=== PATIENT | male | born 1965 | race Caucasian/White ===

== ENCOUNTER 2021-06-19 16:50 | Outpatient (REF) | payer OTHER, SELFPAY ==
--- NOTE | ~2021-06-19 | XR_ITS ---
EXAMINATION: XR HIP, LEFT CLINICAL INFORMATION: Pain. COMPARISON: None TECHNIQUE: AP and frog-leg lateral views of the left hip. FINDINGS: Bony alignment and mineralization are normal. There is mild narrowing of the superior left acetabular joint space. There is mild subchondral sclerosis of the left acetabular roof. A tiny accessory ossification center is seen lateral to the acetabular roof. No fracture or dislocation is seen. The left femoral head appears smooth. There is a pelvic phlebolith. No foreign body is seen. XR/XR hip LT min 2V IMPRESSION: Mild osteoarthritic change is seen of the left hip. No fracture or dislocation is seen.
--- NOTE | ~2021-06-19 | XR_ITS ---
EXAMINATION: XR LUMBOSACRAL SPINE CLINICAL INFORMATION: Lower back pain. COMPARISON: Radiograph dated 11/11/2019. TECHNIQUE: AP and lateral views of the lumbar spine and lateral view of the lumbosacral junction. FINDINGS: Vertebral body heights are normal. There is a very mild lumbar dextroscoliosis. There is marked disc space narrowing at L3-4. There has been a prior posterior fusion at L4-5, with intact disc spacer, pedicular screws and posterior fixator rods. Alignment is well-maintained, and there is no hardware failure or loosening. The remaining disc spaces are relatively well-maintained. No acute fracture or spondylolisthesis is seen. There is mild spondylosis at L1-2, and moderate spondylosis is seen at L2-3. The paravertebral soft tissues are unremarkable. XR/XR lumbar spine 2-3V IMPRESSION: 1. There is stable alignment status-post L4-5 posterior fusion and discectomy. No hardware failure or loosening is seen. 2. There is marked degenerative disc disease at L3-4. 3. There is mild spondylosis at L1-2, and moderate spondylosis is seen at L2-3. 4. There is a very mild lumbar dextroscoliosis.
== END 2021-06-19 16:51 | disposition home or self-care (01) ==
LOC: HO.XRAY 16:50
PROVIDERS: PCP Internal Medicine Geriatric Medicine; Visit Provider Internal Medicine
DX: M25.552 Pain in left hip (principal); M54.50 Low back pain, unspecified
CPT/HCPCS: 72100; 73502

== ENCOUNTER 2023-06-04 10:18 | Outpatient (REF) | payer OTHER, SELFPAY ==
[2023-06-04 11:38] LABS: MANUAL DIFF FLAG NO
[2023-06-04 11:56] LABS: Basophils Absolute Auto 0.1 X10*3/uL (0.0-0.2); Basophils Percent Auto 0.9 % (0-2); Eosinophils Absolute Auto 0.2 X10*3/uL (0.0-0.4); Eosinophils Percent Auto 4.5 % (0-4); Hematocrit 48.7 % (42.0-52.0); Hemoglobin 15.5 g/dl (14.0-18.0); Lymphocytes Absolute Auto 2.5 X10*3/uL (1.2-4.9); Lymphocytes Percent Auto 46.3 % (20-40); Mean Corpuscular HGB Conc 31.8 g/dl (31.0-36.0); Mean Corpuscular Hemoglobin 26.6 pg (27.0-33.0); Mean Corpuscular Volume 83.7 fL (80.0-98.0); Monocytes Absolute Auto 0.7 X10*3/uL (0.1-1.2); Monocytes Percent Auto 12.2 % (2-11); Neutrophils Absolute Auto 1.9 x10*3/uL (2.0-8.3); Neutrophils Percent Auto 36.1 % (45-73); Platelet Count 293 X10*3/uL (160-400); Red Blood Count 5.82 X10*6/uL (4.60-5.80); White Blood Count 5.3 X10*3/uL (4.8-10.8)
[2023-06-04 12:06] LABS: Anion Gap 11 (12-20); Blood Urea Nitrogen 16 mg/dL (9-16); Calcium 9.9 mg/dL (8.4-10.2); Carbon Dioxide 28 mmol/L (22-29); Chloride 107 mmol/L (96-108); Estimated Glomerular Filt Rate > 60; Glucose Random 92 mg/dL (60-115); Potassium 4.5 mmol/L (3.3-5.1); Sodium 141 mmol/L (135-145)
== END 2023-06-04 10:19 | disposition home or self-care (01) ==
LOC: HO.HHCL 10:18
PROVIDERS: Visit Provider Internal Medicine Geriatric Medicine
DX: M47.9 Spondylosis, unspecified (principal); Z79.1 Long term (current) use of non-steroidal anti-inflammatories (NSAID)
CPT/HCPCS: 36415; 80048; 85025

== ENCOUNTER 2023-10-03 08:09 | Outpatient (REF) | payer OTHER, SELFPAY ==
[2023-10-03 11:49] LABS: MANUAL DIFF FLAG NO
[2023-10-03 12:00] LABS: Basophils Absolute Auto 0.1 X10*3/uL (0.0-0.2); Basophils Percent Auto 1.2 % (0-2); Eosinophils Absolute Auto 0.3 X10*3/uL (0.0-0.4); Eosinophils Percent Auto 4.6 % (0-4); Hematocrit 49.1 % (42.0-52.0); Hemoglobin 15.6 g/dl (14.0-18.0); Imm Gran Abs Auto 0.01 X10*3/uL (0.00-0.03); Imm Gran Pct Auto 0.2 % (0.0-0.4); Lymphocytes Absolute Auto 2.9 X10*3/uL (1.2-4.9); Lymphocytes Percent Auto 47.2 % (20-40); Mean Corpuscular HGB Conc 31.8 g/dl (31.0-36.0); Mean Corpuscular Hemoglobin 26.4 pg (27.0-33.0); Mean Corpuscular Volume 82.9 fL (80.0-98.0); Monocytes Absolute Auto 0.6 X10*3/uL (0.1-1.2); Neutrophils Absolute Auto 2.3 x10*3/uL (2.0-8.3); Neutrophils Percent Auto 37.8 % (45-73); Platelet Count 306 X10*3/uL (160-400); Red Blood Count 5.92 X10*6/uL (4.60-5.80); Red Cell Distribution Width 15.3 % (11.0-16.0); White Blood Count 6.1 X10*3/uL (4.8-10.8)
[2023-10-03 12:37] LABS: Alanine Aminotransferase 37 U/L (0-40); Albumin Level 4.2 g/dL (3.5-5.0); Alkaline Phosphatase 48 U/L (39-117); Anion Gap 13 (12-20); Aspartate Amino Transferase 30 U/L (5-37); Bilirubin Total 0.5 mg/dL (0.0-1.0); Blood Urea Nitrogen 16 mg/dL (9-16); Calcium 9.8 mg/dL (8.4-10.2); Carbon Dioxide 29 mmol/L (22-29); Chloride 104 mmol/L (96-108); Estimated Glomerular Filt Rate > 60; Glucose Random 98 mg/dL (60-115); Potassium 4.9 mmol/L (3.3-5.1); Sodium 141 mmol/L (135-145); Total Protein 7.3 g/dL (6.5-8.0)
== END 2023-10-03 08:10 | disposition home or self-care (01) ==
LOC: HO.HHCL 08:09
PROVIDERS: Visit Provider Internal Medicine Geriatric Medicine
DX: I10 Essential (primary) hypertension (principal); G89.29 Other chronic pain; Z79.1 Long term (current) use of non-steroidal anti-inflammatories (NSAID)
CPT/HCPCS: 36415; 80053; 85025

== ENCOUNTER 2023-11-17 08:02 | Outpatient (REF) | payer OTHER, SELFPAY ==
[2023-11-17 12:35] LABS: Cholesterol 174 mg/dL (<200); HDL Cholesterol 59 mg/dL (>40); LDL Cholesterol Calculated 103 mg/dL (<100); Triglycerides 64 mg/dL (<150)
== END 2023-11-17 08:03 | disposition home or self-care (01) ==
LOC: HO.HHCL 08:02
PROVIDERS: Visit Provider Internal Medicine Geriatric Medicine
DX: Z13.220 Encounter for screening for lipoid disorders (principal); Z13.6 Encounter for screening for cardiovascular disorders
CPT/HCPCS: 36415; 80061

== ENCOUNTER 2024-02-03 10:21 | Outpatient (REF) | payer OTHER, SELFPAY ==
[2024-02-03 12:22] LABS: PSA,Total (Free>4and<10) 3.49 ng/mL (0.00-4.00)
== END 2024-02-03 10:22 | disposition home or self-care (01) ==
LOC: HO.HHCL 10:21
PROVIDERS: Visit Provider Internal Medicine
DX: R39.198 Other difficulties with micturition (principal); R39.9 Unspecified symptoms and signs involving the genitourinary system; Z12.5 Encounter for screening for malignant neoplasm of prostate
CPT/HCPCS: 36415; 84153; 87086

== ENCOUNTER 2024-08-03 17:48 | Outpatient (REF) | payer OTHER, SELFPAY | END 2024-08-03 17:49 | disposition home or self-care (01) | LOC: HO.HHCLNP 17:48 | PROVIDERS: Visit Provider Internal Medicine | DX: J02.9 Acute pharyngitis, unspecified (principal) | CPT/HCPCS: 87070 ==

== ENCOUNTER 2024-10-29 13:58 | Outpatient (REF) | payer OTHER, SELFPAY ==
--- OUTSIDE RECORDS SUMMARY | 2024-10-29 14:00 | XMS_ITS | Encounter Summary ---
Author Organization [employer] Address [address] [facility] [address] [place] [address] Care Team Providers Care Portfolio Analyst Name Role Phone Name, Wali PEARL Primary Care Provider [phone] Reason for Visit * Reason Onset Date Comments Nurse Triage 04/22/2024 Encounter Details Date Type Department Care Team ([facility] st Contact Info) Description 04/22/2024 Telephone [facility] MEDICINE [address] [place] [address] Name, MD Wali [address] [place], [place] [phone] Nurse Triage Social History Tobacco Use Types Packs/Day Years Used Date Smoking Tobacco: Never Passive Smoke Exposure: Never Smokeless Tobacco: Never Alcohol Use Standard Drinks/Week Comments Never 0 (1 standard drink = 0.6 oz pur e alcohol) Depression Answer Date Recorded Patient Health Questionnaire-9 Score 0 11/10/2023 Patient Health Questionnaire-9 Score 0 11/10/2023 Last PHQ-9: Questionnaire Data Not on file 0 11/10/2023 Housing Stability Answer Date Recorded What is your housing situation today? I have codi velez 10/29/[address] you li ve. Do you have problems with any of the following? None of the above 10/29/2023 Food Insecurity Answer Date Recorded Within the past 12 months, y ou worried that your food would run out before you got money to buy more: Never True 10/29/2023 Within the past 12 months,th e food you bought just didn't last and you didn't have enough money to get more: Never True Transportation Answer Date Recorded In the past 12 months, has l ack of transportation kept you from medical appts, meetings, work or from getting things needed for daily living? No 10/29/2023 Utilities Answer Date Recorded In the past 12 months, has t he electric, gas, oil or water company threatened to shut off services in your home? No 10/29/2023 Depression Answer Date Recorded Patient Health Questionnaire-2 Score 0 11/10/2023 Sex and Gender Information Value Date Recorded Sex Assigned at Male 07/15/2022 10:29 AM EDT Legal Sex Male 10:29 AM EDT Gender Identity Male 07/15/2022 10:29 AM EDT Sexual Orientation Choose not to disclose 2021 10:29 AM EDT documented as of this encounter Miscellaneous Notes * Telephone Encounter - Shira Griffiths RN - 04/22/2024 12:39 PM EDT Call returned to Davion Dao to triage below. Reports having some difficulty with sleep. Per pthaving difficutly with sleep x 2 days. No pain or increased use of caffeine. Mild restless legs. Nosnoring or episodes of apnea. Pt has used OTC Melatonin 5mg Gummies with no relief. Per pt tis is something that has discusssed with PCP in past. Pt advised of dispostion, declines sick on stie with team provider. Only wishes to see PCP. No appts for the month of April. Pt advised can call daily or twice a week to see if any cancellations. Will forward note to PCP to review and advise team nurses if any other recommendations for help with insomnia. Reviewed home care advise, ER precautions andreasons to call back. Reviewed [facility] operating hours and that wait times vary. Protocol Used: Insomnia (Adult) Protocol-Based Disposition: See in Office or Video Visit within 2 Weeks Override (Final) Disposition: Discuss with PCP and Callback by Nurse Today Override Reason: Desired specific provider Video visit offer not recorded Positive Triage Question: * Awakened by jerking leg movements * All higher-acuity triage questions were negative Care Advice Discussed: * Reassurance and Education - Dfficulty Sleeping * Tips for Good Sleep * Tips for Good Sleep - What To Avoid * Reasons To Call Back - Insomnia symptoms persist over 2 weeks - You become worse * Telephone Encounter - Deborah Stahl - 04/22/2024 12:13 PM EDT Symptom: Sleeping Difficulty Outcome: Schedule an appointment to be seen within 24 hours Reason: This is the only possible outcome for this symptom documented in this encounter Plan of Treatment Upcoming Encounters Date Type Department Care Team (Late st Contact Info) Description 11/11/2024 10:00 AM EST Office Visit [address] [address] NameWali MD [address] [place] [phone] 12/02/2024 9:15 AM EDT Office Visit [address] [address] Name, MD Wali [address] [place] [phone] documented as of this encounter Visit Diagnoses Not on filedocumented in this encounter Additional Health Concerns Assessment Noted Time PHQ-9 Depression Total Score: 0 11/10/19 10:14 AM EST documented as of this encounter Care Teams Portfolio Analyst Relationship Specialty Start Date End Date Wali Magallanes MD [address] [place] [id number] PCP - General Family Medicine 12/21/15 documented as of this encounter
--- OUTSIDE RECORDS SUMMARY | 2024-10-29 14:01 | XMS_ITS | Encounter Summary ---
Author Organization [employer] Address [address] [facility] [address] [place] [address] Care Team Providers Care Fruit Washer Name Role Phone Name, Wali PEARL Primary Care Provider Reason for Visit * Reason Onset Date Comments Nurse Triage 10/29/2024 Encounter Details Date Type Department Care Team ([facility] st Contact Info) Description 10/29/2024 Telephone [facility] MEDICINE [address] [place] [address] Name, MD Wali [address] [place], [place] [phone] Nurse Triage Social History Tobacco Use Types [...] encounter Miscellaneous Notes * Telephone Encounter - Katty Curiel RN - 10/29/2024 9:31 AM EST Called pt. And Pt. Gave permission to speak with Son. Pt was seen at [facility] ED 10/22/24 and admitted until 10/23/24 for confusion and slight right sided weakness. Multilpe testing was done at [facility] ED and note in chart. Pt. Was DX. With mild TIA. Pt. Was sent home on Aspirin and Plavix. Pt states that he has no weakness and feels great but after he takes the plavix his BP goes up and yesterday while he was sitting on the couch he got a nose bleed for no reason. Pt. States he never gets nose bleeds and the medication is making him feel bad . Pt. Is at PT right now and requesting a call back in an hour. Will call back in an hour for more information. Called pt. Back via permission to speak to Son. Son states that he just got done with PT with Pt. And PT is requesting that the PT be changed to treat upper back due to when pt. Fell the other day from his episode, pt. Has upper back bruising and pain and PT thinks pt. Will benefit better by doing PT on upper back since pt. Has no weakness in extremities after episode and is feeling back to normal. Also, Pt. Did not take his Plavix today because it makes him feel sick and it causes his BP to elevate and he had a bloody nose yesterday while sitting on the couch at rest watching TV. Nosebleed lasted a few minutes but, pt. Did not feel dizzy or lose consciousness from nosebleed. Pt. Does not want to take Plavix. Instructed Son to give pt. His aspirin that was ordered because Son stated that Pt. Did not take Aspirin or Plavix this am. I advised that Aspirin would not be the cause of nose bleed and due to recent episode to at least take the aspirin and to please come to walk in today to discuss concerns about plavix and to get type of PT changed for pt. Son in agreement and will bring Pt. To walk in this afternoon for evaluation and discussion. Note in chart. Protocol Used: Medication Question Call (Adult) Protocol-Based Disposition: Pt. Will go to walk in this afternoon for assessment. Pt. Does have a [facility] appt on 11/11/24 at 10am. Video visit not offered Positive Triage Questions: * Caller has URGENT medicine question about med that PCP or specialist prescribed and triager unable to answer question * Caller wants to use a complementary or alternative medicine * All higher-acuity triage questions were negative * Telephone Encounter - Christophe Louise - 10/29/2024 9:25 AM EST Symptom: Medication Reaction Outcome: Schedule an urgent appointment (within 1 hour) or talk to a nurse or provider soon Reason: Caller denied all higher acuity questions Please contact pt at [phone]. (Denied interpreter for the deaf, stated he is with son.) documented in this encounter Plan of Treatment Upcoming Encounters Date Type Department Care Team (Late st Contact Info) Description 11/11/2024 10:00 AM EST Office Visit [address] [address] Name, MD Wali [address] [place] [phone] 12/02/2024 9:15 AM EDT Office Visit [facility] MEDICINE [address] [place] [address] Name, MD Wali [address] [place] [address] documented as of this encounter Visit Diagnoses Not on filedocumented in this encounter Additional Health Concerns Assessment Noted Time PHQ-9 Depression Total Score: 0 11/10/19 24 10:14 AM EST documented as of this encounter Care Teams Fruit Washer Relationship Specialty Start Date End Date Name, [place] [address] PCP - General Family Medicine 12/21/15 documented as of this encounter
--- OUTSIDE RECORDS SUMMARY | 2024-10-29 14:01 | XMS_ITS | Continuity of Care Document ---
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 Name Role Phone Name Wali PEARL Primary Care Physician [phone] Encounter [facility] [place] [facility] Date(s): 10/22/24 - 10/23/[address] [address]- Discharge Disposition: A-D/C Home Attending Physician: Ivy Uriostegui MD Admitting Physician: Dedrick Velez MD Referring Physician: Not on Staff, Referring MD Encounter Type: Disch Obv Allergies, Adverse Reactions, Alerts No Known Allergies Immunizations Given and Recorded Vaccine Date Status Refusal Reason influenza virus vaccine, inactivated 1 07/14/14 [facility] tetanus-diphtheria toxoids (Td) 2 03/29/13 Given 1Result Comment: [07/14/2014] GIVEN W/O INCIDENT....AA 2Result Comment: [03/29/2013] given w/o incident. Medications aspirin 81 mg oral tablet, chewable 81 mg, By Mouth, Daily, # 90 tablet, Refills 0, Tot. Refills 0, Maintenance, 10/23/24 12:25:00 PM EST, Route to Pharmacy Electronically, [facility] #[id number], Partial fill upon patient request if the prescription is for a schedule II opioid drug., 186, cm, 10/23/24 10:41:00 EST, Height, 80.4, kg, 10/23/24 4:25:00 EST, Dry Weight Start Date: 10/23/24 Stop Date: 01/21/25 Status: Ordered Quantity: 90.0 Unit: tablet Repeat number: 1 gabapentin 300 mg oral capsule See Instructions, 1 capsule By Mouth Daily at bedtime for 2 weeks the increase to twice a day., # 60 capsule, 5 Refills, Maintenance, 01/12/15 12:41:59 PM EDT, Capsule, [facility]/pharmacy #[id number] Start Date: 01/12/15 Status: Ordered Quantity: 60.0 Unit: capsule Repeat number: 6 lisinopril 20 mg oral tablet 20 mg, 1, tablet, By Mouth, Daily, # 30 tablet, Refills 0, Maintenance, 10/22/24 10:50:00 PM EST, Partial fill upon patient request if the prescription is for a schedule II opioid drug. Start Date: 10/22/24 Status: Ordered Quantity: 30.0 Unit: tablet Repeat number: 1 naproxen 500 mg oral tablet 1 tablet = 500 mg, By Mouth, 2 times a day, PRN as needed for pain, with food, # 60 tablet, 5 Refills, Maintenance, 01/12/15 12:41:05 PM EDT, Tablet, [facility]/pharmacy #[id number] Start Date: 01/12/15 Stop Date: 07/11/15 Status: Ordered Quantity: 60.0 Unit: tablet Repeat number: 6 NuLYTELY Lemon Lummi oral powder for reconstitution 240 mL, By Mouth, Every 10 minutes, # 1 each, 0 Refills, Maintenance, 08/22/14 10:41:03 AM EST, REC Powder, [facility]/pharmacy #[id number] Start Date: 08/22/14 Status: Ordered Quantity: 1.0 Unit: each Repeat number: 1 Plavix 75 mg oral tablet 75 mg, By Mouth, Daily, # 21 tablet, Refills 0, Tot. Refills 0, Maintenance, 10/23/24 12:25:00 PM EST, Route to Pharmacy Electronically, [facility] #[id number], Partial fill upon patient request if the prescription is for a schedule II opioid drug., 186, cm, 10/23/24 10:41:00 EST, Height, 80.4, kg, 10/23/24 4:25:00 EST, Dry Weight Start Date: 10/23/24 Stop Date: 11/13/24 Status: Ordered Quantity: 21.0 Unit: tablet Repeat number: 1 Problem List Condition Confirmation Course Effective Dates Status H ealth Status Informant Family history of cardiovascular disease (mom) Confirmed Active Family history of depression (mom) Confirmed Active Family History of Diabetes Mellitus (mom) Confirmed Active Family history of hypertension (mom, dad, sister) Confirmed Active Family history of lung cancer (maternal aunt) Confirmed Active Positive PPD Confirmed 03/16/15 Active H/O vertigo Confirmed Active Hypertension Confirmed Active Lumbar disc herniation s/p surgery Confirmed 2002 Active Osteoarthritis of back Confirmed 12/27/13 Active Vitamin D Deficiency Confirmed 10/05/09 Active Results Radiology Reports * Exam Date Time Procedure Performing Provider Status 10/23/24 3:02 AM Chest 2 Views Frontal and Lat Calixto Da Silva (Verified) Notes: (Chest 2 Views Frontal and Lat) Reason For Exam: Stroke;Other: RESULT: Chest 2 Views Frontal and Lat Chest 2 Views Frontal and Lat INDICATION/CLINICAL QUESTION: Reason: Other:; Stroke; Clinical Question(s): CHF / CHF TECHNIQUE: Frontal and lateral views of the chest. COMPARISON: 03/16/2015. FINDINGS: LINES AND TUBES: None. LUNGS AND PLEURA: RIGHT CHEST: The right lung is clear and there is no right effusion. LEFT CHEST: The left lung is clear and there is no left effusion. HEART, MEDIASTINUM AND LEANNA: The heart is of normal size. The mediastinum and leanna are normal. BONES AND SOFT TISSUES: No acute bony abnormality. IMPRESSION: 1. No active disease in chest. WSN: [id number] Ordering Physician: Annette Torres Dictated By: Stoney Archuleta MD Dictated Date/Time: 10/23/24 8:36 am Reviewed By: Stoney Archuleta MD Signed By: Stoney Archuleta MD Signed Date/Time: 10/23/24 8:36 am Transcribed By: ASAD Transcribed Date/Time: 10/23/24 8:35 am * Exam Date Time Procedure Performing Provider Status 10/22/24 7:[address] Angio Neck Hyperacute Stroke Rashi Longoria (Verified) Notes: (CT Angio Neck Hyperacute Stroke) Reason For Exam: Aneurysm, neck vessel(s);Other: RESULT: CT Angio Neck Hyperacute Stroke CT Angio Head Hyperacute Stroke, CT Angio Neck Hyperacute Stroke Reason: Other:; Stroke; Clinical Question(s): Other:; Hematoma Aneurysm / Other: TECHNIQUE: CT angiogram of the head and neck was performed after bolus administration of intravenous contrast. 100 mL of Isovue 300 was administered intravenously. Coronal and sagittal MIP reformatted images were obtained. Additional 3-D images were created on a separate workstation under concurrent supervision by the attending radiologist. All stenoses are measured using NASCET criteria. Weight-based protocol using automatic tube modulation was used to optimize exposure parameters. RADIATION DOSE PARAMETERS: CTDIvol Body: 28.50 mGy, DLP Body: 610 mGy*cm. CTDIvol Head: 45.70 mGy, DLP Head: 773 mGy*cm. COMPARISON: Noncontrast CT head performed concurrently. FINDINGS: CTA OF THE NECK: Arch: There is a three vessel aortic arch. There is mild atherosclerotic plaque of the aortic arch,but origins of the supra aortic vessels are patent. Right carotid system: The common carotid and cervical internal carotid arteries are patent. No stenosis (0%) by NASCET criteria. There is no dissection or aneurysm. Left carotid system: The common carotid and cervical internal carotid arteries are patent. There ispartially calcified atherosclerotic plaque at the carotid bifurcation, but no ICA stenosis (0%) by NASCET criteria. There is no dissection or aneurysm. There is a left-dominant vertebral artery system. Right vertebral: No significant stenosis. No evidence of dissection or aneurysm. Left vertebral: No significant stenosis. No evidence of dissection or aneurysm. Other: Soft tissues and bones: No evidence of lymphadenopathy or mass. The thyroid is unremarkable. Visualized lungs are blurred by motion artifact, without significant superimposed airspace opacity. Multilevel degenerative changes of the spine are noted, without acute osseous abnormality. CTA OF THE HEAD: Anterior circulation: Bilateral intracranial ICAs demonstrate atherosclerotic calcification, without stenosis. Bilateral NADIA and MCA branches are patent. There is no significant stenosis, proximal cutoff, aneurysm, or vascular malformation. Posterior circulation: Bilateral vertebral arteries, the basilar artery, and bilateral PICA, SCA, and RECREATIONAL THERAPY AIDE branches are patent. There is no significant stenosis, proximal cutoff, aneurysm, or vascularmalformation. Veins: Major dural venous sinuses are patent. Other: Soft tissues and bones: No midline shift or effacement of the basal cisterns. No space-occupying hemorrhage. No acute territorial loss of mandujano-white matter differentiation. There is medialization of the right lamina papyracea consistent with prior orbital blowout fracture. Orbits are otherwise unremarkable. No significant opacification in the paranasal sinuses or mastoid air cells. IMPRESSION: No proximal occlusion or high grade stenosis in the major arteries of the head and neck. A similar preliminary report was provided by [facility]. WSN: [id number] Ordering Physician: Annette Torres Dictated By: Margo Ho MD Dictated Date/Time: 10/23/24 7:54 am Reviewed By: Margo Ho MD Signed By: Margo Ho MD Signed Date/Time: 10/23/24 7:54 am Transcribed By: ASAD Transcribed Date/Time: 10/23/24 7:50 am * Exam Date Time Procedure Performing Provider Status 10/22/24 7:[address] Angio Head Hyperacute Stroke Kelley Longoria; Auth (Verified) Notes: (CT Angio Head Hyperacute Stroke) Reason For Exam: Stroke;Other: RESULT: CT Angio Head Hyperacute Stroke CT Angio Head Hyperacute Stroke, CT Angio Neck Hyperacute Stroke Reason: Other:; Stroke; Clinical Question(s): Other:; Hematoma Aneurysm / Other: TECHNIQUE: CT angiogram of the head and neck was performed after bolus administration of intravenous contrast. 100 mL of Isovue 300 was administered intravenously. Coronal and sagittal MIP reformatted images were obtained. Additional 3-D images were created on a separate workstation under concurrent supervision by the attending radiologist. All stenoses are measured using NASCET criteria. Weight-based protocol using automatic tube modulation was used to optimize exposure parameters. RADIATION DOSE PARAMETERS: CTDIvol Body: 28.50 mGy, DLP Body: 610 mGy*cm. CTDIvol Head: 45.70 mGy, DLP Head: 773 mGy*cm. COMPARISON: Noncontrast CT head performed concurrently. FINDINGS: CTA OF THE NECK: Arch: There is a three vessel aortic arch. There is mild atherosclerotic plaque of the aortic arch,but origins of the supra aortic vessels are patent. Right carotid system: The common carotid and cervical internal carotid arteries are patent. No stenosis (0%) by NASCET criteria. There is no dissection or aneurysm. Left carotid system: The common carotid and cervical internal carotid arteries are patent. There ispartially calcified atherosclerotic plaque at the carotid bifurcation, but no ICA stenosis (0%) by NASCET criteria. There is no dissection or aneurysm. There is a left-dominant vertebral artery system. Right vertebral: No significant stenosis. No evidence of dissection or aneurysm. Left vertebral: No significant stenosis. No evidence of dissection or aneurysm. Other: Soft tissues and bones: No evidence of lymphadenopathy or mass. The thyroid is unremarkable. Visualized lungs are blurred by motion artifact, without significant superimposed airspace opacity. Multilevel degenerative changes of the spine are noted, without acute osseous abnormality. CTA OF THE HEAD: Anterior circulation: Bilateral intracranial ICAs demonstrate atherosclerotic calcification, without stenosis. Bilateral NADIA and MCA branches are patent. There is no significant stenosis, proximal cutoff, aneurysm, or vascular malformation. Posterior circulation: Bilateral vertebral arteries, the basilar artery, and bilateral PICA, SCA, and RECREATIONAL THERAPY AIDE branches are patent. There is no significant stenosis, proximal cutoff, aneurysm, or vascularmalformation. Veins: Major dural venous sinuses are patent. Other: Soft tissues and bones: No midline shift or effacement of the basal cisterns. No space-occupying hemorrhage. No acute territorial loss of mandujano-white matter differentiation. There is medialization of the right lamina papyracea consistent with prior orbital blowout fracture. Orbits are otherwise unremarkable. No significant opacification in the paranasal sinuses or mastoid air cells. IMPRESSION: No proximal occlusion or high grade stenosis in the major arteries of the head and neck. A similar preliminary report was provided by [facility]. WSN: [id number] Ordering Physician: Annette Torres Dictated By: Margo Ho MD Dictated Date/Time: 10/23/24 7:54 am Reviewed By: Margo Ho MD Signed By: Margo Ho MD Signed Date/Time: 10/23/24 7:54 am Transcribed By: ASAD Transcribed Date/Time: 10/23/24 7:50 am * Exam Date Time Procedure Performing Provider Status 10/23/24 12:06 AM MRI Brain W/O Contrast Queen , Naman cosmo; Auth (Verified) Notes: (MRI Brain W/O Contrast) Reason For Exam: stroke;Aphasia RESULT: MRI Brain W/O Contrast MRI Brain W/O Contrast INDICATION / CLINICAL QUESTION: Reason: Aphasia; stroke; Clinical Question(s): Infarction; weakness; Order Comment: Please see Reference Text for complete list of contraindications Infarction TECHNIQUE: MRI of the brain was performed without contrast utilizing sagittal T1, axial T2, axial FLAIR, axial SWAN, and axial DWI sequences. COMPARISON: CT and CTA head 10/22/2024. FINDINGS: BRAIN and EXTRA-AXIAL SPACES: On diffusion weighted imaging, there are no regions of restricted diffusion to indicate an acute or subacute infarct. There is no evidence of intracranial hemorrhage on susceptibility sensitive sequence. There is no mass effect, midline shift, or effacement of the basal cisterns. Major intracranial flow voids are present. Minimal nonspecific T2 prolongation is seen in the right centrum semiovale. Parenchymal signal is otherwise preserved. Ventricles, cisterns, and sulci are normal in size and configuration, without hydrocephalus. No abnormal extra-axial fluid collections are seen. Meningeal surfaces are normal. The midline structures, including sella, corpus callosum, and craniocervical junction, are unremarkable. EXTRACRANIAL SOFT TISSUES: Orbits are unremarkable. Paranasal sinuses and mastoids are unremarkable. BONES: Marrow signal is preserved. IMPRESSION: No acute/subacute infarct, mass, hemorrhage, or other acute intracranial abnormality. WSN: [id number] Ordering Physician: Magen Morfin Dictated By: Margo Ho MD Dictated Date/Time: 10/23/24 7:54 am Reviewed By: Margo Ho MD Signed By: Mrago Ho MD Signed Date/Time: 10/23/24 7:54 am Transcribed By: ASAD Transcribed Date/Time: 10/23/24 7:50 am * Exam Date Time Procedure Performing Provider Status 10/22/24 7:[address] Head-Hyper Acute Stroke Marshall Garcia; Auth (Verified) Notes: (CT Head-Hyper Acute Stroke) Reason For Exam: Neuro deficit, acute, stroke suspected;Other: RESULT: CT Head-Hyper Acute Stroke CT Head-Hyper Acute Stroke INDICATION: Reason: Other:; Neuro deficit, acute, stroke suspected; Clinical Question(s): Other:; Hematoma Infarction TECHNIQUE: Noncontrast head CT using axial technique and reconstructed in axial and coronal planes.Iterative reconstruction techniques are used to optimize dose and image quality. CTDIvol Body: 28.50 mGy, DLP Body: 610 mGy*cm. CTDIvol Head: 45.70 mGy, DLP Head: 773 mGy*cm. COMPARISON: None. FINDINGS: Graduate Fellow view findings, lines and tubes: None. BRAIN AND EXTRA-AXIAL SPACES: No parenchymal hemorrhage, midline shift, or mass effect. Mandujano-white matter differentiation is wellpreserved. No acute infarct. Negative insular ribbon sign. Atherosclerotic vascular calcification of the carotid arteries but negative hyperdense vessel sign. Ventricles, sulci, and basilar cisterns are normal. No white matter lesions. No subarachnoid hemorrhage. No subdural or epidural collection. CALVARIUM, SKULL BASE, AND SOFT TISSUES: No fractures or suspicious bony lesions. The paranasal sinuses and mastoid air cells are clear. Visualized orbits and globes are intact. The extracranial soft tissues are unremarkable. IMPRESSION: No acute intracranial abnormality. No acute intracranial hemorrhage. WSN: [id number] Ordering Physician: Annette Torres Dictated By: Tresa Nuñez MD Dictated Date/Time: 10/22/24 7:52 pm Reviewed By: Tresa Nuñez MD Signed By: Tresa Nuñez MD Signed Date/Time: 10/22/24 7:52 pm Transcribed By: ASAD Transcribed Date/Time: 10/22/24 7:50 pm Vital Signs Most recent to oldest [Reference Range]: 1 2 3 Height 186 cm (10/23/24 10:41 AM) 186 cm (10/23/24 7:22 AM) 186 cm (10/22/24 11:02 PM) Weight 80.4 kg (10/22/24 11:02 PM) 80.4 kg (10/22/24 10:46 PM) Oxygen Saturation [94-100 %] 100 % (10/23/24 10:41 AM) 100 % (10/23/24 7:22 AM) 98 % (10/23/24 3:05 AM) Pulse Rate [55-90 bpm] 69 bpm (10/23/24 10:41 AM) 70 bpm (10/23/24 7:22 AM) 76 bpm (10/23/24 3:05 AM) Body Mass Index [18.5-24.99 kg/m2] 23.24 kg/m2 (10/22/24 11:02 PM) Blood Pressure [90-138/55-84 mm Hg] 135/81mm Hg (10/23/24 10:41 AM) 131/85mm Hg (10/23/24 7:22 AM) 116/81mm Hg (10/23/24 3:05 AM) Respiratory Rate [16-30 br/min] 18 br/min (10/23/24 10:41 AM) 18 br/min (10/23/24 7:22 AM) 16 br/min (10/23/24 7:00 AM) Temperature [96.8-100.4 DegF] 97.7 DegF (10/23/24 10:41 AM) 97.2 DegF (10/23/24 7:22 AM) 97.9 DegF (10/23/24 3:05 AM) Mode of Delivery (Oxygen) Room air (10/23/24 10:41 AM) Room air (10/23/24 7:22 AM) Room air (10/23/24 3:05 AM) Blood pressure sites Arm, left (10/23/24 10:41 AM) Arm, left (10/23/24 7:22 AM) Arm, right (10/23/24 3:05 AM) Temperature Route Oral (10/23/24 10:41 AM) Oral (10/23/24 7:22 AM) Oral (10/23/24 3:05 AM) Dry Weight 80.4 kg (10/22/24 11:02 PM) Weight Obtained Via Standing scale (10/22/24 10:46 PM) Social History Social History Type Response Smoking Status Never smoker entered on: 12/27/13 Sex Sex Representation Male (finding) Admission evaluation note * Agustin PEARL, Dedrick Murray: PERFORM Event Display: Admission Note Authored Date: Patient: ??DAVION QUINONES ? Age:??59 Years?Sex:??Male?:??1965?? Chief Complaint/Reason for Consultation from [employer], LKWT 30 mins [employer]IGH [employer], pt developed sudden onset aphasia and R sided weakness. Speaking one word at a time.. History of Present Illness 59-year-old Sudanese-speaking male with past medical history of hypertension, chronic back pain??whoBIBEMS due to syncope. ?? [facility] in middle of getting haircuts??with his son.?He suddenly felt??dizzy and blurry vision and went to the??outside to be able to get a fresh air??then syncopized??and fall on his backwards??with minimal trauma on his head.?Son reported that??although he was conscious??was talking slowly in the beginning??no urinary or stool incontinence.?When patient arrived to ED??he was speaking 1 word at a time??so stroke code is activated.?CT head hyperacute without acute abnormality.?? Neurology was consulted recommending admission??for full stroke workup.?When Isaw the patient??he was alert and oriented??was talking full sentences without any difficulty??had no signs of??any focal neurodeficit.?He reported having blurry vision??and was not feeling well??but did not have any focal weakness or sensation loss.? For the last couple of months patient has been following with PCP for possible postural hypotension.?He was??feeling dizzy and lightheaded and his medication dose was decreased from lisinopril 40-20 and amlodipine 10 to 5 mg.?For the last couple of days patient is having chills but??no chest pain, shortness of breath, abdominal pain, diarrhea, nausea or vomiting. ?? ED course remarkable for BP 148/95, on room air saturating 99, heart rate 93, afebrile CBC grossly unremarkable BMP creatinine 1.12 (baseline) Glucose 114 High sensitive troponin less than 6 CT head hyperacute stroke without acute abnormality CT angio head hyperacute stroke in process Neurology has consulted recommended MRI Patient was given aspirin 324 mg, Plavix 75 mg, NaCl 1000 mL Review of Systems None except as above Objective Vital Signs?? Temperature: 97.9 DegF (10/22/24 22:46:00) Temperature Route: Oral (10/22/24 22:46:00) Pulse Rate: 73 bpm (10/22/24 22:46:00) Respiratory Rate: 19 br/min (10/22/24 22:46:00) Systolic Blood Pressure: 129 mm Hg (10/22/24 22:46:00) Diastolic Blood Pressure: 81 mm Hg (10/22/24 22:46:00) Blood pressure sites: Arm, right (10/22/24 22:46:00) Mean Arterial Pressure: 97 mm Hg (10/22/24 22:46:00) Pulse Pressure: 48 mm Hg (10/22/24 22:46:00) Oxygen Saturation: 98 % (10/22/24 22:46:00) Mode of Delivery (Oxygen): Room air (10/22/24 22:46:00) Early Warning Score: 2 (10/22/24 22:46:47) ? NIH Stroke Scale Level of Consciousness for Stroke Scale: Alert (10/22/24 19:48:00) Response Month/Age: Answers both questions correctly (10/22/24 19:48:00) Response Open/Close Eyes: Performs both tasks correctly (10/22/24 19:48:00) Best Gaze: Normal (10/22/24 19:48:00) Visual: No visual loss (10/22/24 19:48:00) Facial Palsy: Normal symmetrical movements (10/22/24 19:48:00) Motor Function Left Arm: No drift (10/22/24 19:48:00) Motor Function Right Arm: No drift (10/22/24 19:48:00) Motor Function Left Leg: No drift (10/22/24 19:48:00) Motor Function Right Leg: No drift (10/22/24 19:48:00) Limb Ataxia: Absent (10/22/24 19:48:00) Sensory: Normal; no sensory loss (10/22/24 19:48:00) Best Language: No aphasia (10/22/24 19:48:00) Dysarthria NIH Stroke Scale: Normal (10/22/24 19:48:00) Extinction and Inattention: No abnormality (10/22/24 19:48:00) NIH Stroke Scale Score: 0 (10/22/24 19:48:00) ? Physical Exam Gen- not in acute distress,comfortably lying on bed, speaking in full sentences. HEENT- Normocephalic, Atraumatic, No pallor, icterus Neck-supple, no JVD Heart-S1S2(+),??regular, no murmurs. lungs- Clear, b/l air entry, no wheezing. Abdomen-soft, nontender,nondistended,??bowel sounds present, No guarding. Extremities-pulses palpable. No pedal edema. No calf tenderness. Neurological- AAO??3. No gross focal neurological deficits noted. Psychiatric-patient???s mood is stable. Assessment/Plan Diagnoses Chronic back pain ??(M54.9) Hypertension ??(I10) Syncope ??(R55) ?? Assessment:??59-year-old Sudanese-speaking male with past medical history of hypertension, chronic back pain??who BIBEMS due to syncope. ?? Chronic back pain (M54.9):??Patient takes naproxen frequently??advised to??avoid Resume gabapentin ?? Hypertension (I10):??Patient is on lisinopril 20 mg, amlodipine 5 mg recently decreased due to possible orthostatic hypotension ?? Orthostatic vitals Current BP 140/90??after 1000 cc NaCl,??will hold antihypertensives and monitor BP ?? Syncope (R55):??Patient presented with syncope,??had a??blurry vision??before hand.?Denied chestpain, shortness of breath, focal weakness or sensation.?Initially was talking 1 word at a time,??stroke code was activated,??neuro was consulted.? Plan Neurochecks every 4 hours Orthostatic vitals - s/p 1000cc NAcl in ED Telemetry monitoring Continue aspirin 81 mg daily Continue Plavix 75 mg daily Passed bedside swallowing test Blood pressure goal : control below systolic 200 unless ecg changes or TYREE then no needed for permissive HTN, after 24 hr aim for SBP below 180, and long-term 6 weeks BP goal less than 130/80 Added on A1c, lipid panel, TSH Echocardiogram ordered MRI brain without contrast ordered Subcu heparin for DVT prophylaxis ?? VTE Prophylaxis:??heparin sq ?VTE Prophylaxis Assessment:??VTE Prophylaxis Ordered ?? Discharge Planning:??home ?? Ongoing Medical Necessity:??CVA rule out, syncope ?? Code Status:??Full code ?Order Code Status:??Code Status Ordered ?? Pt is seen on 10/22 ?? I spent a total of??65 minutes in patient care that includes??reviewing the chart and medical records, speaking with the patient, examining the patient, interpreting labs/imaging/ekg, formulating anddiscussing the treatment plan, counseling the patient, placing orders, communicating with??consultants and nurses??and documenting the encounter. ?? Please note that I have used [employer] system to??transcribe??this note and it may contain unintentional errors. Please feel free to contact me for any clarification. ?? Estimated Discharge Date ? Histories Allergies Allergies ?(Active and Proposed Allergies Only) NKA? (Severity: Unknown severity, Onset: Unknown) ? Past Medical History/Problem List Active Problems(11) Family history of cardiovascular disease (mom) Family history of depression (mom) Family History of Diabetes Mellitus (mom) Family history of hypertension (mom, dad, sister) Family history of lung cancer (maternal aunt) H/O vertigo Hypertension Lumbar disc herniation s/p surgery Osteoarthritis of back Positive PPD Vitamin D Deficiency ? Past Surgical History Colonoscopy: 10/25/14 ? Social History Tobacco Details:??Use: Never smoker. ? Family History No Family History documented. ? Medications Home Medications Amlodipine (amLODIPine 5 mg oral tablet)??1 tab(s) 5 Milligram By Mouth Daily Gabapentin (gabapentin 300 mg oral capsule)??See Instructions 1 capsule By Mouth Daily at bedtime for 2 weeks the increase to twice a day. Lisinopril (lisinopril 20 mg oral tablet)??20 Milligram 1 tablet By Mouth Daily Naproxen (naproxen 500 mg oral tablet)??1 tab(s) 500 Milligram By Mouth 2 times a day as needed as needed for pain for 30 Days with food PEG Electrolyte Solution (NuLYTELY Lemon Lummi oral powder for reconstitution)??240 Milliliter By Mouth Every 10 minutes ? Inpatient Medications Medications (12) Active SCHEDULED: (4) Aspirin 81 mg Chew Tablet (aspirin 81 mg oral tablet, chewable) ??81 mg, By Mouth, Daily Clopidogrel 75 mg Tablet (Plavix 75 mg oral tablet) ??75 mg, By Mouth, Daily Heparin 5000 units/mL Inj (1 mL) (Heparin Inj) ??5,000 units 1 mL, Subcutaneous Injection, 2 times a day NaCl 0.9% Flush 3ml (NaCL 0.9% Flush) ??3 mL, IV Push, Every 8 hours CONTINUOUS: (0) PRN: (8) Acetaminophen 325 mg Tablet (Acetaminophen Tablet) ??650 mg, By Mouth, Every 4 hours Dextromethorphan-Guaifenesin 20 mg-200 mg/10 mL Liqu UD (Robitussin DM Liquid) ??10 mL, By Mouth, Every 4 hours Docusate Sodium 100 mg Capsule (Docusate Sodium Capsule) ??100 mg 1 capsule, By Mouth, 2 times a day Melatonin 3 mg Tablet (Melatonin Tablet) ??3 mg, By Mouth, Daily at bedtime NaCl 0.9% Flush 3ml (NaCL 0.9% Flush) ??3 mL, IV Push, Every 8 hours Polyethylene Glycol 17 Gm Powder (MiraLax Powder) ??17 Gm 1 pack/packet, By Mouth, Daily Senna Tablet ??8.6 mg 1 tablet, By Mouth, 2 times a day Simethicone 80 mg Chewable Tablet (Simethicone Tablet) ??80 mg, Chew, 3 times a day ? Results Recent Labs BLOOD COUNT & DIFF WBC 10.5 k/mm3 ()?? 10/22/2024 20:11 RBC 5.45 m/mm3 ()?? 10/22/2024 20:11 Hgb 14.4 Gm/dL ()?? 10/22/2024 20:11 Hct 44.1 % ()?? 10/22/2024 20:11 MCV 80.9 femtoliters ()?? 10/22/2024 20:11 MCH 26.4 pg (Low)?? 10/22/2024 20:11 MCHC 32.7 Gm/dL (Low)?? 10/22/2024 20:11 Platelet Count 255 k/mm3 ()?? 10/22/2024 20:11 RDW-SD 46.3 femtoliters ()?? 10/22/2024 20:11 MPV 9.4 femtoliters ()?? 10/22/2024 20:11 Nucleated RBC (Automated) 0.0 #/100 WBC'S ()?? 10/22/2024 20:11 Abs. NRBC 0.0 k/mm3 ()?? 10/22/2024 20:11 Abs. Neut 6.7 k/mm3 ()?? 10/22/2024 20:11 Abs. Lymph 2.5 k/mm3 ()?? 10/22/2024 20:11 Abs. Coal 0.9 k/mm3 ()?? 10/22/2024 20:11 Abs. Eo 0.2 k/mm3 ()?? 10/22/2024 20:11 Abs. Baso 0.1 k/mm3 ()?? 10/22/2024 20:11 Neut % 64.3 % ()?? 10/22/2024 20:11 Lymph % 23.9 % ()?? 10/22/2024 20:11 Coal % 8.7 % ()?? 10/22/2024 20:11 Eos % 2.2 % ()?? 10/22/2024 20:11 Baso % 0.5 % ()?? 10/22/2024 20:11 Imm Gran 0.4 % ()?? 10/22/2024 20:11 Abs. Imm Gran 0.0 k/mm3 ()?? 10/22/2024 20:11 ?? CARDIAC High Sensitivity Troponin (HSTnT) <6 ng/L ()?? 10/22/2024 20:11 ?? CHEM GENERAL Sodium 136 mmol/L ()?? 10/22/2024 20:11 Potassium 3.8 mmol/L ()?? 10/22/2024 20:11 Chloride 101 mmol/L ()?? 10/22/2024 20:11 Bicarbonate Level 26 mmol/L ()?? 10/22/2024 20:11 Anion Gap 9 mmol/L ()?? 10/22/2024 20:11 Glucose Level 114 mg/dL (High)?? 10/22/2024 20:11 Glucose, POC 113 mg/dL (High)?? 10/22/2024 19:35 BUN 16 mg/dL ()?? 10/22/2024 20:11 Creatinine-Blood 1.12 mg/dL ()?? 10/22/2024 20:11 Estimated GFR Creatinine 75 ML/MIN/1.73 M2 ()?? 10/22/2024 20:11 Calcium 9.1 mg/dL ()?? 10/22/2024 20:11 AST (SGOT) 25 units/L ()?? 10/22/2024 20:11 ?? COAG INR 1.1 ()?? 10/22/2024 20:11 Protime (PT) 11.5 seconds (High)?? 10/22/2024 20:11 APTT 25.6 seconds ()?? 10/22/2024 20:11 ? Abnormal Labs ?? BLOOD COUNT & DIFF Abs. Imm Gran?0.0 k/mm3 ()?10/22/2024 20:11 Abs. NRBC?0.0 k/mm3 ()?10/22/2024 20:11 Imm Gran?0.4 % ()?10/22/2024 20:11 MCH?26.4 pg (Low)?10/22/2024 20:11 MCHC?32.7 Gm/dL (Low)?10/22/2024 20:11 Nucleated RBC (Automated)?0.0 #/100 WBC'S ()?10/22/2024 20:11 RDW-SD?46.3 femtoliters ()?10/22/2024 20:11 ?? CARDIAC High Sensitivity Troponin (HSTnT)?<6 ng/L () ?:11 ?? CHEM GENERAL Estimated GFR Creatinine?75 ML/MIN/1.73 M2 ()?10/22/2024 20:11 Glucose Level?114 mg/dL (High)?10/22/2024 20:11 Glucose, POC?113 mg/dL (High)?10/22/2024 19:35 ?? COAG Protime (PT)?11.5 seconds (High)?10/22/2024 20:11 ?? Note: Critical results are displayed in red. ? Urinalysis?? No qualifying data available. ?? Blood Gases?? No qualifying data available. ? EKG study * Event Display: ECG 12-Lead Authored Date: Please click on pdf link to open report * Event Display: ECG 12-Lead Authored Date: Ventricular Rate: 89 BPM Atrial Rate: 89 BPM P-R Interval: 148 ms QRS Duration: 94 ms Q-T Interval: 352 ms QTC Calculation(Bazett): 428 ms P [place]: 36 degrees R [place]: -32 degrees T [place]: 46 degrees Normal sinus rhythm Left axis deviation Incomplete right bundle branch block Minimal voltage criteria for LVH, may be normal variant ( R in aVL ) Abnormal ECG When compared with ECG of 07-Jun-2013 08:34, T wave inversion no longer evident in Inferior leads Confirmed by KATHY OLIVO MD ([id number]) on 10/23/2024 10:04:39 AM [place]: KATHY OLIVO MD Cardiology * Event Display: Cardiac Rhythm Strips Authored Date: Hospital Progress note * Justice Martel: PERFORM, MODIFY, MODIFY Event Display: Progress Note Hospital Authored Date: Patient: ??DAVION QUINONES ? Age:??59 Years?Sex:??Male?:??1965?? Chief Complaint from [employer], [employer] 30 mins [employer], pt developed sudden onset aphasia and R sided weakness. Speaking one word at a time.. History of Present Illness Interval hx: - MRI brain negative for acute stroke - exam stable, nonfocal. says he feels back to baseline Review of Systems no complaints of pain or discomfort Physical Exam Vitals & Measurements T:??97.2?F?? HR:??70??(Peripheral)?? RR:??18?? BP:??131/85?? SpO2:??100%?? HT:??186??cm?? WT:??80.4??kg?? BMI:??23.24? Neuro Exam ?? Mental Status: ?alert and oriented to person, place, month, and year ?fluent and appropriate speech, no dysarthria ?able to identify simple objects ?able to follow simple and 2 step commands Cranial nerves:?PERRL ?EOMI ?VFF ?equal light touch sensation ?no facial asymmetry or droop no ptosis noted bilaterally muscle strength: ?appropriate muscle tone and bulk ?no tremors ?5/5 UE ?5/5 LE Sensation ?equal light touch sensation UE and LE Cerebellum ?Finger to nose intact bilaterally?Gait not assessed ?? Assessment/Plan Davion is a 59 year old Sudanese speaking male with a significant past medical hx of HTN who presented from the hospital for speech disturbances and LOC. Patient was reportedly at a [employer] when hedeveloped dizziness, went outside and synopsized. Upon arrival to hospital, concern for speech, speaking one word at a time and possible right sided weakness. MRI brain negative, exam nonfocal feels back to baseline. ?? DDX: dizziness followed by syncope and transient speech disturbance (Speaking one word at a time?) and transient right sided weakness??, MRI brain negative. Likely TIA ?? Recommendations: - No further neuro workup required at this time - will follow up stroke clinic - okay to continue DAPT until 3 weeks then Aspirin monotherapy ?? Neurology will sign off Discussed w/ Dr. Chawla and Dr. Uriostegui Problem List/Past Medical History Ongoing Family history of cardiovascular disease (mom) Family history of depression (mom) Family History of Diabetes Mellitus (mom) Family history of hypertension (mom, dad, sister) Family history of lung cancer (maternal aunt) H/O vertigo Hypertension Lumbar disc herniation s/p surgery Osteoarthritis of back Positive PPD Vitamin D Deficiency Procedure/Surgical History Colonoscopy: 10/25/14 Home Medications Amlodipine: 5 mg = 1 tablet, By Mouth, Daily Gabapentin: See Instructions, 1 capsule By Mouth Daily at bedtime for 2 weeks the increase to twicea day. Lisinopril: 20 mg = 1 tablet, By Mouth, Daily Naproxen: 500 mg = 1 tablet, By Mouth, 2 times a day, PRN (as needed for pain), with food PEG Electrolyte Solution: 240 mL, By Mouth, Every 10 minutes Consult note * Navjot PEARL, Magen: MODIFY, SIGN, VERIFY, PERFORM Event Display: Consultation Note Authored Date: Patient: DAVION QUINONES Age: 59 years Sex: Male : 1965 Associated Diagnoses: None Author: Navjot PEARL, Magen Visit Information Visit Type Type: Neurological consultation. Acute stroke time Course: Time patient last seen well (not time patient was discovered):1730hrs Time neurology paged:?1910 ETA 5mins arrived 1916 hrs to [facility] ER Time of neurology response:[address] head interpreted:1931hrs Lytic (tNK/ tPA) Given: yes/no; if yes time given:no Reason for Lytic delay if applicable:NA Reason for Lytic (tNK/ tPA) exclusion if not given no measubral e deficits CTA:No proximal LVO on the recons 3dr IA therapy:No target History of Present Illness 89 y/o RHM who is bilingual but predominantly Sudanese speaking and with PMH of HTN who was BIBA from [employer], [facility] 1730hrs when he developed sudden onset aphasia and R sided weakness. Speaking one word at a time and on arrival his NIHSS-0 as noted by ER and this author. Patient states he felt woozy and dizzy and may have passed out and doesn't recall having any speech or language or unilateral weakness, son at bedside did not notice any face droop or any speech changes and notes he is baselines with speech, initially pt was succinct with answers but later had a normal conversation and did not screen on the aphasia screen aidable to name objects and follow multistep commands. No LEMA or CP or SHOB or recent fevers.No known h/o seizures or witnessed sz today. Past Medical History Problem list All Problems Family history of cardiovascular disease (mom) / V17.49 / Confirmed Family history of depression (mom) / V17.0 / Confirmed Family History of Diabetes Mellitus (mom) / V18.0 / Confirmed Family history of hypertension (mom, dad, sister) / V17.49 / Confirmed Family history of lung cancer (maternal aunt) / V16.1 / Confirmed Positive PPD / 060195846 / Confirmed H/O vertigo / 924122760 / Confirmed Hypertension / 401.9 / Confirmed Lumbar disc herniation s/p surgery / 722.10 / Confirmed Osteoarthritis of back / 721.90 / Confirmed Vitamin D Deficiency / 268 / Confirmed Allergies Allergic Reactions (Selected) NKA CURRENT MEDS Amlodipine (amlodipine 10 mg oral tablet) 1 tab(s) 10 Milligram By Mouth Daily for 30 Days Gabapentin (gabapentin 300 mg oral capsule) See Instructions 1 capsule By Mouth Daily at bedtime for 2 weeks the increase to twice a day. Lisinopril (lisinopril 40 mg oral tablet) 1 tab(s) 40 Milligram By Mouth Daily for 30 Days Naproxen (naproxen 500 mg oral tablet) 1 tab(s) 500 Milligram By Mouth 2 times a day as needed as needed for pain for 30 Days with food PEG Electrolyte Solution (NuLYTELY Lemon Lummi oral powder for reconstitution) 240 Milliliter By Mouth Every 10 minutes Surgical History Procedure/Surgical Profile Colonoscopy (SNOMED CT [id number]) on 10/25/2014 at 49 Years. Comments: 10/26/2014 10:51 EST - Shakira Ritter 10 yr return Social History Social History Tobacco Details: Use: Never smoker. . Family History No family history of stroke at young age Review of Systems Review of Systems Significant: ALL OTHER SYSTEMS REVIEWED & NEGATIVE. Physical Examination Vital Signs Vitals: Vitals : VITAL SIGNS SECTION 10/22/2024 19:50 EST Systolic Blood Pressure 148 mm Hg H Diastolic Blood Pressure 95 mm Hg H 10/22/2024 19:36 EST Temperature 98.1 DegF Temperature Route Oral Pulse Rate 93 bpm H Respiratory Rate 21 br/min Systolic Blood Pressure 159 mm Hg H Diastolic Blood Pressure 99 mm Hg H Oxygen Saturation 99 % Mode of Delivery (Oxygen) Room air . Physical Examination NIH Stroke Scale Level of Consciousness for Stroke Scale : Alert Response Month/Age : Answers both questions correctly Response Open/Close Eyes : Performs both tasks correctly Best Gaze : Normal Visual : No visual loss Facial Palsy : Normal symmetrical movements Motor Function Left Arm : No drift Motor Function Right Arm : No drift Motor Function Left Leg : No drift Motor Function Right Leg : No drift Limb Ataxia : Absent Sensory : Normal; no sensory loss Best Language : No aphasia Dysarthria NIH Stroke Scale : Normal Extinction and Inattention : No abnormality NIH Stroke Scale Score : 0 Results Review General results Lab / Imaging Results Laboratory : LABORATORY 10/22/2024 19:35 EST Glucose, POC 113 mg/dL H Imaging : RADIOLOGY 10/22/2024 19:[address] Head-Hyper Acute Stroke CT Head-Hyper Acute Stroke CT Angio Head Hyperacute Stroke CT Angio Head Hyperacute Stroke (In Progress) EKG Results NormalSinus rhythm Impression and Plan COMPREHENSIVE PLAN Impression: left MCA resolved stroe vs TIA with transient aphasia Possible presyncope/syncope Plan Admit for tele neurochecks per unit std ASA 325 mg now (not taking at home) and then 81mg daily Plavix 75mg after admit Rehab considered: Not needed unless new issues swallow screen once passed AHA diet with low NA+ BP control below systolic 200 unless ecg changes or TYREE then no needed for permissive HTN, after 24hr aim for SBP below 180, and long-term 6 weeks BP goal less than 130/80 check Lipid a1c TSH added for am Recc statin for goal LDL<70 MRI brain no hemant when feasible ordered for am TTE no bubble when feasible(not ordered) Thanks. pamela BULLOCK MD staff and patient and Stroke education given to patient or family work up explained to call alert staff if any new changes, pager [phone] Stroke Management TPA Considered DVT prophylaxis Sub Q heparin Antiplatelet therapy Aspirin Note * Billie Perez RN: PERFORM Event Display: Discharge/Transfer Note Hospital Authored Date: [id number] Nursing Discharge Note Entered On: 10/23/2024 13:26 EST Performed On: 10/23/2024 13:26 EST by Billie Perez RN Nursing Discharge Note 2 Discharge Time : 10/23/2024 12:30 EST Discharge Level of Care at Discharge : Home/Fdc/Foster Care Patient Left Unit Via : Wheelchair Patient Accompanied Off Unit with : Responsible adult DC Instructions Provided & Signed by Pt : Yes Patient Understands D/C Instructions : Yes Patient Instructions Discharge Signed : Yes Did Pt have Specialty Bed or Wound Vac : No Billie Perez RN - 10/23/2024 13:26 EST * Ivy Uriostegui MD: MODIFY, PERFORM Event Display: Discharge/Transfer Note Hospital Authored Date: [id number] Patient: ??DAVION QUINONES ? Age:??59 Years?Sex:??Male?:??1965?? Patient Information Discharge Location: D3B Primary Care Physician: Name Wali PEARL Admit Date/Time: 10/22/2024 19:13 Discharge Disposition Discharge Disposition: Home: No Services Discharge Diagnosis TIA (transient ischemic attack) (G45.9) Syncope (R55) Hypertension (I10) Chronic back pain (M54.9) _ Discharge Medications Aspirin (aspirin 81 mg oral tablet, chewable)??81 Milligram By Mouth Daily for 90 Days Clopidogrel (Plavix 75 mg oral tablet)??75 Milligram By Mouth Daily for 21 Days Gabapentin (gabapentin 300 mg oral capsule)??See Instructions 1 capsule By Mouth Daily at bedtime for 2 weeks the increase to twice a day. Lisinopril (lisinopril 20 mg oral tablet)??20 Milligram 1 tablet By Mouth Daily Naproxen (naproxen 500 mg oral tablet)??1 tab(s) 500 Milligram By Mouth 2 times a day as needed as needed for pain for 30 Days with food PEG Electrolyte Solution (NuLYTELY Lemon Lummi oral powder for reconstitution)??240 Milliliter By Mouth Every 10 minutes ? Medications Started aspirin, plavix Medications Discontinued amlodipine Allergies Allergies ?(Active and Proposed Allergies Only) NKA? (Severity: Unknown severity, Onset: Unknown) ? PCP Follow-Up/Heads-Up Please consider obtaining echocardiogram as outpatient Future Appointments Friday 8:00 AM EST ?? With: Dez Marsh Where: [facility] [address] [place] [id number]- Status: Pending Objective Assessment and Plan 59-year-old Sudanese-speaking male with past medical history of hypertension, chronic back pain??whoBIBEMS??episode of acute onset dizziness,??dysarthria,??right-sided weakness? Possible TIA ?? Possible syncope vs presyncope ?? presented from the hospital for speech disturbances and LOC. Patient was reportedly at a [employer] when he developed dizziness, went outside and synopsized. Upon arrival to hospital, concern for speech, speaking one word at a time and possible right sided weakness. MRI brain negative, exam nonfocal feels back to baseline. NIHSS was 0??on admission Appreciate neurology recommendation Neurology recommends to continue aspirin and Plavix??for now Neurology will arrange for outpatient follow-up. ??Tele - no arrythmia Recommend Echocardiogram as outpatient with PCP ? Chronic back pain (M54.9):??Patient takes naproxen frequently??advised to??avoid Resume gabapentin ?? Hypertension (I10):??Patient is on lisinopril 20 mg, amlodipine 5 mg recently decreased due to possible orthostatic hypotension Patient is negative for orthostasis Lisinopril and amlodipine on hold On discharge will resume??lisinopril Patient was advised not to take amlodipine until he speaks with his primary care physician ? . Physical Exam GENERAL: In no apparent distress HEENT: Head normocephalic, PERRL,Moist mucous membrane. Neck supple CARDIOVASCULAR: Normal rate and rhythm, no murmurs, no rubs, no gallops RESPIRATORY: Lungs clear to auscultation, no wheezes , no crackles ABDOMEN/GI: Nondistended, soft, nontender, normal bowel sounds EXTREMITIES: No pitting edema [employer] MA[employer]GER: Alert and oriented x 3.Non focal neuro exam. ? Pending Results No Pending Results Follow-Up Appointments Added Follow Up ?Time Frame ?Comments Name Wali PEARL?1 week?pl call to schedule follow up?? Patient Instructions You came to the hospital with a complaint of sudden onset dizziness, possible??difficulty with speech??and weakness on the right side. ??You were seen by neurology. ??CT head and CTA head and neck was done did not show any new findings.?? MRI brain did not show any stroke.?? Neurology recommends you continue taking aspirin??81 mg daily,??clopidogrel 75 mg??daily for 3 weeks then stop. ??Neurologywill arrange for outpatient follow-up. We are holding your blood pressure medication today, your blood pressure is well-controlled at thistime. ??We recommend you resume lisinopril 20 mg at home.?Do not take amlodipine 5 mg until seenby primary care physician. ??Please follow-up with your primary care physician and discuss about ech ocardiogram as outpatient.?? Post Discharge Care Discharge ?10/23/24 11:56:00 EST ?Order Comment:?? Discharge Prescriptions ?ePrescribed, 10/23/24 11:56:00 EST ?Order Comment:?? Home Health Face to Face ^HomeHealthFTF Results Discharge Labs BLOOD COUNT & DIFF WBC 8.6 k/mm3 ()?? 10/23/2024 00:56 RBC 5.21 m/mm3 ()?? 10/23/2024 00:56 Hgb 13.5 Gm/dL (Low)?? 10/23/2024 00:56 Hct 42.8 % ()?? 10/23/2024 00:56 MCV 82.1 femtoliters ()?? 10/23/2024 00:56 MCH 25.9 pg (Low)?? 10/23/2024 00:56 MCHC 31.5 Gm/dL (Low)?? 10/23/2024 00:56 Platelet Count 254 k/mm3 ()?? 10/23/2024 00:56 RDW-SD 47.8 femtoliters (High)?? 10/23/2024 00:56 MPV 9.4 femtoliters ()?? 10/23/2024 00:56 Nucleated RBC (Automated) 0.0 #/100 WBC'S ()?? 10/23/2024 00:56 Abs. NRBC 0.0 k/mm3 ()?? 10/23/2024 00:56 Abs. Neut 6.7 k/mm3 ()?? 10/22/2024 20:11 Abs. Lymph 2.5 k/mm3 ()?? 10/22/2024 20:11 Abs. Coal 0.9 k/mm3 ()?? 10/22/2024 20:11 Abs. Eo 0.2 k/mm3 ()?? 10/22/2024 20:11 Abs. Baso 0.1 k/mm3 ()?? 10/22/2024 20:11 Neut % 64.3 % ()?? 10/22/2024 20:11 Lymph % 23.9 % ()?? 10/22/2024 20:11 Coal % 8.7 % ()?? 10/22/2024 20:11 Eos % 2.2 % ()?? 10/22/2024 20:11 Baso % 0.5 % ()?? 10/22/2024 20:11 Imm Gran 0.4 % ()?? 10/22/2024 20:11 Abs. Imm Gran 0.0 k/mm3 ()?? 10/22/2024 20:11 ?? CARDIAC High Sensitivity Troponin (HSTnT) <6 ng/L ()?? 10/22/2024 20:11 ? CHEM GENERAL Sodium 139 mmol/L ()?? 10/23/2024 00:56 Potassium 3.6 mmol/L ()?? 10/23/2024 00:56 Chloride 107 mmol/L ()?? 10/23/2024 00:56 Bicarbonate Level 22 mmol/L ()?? 10/23/2024 00:56 Anion Gap 10 mmol/L ()?? 10/23/2024 00:56 Glucose Level 154 mg/dL (High)?? 10/23/2024 00:56 Glucose, POC 113 mg/dL (High)?? 10/22/2024 19:35 Hemoglobin A1C (Monitoring) 6.3 % (High)?? 10/23/2024 00:56 BUN 15 mg/dL ()?? 10/23/2024 00:56 Creatinine-Blood 1.09 mg/dL ()?? 10/23/2024 00:56 Estimated GFR Creatinine 77 ML/MIN/1.73 M2 ()?? 10/23/2024 00:56 Calcium 8.7 mg/dL ()?? 10/23/2024 00:56 Protein, Total 6.3 Gm/dL ()?? 10/23/2024 00:56 Albumin 3.6 Gm/dL ()?? 10/23/2024 00:56 AG Ratio 1.3 ()?? 10/23/2024 00:56 Alkaline Phosphatase 56 units/L ()?? 10/23/2024 00:56 AST (SGOT) 22 units/L ()?? 10/23/2024 00:56 ALT (SGPT) 26 units/L ()?? 10/23/2024 00:56 Bilirubin, Total 0.2 mg/dL ()?? 10/23/2024 00:56 ? COAG INR 1.1 ()?? 10/22/2024 20:11 Protime (PT) 11.5 seconds (High)?? 10/22/2024 20:11 APTT 25.6 seconds ()?? 10/22/2024 20:11 ? ENDOCRINE/TUMOR MARKER TSH 0.84 uIU/mL ()?? 10/23/2024 00:56 ? LIPID STUDIES Cholesterol 153 mg/dL ()?? 10/23/2024 00:56 Triglycerides 78 mg/dL ()?? 10/23/2024 00:56 HDL Cholesterol 52 mg/dL ()?? 10/23/2024 00:56 LDL Cholesterol 85 mg/dL ()?? 10/23/2024 00:56 Non HDL Cholesterol 101 mg/dL ()?? 10/23/2024 00:56 ? UA/URINALYSIS Appear/Color, Urine COLORLESS ()?? 10/22/2024 22:47 Specific [place], Urine 1.030 ()?? 10/22/2024 22:47 pH, Urine 6.0 ()?? 10/22/2024 22:47 Albumin, Urine NEGATIVE ()?? 10/22/2024 22:47 Glucose, Urine NEGATIVE ()?? 10/22/2024 22:47 Ketones, Urine NEGATIVE ()?? 10/22/2024 22:47 Bilirubin, Urine NEGATIVE ()?? 10/22/2024 22:47 Hemoglobin, Urine NEGATIVE ()?? 10/22/2024 22:47 Nitrite, Urine NEGATIVE ()?? 10/22/2024 22:47 Leukocyte, Urine NEGATIVE ()?? 10/22/2024 22:47 Urobilinogen NORMAL mg/dL ()?? 10/22/2024 22:47 WBC's, Urine 1 /HPF ()?? 10/22/2024 22:47 RBC's, Urine 1 /HPF ()?? 10/22/2024 22:47 Squamous Epith <1 /HPF ()?? 10/22/2024 22:47 Hold Urine Culture Testing available 48 hours from time of collection. ()?? 10/22/2024 22:47 ? URINE OTHER Est Creatinine Clearance 80.93 mL/min ()?? 10/23/2024 04:26 ? 35_ minutes spent on discharge * Billie Perez RN: PERFORM Event Display: Patient Education/Instruction Authored Date: [id number] Inpatient Adult Discharge Instructions. [address] [address] Name: DAVION QUINONES : 1965?? Visit: 10/22/2024 19:13?? Current Date: 10/23/2024 12:05 ?? Account: [id number]?? Inpatient Adult Discharge Instructions We would like to thank you for allowing us to assist you with your healthcare needs. The following includes patient education materials and information regarding your injury/illness. Our entire staffstrives to provide an excellent experience for our patients and their families. PLEASE ENSURE YOU FOLLOW-UP PER THE INSTRUCTIONS BELOW! ?? YOUR OPINION IS IMPORTANT TO US! Please complete the survey you may receive by mail or email. Your feedback will be used to make improvements to the healthcare experiences of our patients and their families. Surveys are administered by [employer] ?? If further treatment with your primary care physician or another doctor is recommended, it is important for you to keep the appointment. Call your primary care physician or return to the Emergency Department immediately if your condition worsens, fails to improve, or new symptoms develop. If you need to find a doctor, you can call [facility] for a referral at [phone] or toll free at [phone] or log in to [email or web address].. ?? [facility], in keeping with [facility] guidance, no longer requires face masks for staff, patientsor visitors in most situations. Similiar to time spent indoors at other locations, there is the chance that you were exposed to repiratory viruses during your time with us (such as flu or COVID-19). If you develop symptoms concerning for a viral respiratory infection, please seek testing (and treatment if indicated) from your medical provider or home test kit. ?? You can view and manage your care through the patient portal or by using a health care kailyn of your choosing. [employer] is a website that allows you to securely view your medical information including your hospital discharge summary, office visit summaries, medications and follow-up visits. You can also request appointments, renew medications, and request access to your medical information using a health care kailyn of your choosing, or just ask a question. You can enroll at [email or web address] or register during your next office visit. You have been discharged from [facility], Patient Care Unit: D3B??. If you have any questions regarding these instructions, including results of studies pending, afteryou leave, please call us and we will be happy to assist you 07/04. [facility] Your Care Team Attending Physician Ivy Uriostegui MD?? Consulting Providers Ivy Uriostegui MD?? 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 Speaking one word at a time..?? Your Diagnosis Chronic back pain Hypertension Syncope Tests Performed Below is a partial list of the tests performed during your hospitalization. You may have had other tests and procedures not included in this list. Please discuss all test results with your provider. AST Basic Metabolic Panel CBC CBC w/ Differential Comprehensive Metabolic Panel GLUCOSE POC Hemoglobin A1c, (Diagnostic) High??Sensitivity??Troponin T Lipid Panel PT (INR) PTT TSH Urinalysis w/hold for Urine Culture CT Angio Head Hyperacute Stroke CT Angio Neck Hyperacute Stroke CT Head-Hyper Acute Stroke MRI Brain W/O Contrast XR Chest 2 Views Frontal and Lat AST?? Basic Metabolic Panel?? CBC?? CBC w/ Differential?? CT Angio Head Hyperacute Stroke?? CT Angio Neck Hyperacute Stroke?? CT Head-Hyper Acute Stroke?? Comprehensive Metabolic Panel?? Glucose POC?? Hemoglobin A1C (Monitoring) (Hemoglobin A1c, (Diagnostic))?? High??Sensitivity??Troponin T?? INR (PT (INR))?? Lipid Panel?? MRI Brain W/O Contrast?? PTT?? TSH?? Urinalysis w/hold for Urine Culture?? Chest 2 Views Frontal and Lat (XR Chest 2 Views Frontal and Lat)?? Primary Care Provider Name Wali PEARL? Advance Directive Health Care Proxy on File No Patient refuses to discuss Discharge Vitals Temperature: 97.7 DegF Height: 186 cm Pulse Rate: 69 bpm Weight: 80.4 kg Respiratory Rate: 18 br/min Body Mass Index: 23.24 kg/m2 Systolic Blood Pressure: 135 mm Hg Body surface area: 2.04 Diastolic Blood Pressure: 81 mm Hg ?? Oxygen Saturation: 100 % ?? Studies Pending All studies ordered during this hospital stay have been completed unless listed below. Please discuss all pending results with your provider listed above in these instructions. ?? No incomplete studies found?? What to do next Instructions From Your Doctor You came to the hospital with a complaint of sudden onset dizziness, possible??difficulty with speech??and weakness on the right side. ??You were seen by neurology. ??CT head and CTA head and neck was done did not show any new findings.?? MRI brain did not show any stroke.?? Neurology recommends you continue taking aspirin??81 mg daily,??clopidogrel 75 mg??daily for 3 weeks then stop. ??Neurologywill arrange for outpatient follow-up. We are holding your blood pressure medication today, your blood pressure is well-controlled at thistime. ??We recommend you resume lisinopril 20 mg at home.?Do not take amlodipine 5 mg until seenby primary care physician. ??Please follow-up with your primary care physician and discuss about ech ocardiogram as outpatient.? Orders? 10/23/24 11:56:00 EST?? Prescriptions??, ??10/23/24 11:56:00 EST?? Scheduled Follow-Up Appointments Friday 8:00 AM EST ?? With: Dez Marsh Where: [facility] [address] [place] [id number]- Status: Pending You Need to Schedule the Following Appointments Follow Up with??Name Wali PEARL When:??Within 1 week Why: pl call to schedule follow up?? Where: ?? Discharge Medications DAVION QUINONES :1965 Visit Date:10/22/2024 Medications: Please continue your medications until treatment is completed or stopped by your provider. Medications not listed below should be discontinued. Discuss any questions related to medications with your provider. What How Much When Instructions Next Dose New Aspirin (aspirin 81 mg oral tablet, chewable) 81 Milligram Oral Daily Duration: 90 Days Pickup at [facility]/pharmacy #[id number] 05/24 tomorrow morning New Clopidogrel (Plavix 75 mg oral tablet) 75 Milligram Oral Daily Duration: 21 Days Pickup at [facility]/pharmacy #[id number] 05/24 tomorrow morning Unchanged Gabapentin (gabapentin 300 mg oral capsule) See instructions 1 capsule By Mouth Daily at bedtime for 2 weeks the increase to twice a day. ?? as directed Unchanged Lisinopril (lisinopril 20 mg oral tablet) 1 tab(s) Oral Daily 05/24 tomorrow morning Unchanged Naproxen (naproxen 500 mg oral tablet) 1 tab(s) Oral Twice a day as needed for as needed for pain Duration: 30 Days with food ?? as directed Unchanged PEG Electrolyte Solution (NuLYTELY Lemon Lummi oral powder for reconstitution) 240 Milliliter Oral Every 10 minutes as directed Pharmacy Information [facility]/pharmacy #[id number]: [address], [place] [phone] ?? What How Much When Comments Stop Taking Amlodipine (amLODIPine 5 mg oral tablet) 1 tab(s) Oral Daily stop Prescription Given During Visit Aspirin (aspirin 81 mg oral tablet, chewable) - 81 mg, By Mouth, Daily, # 90 tablet, 0 Refills, [id number], [address] [place] [phone]?? Clopidogrel (Plavix 75 mg oral tablet) - 75 mg, By Mouth, Daily, # 21 tablet, 0 Refills, [facility]/pharmacy #[id number], [address] [place] [address] [phone]?? Laboratory Results Below is a partial list of the most recent Laboratory test results done prior to this discharge. You may have had other tests and procedures not included in this list. Please discuss all test resultswith your provider. Est Creatinine Clearance - 80.93 mL/min (10/23/2024) AST (10/22/2024) ???AST (SGOT) - 25 units/L Basic Metabolic Panel (10/22/2024) ???Sodium - 136 mmol/L???Potassium - 3.8 mmol/L???Chloride - 101 mmol/L???Bicarbonate Level - 26 mmol/L???Anion Gap - 9 mmol/L???Glucose Level - 114 mg/dL???BUN - 16 mg/dL???Creatinine-Blood - 1.12 mg/dL???Estimated GFR Creatinine - 75 ML/MIN/1.73 M2???Calcium - 9.1 mg/dL CBC (10/23/2024) ???WBC - 8.6 k/mm3???RBC - 5.21 m/mm3???Hgb - 13.5 Gm/dL???Hct - 42.8 %???MCV - 82.1 femtoliters???MCH - 25.9 pg???MCHC - 31.5 Gm/dL???Platelet Count - 254 k/mm3???RDW-SD - 47.8 femtoliters???MPV - 9.4 femtoliters???Nucleated RBC (Automated) - 0.0 #/100 WBC'S???Abs. NRBC - 0.0 k/mm3 CBC w/ Differential (10/22/2024) ???WBC - 10.5 k/mm3???RBC - 5.45 m/mm3???Hgb - 14.4 Gm/dL???Hct - 44.1 %???MCV - 80.9 femtoliters???MCH - 26.4 pg???MCHC - 32.7 Gm/dL???Platelet Count - 255 k/mm3???RDW-SD - 46.3 femtoliters???MPV - 9.4 femtoliters???Nucleated RBC (Automated) - 0.0 #/100 WBC'S???Abs. NRBC - 0.0 k/mm3???Abs. Neut - 6.7 k/mm3???Abs. Lymph - 2.5 k/mm3???Abs. Coal - 0.9 k/mm3???Abs. Eo - 0.2 k/mm3???Abs. Baso - 0.1 k/mm3???Neut % - 64.3 %???Lymph % - 23.9 %???Coal % - 8.7 %???Eos % - 2.2 %???Baso % - 0.5 %???Imm Gran - 0.4 %???Abs. Imm Gran - 0.0 k/mm3 Comprehensive Metabolic Panel (10/23/2024) ???Sodium - 139 mmol/L???Potassium - 3.6 mmol/L???Chloride - 107 mmol/L???Bicarbonate Level - 22 mmol/L???Anion Gap - 10 mmol/L???Glucose Level - 154 mg/dL???BUN - 15 mg/dL???Creatinine-Blood - 1.09 mg/dL???Estimated GFR Creatinine - 77 ML/MIN/1.73 M2???Calcium - 8.7 mg/dL???Protein, Total - 6.3 Gm/ dL???Albumin - 3.6 Gm/dL???AG Ratio - 1.3???Alkaline Phosphatase - 56 units/L???AST (SGOT) - 22 units/L???ALT (SGPT) - 26 units/L???Bilirubin, Total - 0.2 mg/dL GLUCOSE POC (10/22/2024) ???Glucose, POC - 113 mg/dL Hemoglobin A1c, (Diagnostic) (10/23/2024) ???Hemoglobin A1C (Monitoring) - 6.3 % High??Sensitivity??Troponin T (10/22/2024) ? ?High Sensitivity Troponin (HSTnT) - <6 ng/L Lipid Panel (10/23/2024) ???Cholesterol - 153 mg/dL???Triglycerides - 78 mg/dL???HDL Cholesterol - 52 mg/dL???LDL Cholesterol - 85 mg/dL???Non HDL Cholesterol - 101 mg/dL PT (INR) (10/22/2024) ???INR - 1.1???Protime (PT) - 11.5 seconds PTT (10/22/2024) ???APTT - 25.6 seconds TSH (10/23/2024) ???TSH - 0.84 uIU/mL Urinalysis w/hold for Urine Culture (10/22/2024) ???Appear/Color, Urine - COLORLESS???Specific [place], Urine - 1.030???pH, Urine - 6.0???Albumin, Urine - NEGATIVE???Glucose, Urine - NEGATIVE???Ketones, Urine - NEGATIVE???Bilirubin, Urine - NEGATIVE???Hemoglobin, Urine - NEGATIVE???Nitrite, Urine - NEGATIVE???Leukocyte, Urine - NEGATIVE???Urobilinogen - NORMAL? ?WBC's, Urine - 1 /HPF? ?RBC's, Urine - 1 /HPF? ?Squamous Epith - <1 /HPF? ?Hold Urine Culture - Testing available 48 hours from time of collection. You will be contacted within 72 hours with your results. Allergies (NKA means No Known Allergies) NKA Problems Active Problems??(11) Family history of cardiovascular disease (mom)?? Family history of depression (mom)?? Family History of Diabetes Mellitus (mom)?? Family history of hypertension (mom, dad, sister)?? Family history of lung cancer (maternal aunt)?? H/O vertigo?? Hypertension?? Lumbar disc herniation s/p surgery?? Osteoarthritis of back?? Positive PPD?? Vitamin D Deficiency?? Education Materials Below is the list of Educational Leaflet Providered with your Discharge Instructions. Valuables and Belongings I fully understand and agree that [facility] accepts no responsibility for all my personal property including clothing, toilet articles, radios, jewelry, dentures, hearing aids, rings, money, or any other property that is in my possession or is brought to me after admission. I understand certain valuables may be placed in a hospital safe for a short period of time. I understand that the hospital is not liable for loss or damage due to accident, fire, or other natural occurrence while said property is in the safe. I accept full responsibility for any personal property that I keep with me, and will not hold the hospital responsible in case of loss or disappearance. I acknowledge that i have been encouraged to send valuables and belongings home. ?? Review of Valuable and Belonging List: With patient, With family Date for Pt to Sign Valuables/Belongings: 10/22/24 22:47:00 ?? Other Discharge Information ? Pulmonary Rehab Status?? Pulmonary Rehab Discharge Status?? Respiratory Rate: 18 br/min ? Common Emergency Awareness Tips IS IT A STROKE? Act FAST and Check for these signs: FACE Does the face look uneven? ARM Does one arm drift down? SPEECH Does their speech sound strange? TIME Call at any sign of stroke ?? Heart Attack Signs Chest discomfort: Most heart attacks involve discomfort in the center of the chest and lasts more than a few minutes, or goes away and comes back. It can feel like uncomfortable pressure, squeezing, fullness or pain. Discomfort in upper body: Symptoms can include pain or discomfort in one or both arms, back, neck, jaw or stomach. Shortness of breath: With or without discomfort. Other signs: Breaking out in a cold sweat, nausea, or lightheaded. Remember, MINUTES DO MATTER. If you experience any of these heart attack warning signs, call to get immediate medical attention! ?? Smoking can increase your chances of developing chronic health problems and can cause harmful effects to other family members in your house. If you smoke, you are strongly encouraged to quit. Please call [facility] [employer] [facility] at [phone] or [phone] ([phone]) or log in to [email or web address] for referrals to smoking cessation programs. ?? 144 Suicide & Crisis Lifeline is available 07/04 if you or someone you know needs to find a reason to keep living. By calling 126 you'll be connected to a skilled, trained counselor at a crisis center in your area. INPATIENT DISCHARGE INSTRUCTIONS SIGNATURE PAGE JONI DAVION Location:[facility] Registration Date and Time:10/22/2024 19:13 EST Primary Care Physician: Wali Magallanes MD, Attending Physician: Ivy Uriostegui MD, DAVION MCDONOUGH, have received the above patient education materials/instructions and have verbalized understanding. If ambulance or transport services are being used I further acknowledge being given a choice of service. ?? If you need to contact me, please call me at this number: . Patient/Owner Professional Engineer Name: Patient/Owner Professional Engineer Signature: Relationship to Patient: Witness Name/Signature: Date: Patient Care team information Care Team Personnel Name: Concepcion Salas RN Position: [facility] RN Member Role: Primary Care Nurse Name: Wali Magallanes MD Position: [facility] Outreach Member Role: PCP Address: [address] [place] [address] Telecom: Care Team Related Persons Name: RONALDO QUINONES Name: MISHA HURTADO Name: ISABEL LEÓN Insurance Providers Guarantor name: JANN Health Plan Information #: 1 Payer: [employer] Member Number: [id number] Policy Number: NA Group Number: [employer] Health Plan Information #: 2 Payer: [facility]/ONE CARE Member Number: [id number] Policy Number: NA Group Number:
--- OUTSIDE RECORDS SUMMARY | 2024-10-29 14:01 | XMS_ITS | Encounter Summary ---
Author Organization [employer] Address [address] [facility] 7[address] [place] [address] Care Team Providers Care Circle Shear Operator Name Role Phone Name, Wali PEARL Primary Care Provider [phone] Reason for Visit * Reason Onset Date Comments Nurse Triage 10/05/2024 Encounter Details Date Type Department Care Team ([facility] st Contact Info) Description 10/05/2024 Telephone [facility] MEDICINE [address] [place] [address] Name, MD Wali [address] [place], [place] [phone] Nurse Triage Social History Tobacco Use Types [...] encounter Miscellaneous Notes * Telephone Encounter - Diamond Portillo RN - 10/05/2024 3:52 PM EST T/C to pt and re: triage. Pt requests that his interpret for him not one of [facility] staff. Ptstates that he has been having left should pains for many years now but for the past 2 weeks the pain has been worsening. Pt states that he takes ibuprofen with no relief. RN offers pt appointment with providers other than PCP to which pt states taht he would only be willing to see PCP Dr. Magallanes. RNinforms pt that there are currently no opening with Dr. Magallanes for the next month but pt can always call and ask if there are cancellations, or if the pain becomes unbearable pt can always come to walk-in clinic. Pt expresses understanding and states again that he would like to only see Dr. Magallanes. Will forward to PCP as FYI * Telephone Encounter - Ashwin Boyce - 10/05/2024 1:19 PM EST Symptom: Shoulder Pain - Not From Injury Outcome: Schedule an urgent appointment (within 1 hour) or talk to a nurse or provider soon Reason: Severe pain now The caller accepted this outcome. Contact pt Spouse at [phone] documented in this encounter Plan of Treatment Upcoming Encounters Date Type Department Care Team (Late st Contact Info) Description 11/11/2024 10:00 AM EST Office Visit [facility] MEDICINE [address] [place] [address] Name, MD [facility] [place] [address] 12/02/2024 9:15 AM EDT Office Visit [facility] [place] [address] Name, [place] [address] documented as of this encounter Visit Diagnoses Not on filedocumented in this encounter Additional Health Concerns Assessment Noted Time PHQ-9 Depression Total Score: 0 11/10/19 24 10:14 AM EST documented as of this encounter Care Teams Circle Shear Operator Relationship Specialty Start Date End [place] [address] PCP - General Family Medicine 12/21/15 documented as of this encounter
--- OUTSIDE RECORDS SUMMARY | 2024-10-29 14:01 | XMS_ITS | Encounter Summary ---
Author Organization [employer] Address [address] [facility] [address] [place] [address] Care Team Providers Care Consulting Utility Forester Name Role Phone Name, Wali PEARL Primary Care Provider [phone] Reason for Visit * Reason Onset Date Comments ER Follow-up 10/25/2024 Encounter Details Date Type Department Care Team ([facility] st Contact Info) Description 10/25/2024 Telephone [facility] MEDICINE [address] [place] [address] Name, MD Wali [address] [place], [place] [phone] ER Follow-up Social History Tobacco Use Types Packs/Day Years [...] encounter Miscellaneous Notes * Telephone Encounter - Sangita Jones RN - 10/25/2024 11:43 AM EST TC placed to pt to schedule HDF and do status check. Pt admitted [facility] [place] 10/22/24-10/23/24 DX: TIA (transient ischemic attack), syncope, hypertension, chronic back pain. Pt reports he has pain in right buttock and right shoulder. Pt reports the pain rated at a 6/10. Pt reports it has remained the same since he was discharged. Pt denies any other symptoms. Pt reports he needs a referral for neurology. Advised to discuss at HDF visit. Pt HDF appointment booked with PCP on 11/11/24 at 10:00 AM. Advised if pain continues or increases to go to [facility] or ED for evaluation. Pt agrees to plan and denies questions or concerns at this time. [facility] records obtained and placed in medical records bin. * Telephone Encounter - Christophe Louise - 10/25/2024 9:11 AM EST Patient calling to report ED visit on : Date: 10/22/24 Hospital: [facility] Seen for: Confusion Symptomatic No Patient advised will forward to team nurse for follow up documented in this encounter Plan of Treatment Upcoming Encounters Date Type Department Care Team (Late st Contact Info) Description 11/11/2024 10:00 AM EST Office Visit [facility] MEDICINE [address] [place] [address] Name, MD Wal[facility] [place] [address] 12/02/2024 9:15 AM EDT Office Visit [facility] [place] [address] [place] [address] documented as of this encounter Visit Diagnoses Not on filedocumented in this encounter Additional Health Concerns Assessment Noted Time PHQ-9 Depression Total Score: 0 11/10/19 24 10:14 AM EST documented as of this encounter Care Teams Consulting Utility Forester Relationship Specialty Start Date End Date NameWali MD [facility] [place] [address] PCP - General Family Medicine 12/21/15 documented as of this encounter
--- OUTSIDE RECORDS SUMMARY | 2024-10-29 14:01 | XMS_ITS | Encounter Summary ---
Author Organization [employer] [facility] Address [address] [facility] 7t [place] [address] Care Team Providers Care Deputy Sheriff Building Guard Name Role Phone Name, Wali PEARL Primary Care Provider Encounter Details Date Type Department Care Team (Late st Contact Info) Description 02/17/[address] [id number] Name, MD Wali [address] [place] [id number] Social History Tobacco Use Types Packs/Day Years Used Date Smoking Tobacco: Never Passive Smoke Exposure: Never Smokeless Tobacco: Never Depression Answer Date Recorded Patient Health Questionnaire-2 Score 0 10/14/2022 Sex and Gender Information Value Date Recorded Sex Assigned at Male 07/15/2022 10:29 AM EDT Legal Sex Male 10:29 AM EDT Gender Identity Male 07/15/2022 10:29 AM EDT Sexual Orientation Choose not to disclose 2021 10:29 AM EDT COVID-19 Exposure Response Date Recorded In the last 10 days, have yo u been in contact with someone who was confirmed or suspected to have Coronavirus/COVID-19? No / Unsure 01/27/2023 3:15 PM EDT documented as of this encounter Plan of Treatment Upcoming Encounters Date Type Department Care Team (Late st Contact Info) Description 11/11/2024 10:00 AM EST Office Visit [address] [address] Name, MD Wali [address] [place] [phone] 12/02/2024 9:15 AM EDT Office Visit [facility] MEDICINE [address] [place] [address] Name, MD Wali [address] [place] [address] documented as of this encounter Procedures Procedure Name Priority Date/Time Associated Diagnosis Comments COLONOSCOPY Routine 10/25/2014 8:52 AM EST documented in this encounter Results * Hm Colonoscopy (10/25/2014 8:52 AM EST) Colonoscopy Normal Normal Narrative Amparo, Yasmeen - 10/25/2014 8:52 AM EST Recommended 10 year follow up Historical Provider HEALTH MAINTENANCE Final Result documented in this encounter Visit Diagnoses Not on filedocumented in this encounter Care Teams Deputy Sheriff Building Guard Relationship Specialty Start Date End Date Name, [place] [address] PCP - General Family Medicine 12/21/15 documented as of this encounter
--- OUTSIDE RECORDS SUMMARY | 2024-10-29 14:01 | XMS_ITS | Clinical Summary ---
Author Organization [employer] Address [address] [facility] 7t [place] [address] Care Team Providers Care Director Communications Name Role Phone Name, Wali PEARL Primary Care Provider [phone] Allergies No known active allergies Medications Blood Pressure Monitoring (Omron 3 Series BP Monitor) device USE TO CHECK BLOOD PRESSURE TWICE DAILY 11/01/19 22 Active gabapentin (Neurontin) 300 MG capsule Take 1 capsule by mouth 3 times daily. 01/13/20 15 Active lidocaine (Xylocaine) 5 % ointment Apply topically 2 times daily. In left knee 50 g 1 01/28/20 23 Active Diclofenac Sodium 1 % gel Apply twice a day on the affected areas 100 g 2 10/02/19 24 Active cyclobenzaprine (Flexeril) 10 MG tabletIndicatio ns:Left-sided low back pain without sciatica, unspecified chronicity Take 1 tablet (10 mg) by mouth if needed in the morning, at noon, and at bedtime for muscle spasms (for back pain) for up to [address] with medicaion 20 tablet 01/29/20 24 Active albuterol 108 (90 Base) MCG/ACT inhalerIndicati ons:Viral upper respiratory infection Inhale 2 puffs every 6 (six) hours if needed for wheezing. 18 g 11 06/30/20 24 025 Active Spacer/Aero-Hol d Chamber Mask miscIndications :Viral upper respiratory infection Use as directed with inhaler 1 each 06/30/20 24 Active cetirizine (ZyrTEC) 10 MG tabletIndicatio ns:Viral upper respiratory infection Take 1 tablet (10 mg) by mouth Once per day. 30 tablet 5 06/30/20 24 025 Active ibuprofen 800 MG tablet TAKE 1 TABLET(800 MG) BY MOUTH THREE TIMES DAILY 90 tablet 07/28/20 24 Active ibuprofen 200 MG tablet Take 2 tablets (400 mg) by mouth every 12 (twelve) hours if needed for mild pain or moderate pain. 20 tablet 08/04/20 24 Active lisinopril 20 MG tablet Take 1 tablet (20 mg) by mouth Once per day. TAKE 1 TABLET(20 MG) BY MOUTH IN THE MORNING 30 tablet 11 08/20/20 24 025 Active amLODIPine (Norvasc) 2.5 MG tablet Take 2 tablets (5 mg) by mouth Once per day. 60 tablet 10/29/19 25 026 Active amLODIPine (Norvasc) 5 MG tablet Take 1 tablet (5 mg) by mouth Once per day. TAKE 1 TABLET(5 MG) BY MOUTH IN THE MORNING 30 tablet 08/20/20 24 025 Discontinued Active Problems Problem Noted Date Diagnosed Date Slow urinary stream 02/03/2024 Assessment & Plan (02/03/2024 9:41 AM EDT): BPH? I will order PSA and contact patient back with results and plan UTI symptoms 02/03/2024 Assessment & Plan (02/03/2024 9:41 AM EDT): Drink plenty of water, do not hold urine UA and culture ordered Patient to be contacted with culture results Left knee pain 01/27/2023 Assessment & Plan (01/27/2023 5:35 PM EDT): Chronic left knee pain but worsen in past 6 weeks Reports associated pain at night ,w locking and cracking Denies hx of trauma -advised tylenol prn up to 1gr Q 8 h ,try as well lidocaine cream/and has diclofenac cream as well and ok to take NSAIDS 400 mg ( to take 1/2 Tab of his 800 mg dose) only x mod to severe pain sporadically to avoid daily use ---explained to pt that his last chem had normal electrolytes and cr -referred today to PT a -referred today x XR to r/o OA -RTC w PCP in 4 to 6 weeks to monitor if no improvement of symptoms Herniated lumbar intervertebral disc 10/14/2022 Assessment & Plan (01/27/2023 5:38 PM EDT): Denies change in his chronic lower back pain Hx of surgery -advised to continue care w his orthopedic if any new symptoms History of colonoscopy 10/14/2022 Overview (10/14/2022): Normal at [facility] 10/2014. He was recommended to repeat in 10 years Shoulder pain 08/18/2017 Joint pain 12/21/2015 Chronic pain 04/27/2015 Overview (10/14/2022): Also goes to [facility] pain management clinic HTN (hypertension) 04/27/2015 Assessment & Plan (08/21/2023 9:30 PM EST): ?? Initial and repeat BP elevated in office, however readings overall controlled at home ?? Asymptomatic, no red flag symptoms ?? Upon further discuss w/ pt, he has been checking BP readings BEFORE taking medication for hypertension. Recommended that he check reading 1 hour AFTER taking BP medication. Reviewed proper technique for checking BP at home. ?? Plan: continue lisinopril 10mg daily, return precautions and ED precautions reviewed ?? Encouraged to continue with lifestyle interventions including low salt diet and routine physical activity. Assessment & Plan (01/27/2023 5:41 PM EDT): Here BP controlled -but pt is taking full tablet lisinopril after PCP rec to take half x previous mild elevate K+ that resolved w dose decreased Pt states he just decided to increased to full tab x no particular reason-denies having elevated Bps when was on 1/2 TAB of lisinopril -advised pt to take med as rec by PCP and to f w PCP in 4 to 6 weeks to monitor BP Spondylosis 12/27/2013 Vitamin D deficiency 10/05/2009 Resolved Problems Problem Noted Date Diagnosed Date Resolved Date Urinary tract infection symptoms 02/03/2024 02/03/2024 Encounters Date Type Department Care Team Description 10/29/2024 2:00 PM EST Office Visit [facility] [address] [place] [phone] Epistaxis (Primary Dx); Upper back pain 10/29/2024 Telephone [facility] [address] [place] [phone] Wali Magallanes MD Nurse Triage 10/25/[address] [address] Wali Magallanes MD ER Follow-up 10/05/[address] [address] Wali Magallanes MD Nurse Triage 09/17/[address] [address] Mireille Larry MA feb recalls 08/19/[address] [address] Wali Magallanes MD Med Refill 08/17/[address] [address] Wali Magallanes MD 08/15/[address] [address] Wali Magallanes MD 08/05/2024 Telephone [facility] [address] [place] [address] Yuridia Martinez MD 08/04/2024 Telephone [facility] [address] [place] [phone] Yuridia Martinez MD 08/04/[address] [address] Wali Magallanes MD Results; Medication Question 08/03/2024 9:40 AM EST Office Visit [facility] [address] [place] [phone] Yuridia Martinez MD Sore throat from Last 3 Months Immunizations Name Administration Dates Next Due Influenza injectable quadriv alent preservative free 08/08/2021,06/30/2020,10/18/2019 Influenza, IIV3, injectable 07/14/2014 Td (adult), unspecified 03/29/2013 Tdap 06/10/2018 Social History Tobacco Use Types Packs/Day Years Used Date Smoking Tobacco: Never Passive Smoke Exposure: Never Smokeless Tobacco: Never Tobacco Cessation:Counseling Given: Not Answered Alcohol Use Standard Drinks/Week Comments Never 0 (1 standard drink = 0.6 oz pur e alcohol) Depression Answer Date Recorded Patient Health Questionnaire-9 Score 0 11/10/2023 Patient Health Questionnaire-9 Score 0 11/10/2023 Last PHQ-9: Questionnaire Data Not on file 0 11/10/2023 Housing Stability Answer Date Recorded What is your housing situation today? I have coditarik velez 10/29/[address] you [...] not to disclose 2021 10:29 AM EDT Last Filed Vital Signs Vital Sign Reading Time Taken Comments Blood Pressure 148/104 10/29/2024 1:29 PM EST Pulse 99 10/29/2024 1:29 PM EST Temperature 36.6 ??C (97.8 ??F) 10/29/2024 1:29 PM ES T Respiratory Rate 16 10/29/2024 1:29 PM EST Oxygen Saturation 98% 08/03/2024 9:49 AM EST Inhaled Oxygen Concentration - - Weight 80.6 kg (177 lb 9.6 oz) 10/29/2024 1:29 P M EST Height 185.4 cm (6' 1 ) 10/29/2024 1:29 PM EST Body Mass Index 23.43 10/29/2024 1:29 PM EST Plan of Treatment Upcoming Encounters Date Type Department Care Team (Late st Contact Info) Description 11/11/2024 10:00 AM EST Office Visit [facility] [address] [place] [phone] Name, MD Wali [address] [place] [phone] 12/02/2024 9:15 AM EDT Office Visit [facility] [address] [place] [address] [phone] Name, MD Wali [address] [place] [address] Health Maintenance Due Date Last Done Comments CT Colonography 1963 FIT DNA/Cologuard 1963 FIT 1963 FOBT 1963 HIV Screening 1963 Sigmoidoscopy 1963 Alcohol/Substance Use Screening 1975 Pneumococcal Vaccine: 50+ Years (1 of 1 - PCV) 2013 Zoster Vaccines (1 of 2) 2013 COVID-19 Vaccine (3 - season) 2024 01/25/2021, 12/26/2020 Colonoscopy 10/25/2024 10/25/2014 Colorectal Cancer Screening 10/25/2024 SDOH Screening 10/29/2024 10/29/2023 Depression Screening 11/10/2024 11/10/2023, 11/10/19 24 Tobacco Screening 08/03/2025 08/03/2024 DTaP/Tdap/Td Vaccines (2 - Td or Tdap) 06/10/2028 06/10/2018, 03/29/2013 Lipid Panel 11/16/2028 11/17/2023, 09/17, 11/02/2021, Additional history exists RSV Patients and Patients Aged 60 years or older (1 - 1-dose 75+ series) 2038 Hepatitis C Screening Completed 10/28/2022 Influenza Vaccine Completed 08/15/2024, , 06/30/2020, Additional history exists HIB Vaccines Aged Out No longer eligi ble based on patient's age to complete this topic HPV Vaccines Aged Out No longer eligi ble based on patient's age to complete this topic Hepatitis A Vaccines Aged Out No long er eligible based on patient's age to complete this topic Hepatitis B Vaccines Aged Out No long er eligible based on patient's age to complete this topic IPV Vaccines Aged Out No longer eligi ble based on patient's age to complete this topic Meningococcal Vaccine Aged Out No el felicita eligible based on patient's age to complete this topic RSV under 20 months Aged Out No longe r eligible based on patient's age to complete this topic Rotavirus Vaccines Aged Out No longer eligible based on patient's age to complete this topic Procedures Procedure Name Priority Date/Time Associated Diagnosis Comments POCT INFLUENZA B Routine 08/03/2024 10:2 7 AM EST Sore throat POCT RAPID STREP A Routine 08/03/2024 10 :26 AM EST Sore throat POCT INFLUENZA A Routine 08/03/2024 10:2 6 AM EST Sore throat POCT RAPID COVID ANTIGEN Routine 08/03/2024 10:23 AM EST Sore throat CULTURE, THROAT Routine 08/03/2024 12:00 AM EST LIPID PANEL, STANDARD Routine 11/17/2023 8:06 AM EST Screening for cholesterol level HEPATITIS C AB W/REFL TO HCV RNA, QN, PCR Routine 10/28/2022 8:03 AM EST Hyperkalemia Transaminitis HM COLONOSCOPY Routine 10/25/2014 8:52 AM EST from Last 3 Months or Most Recently Relevant to Health Maintenance Results * POCT Influenza B manually resulted (08/03/2024 10:27 AM EST) Rapid Influenza B Ag Negative Negative, Indeterminate QC Media Lot # [id number] Lot# Expiration Date [id number] Swab 08/03/2024 10:2 7 AM EST Yuridia Martinez MD POINT OF CARE TEST ENTER/EDIT ORDERABLES Final Result * POCT Influenza A manually resulted (08/03/2024 10:26 AM EST) [facility] Rapid Influenza A Ag Negative Negative, Indeterminate QC Media Lot # [id number] Lot# Expiration Date [id number] Swab Nasopharyngeal structure / Unknown 08/03/2024 10:26 AM EST Yuridia Martinez MD POINT OF CARE TEST ENTER/EDIT ORDERABLES Final Result * POCT rapid strep A manually resulted (08/03/2024 10:26 AM EST) [facility] Rapid Strep A Screen Negative Negative, None Detected QC Media Lot # [id number] Lot# Expiration Date [id number] Swab 08/03/2024 10:2 6 AM EST Result [facility] Yuridia Martinez MD POINT OF CARE TEST ENTER/EDIT ORDERABLES Final Result * POCT Rapid COVID Ag (08/03/2024 10:23 AM EST) [facility] Rapid COVID Ag Negative QC Media Lot # [id number] Lot# Expiration Date [id number] Swab 08/03/2024 10:2 3 AM EST Yuridia Martinez MD POINT OF CARE TEST ENTER/EDIT ORDERABLES Final Result * Culture, Throat (08/03/2024 12:00 AM EST) Throat Structure of anterior portion of neck / Unknown 08/03/2024 08/03/2024 Comment:Throat Narrative [facility] - 08/05/2024 10:45 AM EST Throat Culture No Group A Beta-hemolytic Streptococci isolated. Specimen Source: Throat Yuridia Martinez MD LAB MICROBIOLOGY - GENERAL OR DERABLES Final Result Performing Organization Address [facility] Co de Phone Number [facility] [address] [place] [phone] * (ABNORMAL) Lipid Panel, Standard (11/17/2023 8:06 AM EST) Triglycerides 64 <150 mg/dL [facility] Comment:Desirable Triglyceri de: less than 150 mg/dLBorderline High Triglyceride 150-199 mg/dLHigh Triglyceride: 200-499 mg/dLVery High Triglyceride: greater than or equal to 5OO mg/dL Cholesterol 174 <200 mg/dL [facility] Comment:Desirable Cholestero l: less than 200 mg/dLBorderline High Cholesterol: 200-239 mg/dLHigh Cholesterol: greater than 239 mg/dL LDL Cholesterol Calculated 103(H) <100 mg/dL [facility] Comment:Desirable LDL: less than 100 mg/dLNear Optimal/Above Optimal LDL: 110- 129 mg/dLBorderline High LDL: 130-159 mg/dLHigh LDL: 160-189 mg/dLVery High LDL: greater than or equal to 190 mg/dL HDL Cholesterol 59 >40 mg/dL [facility] Comment:Desirable HDL: great er than 40 mg/dL Note: This HDL assay may give artificially low results in patients with liver disease. Blood Venous blood specimen / Unknown 11/17/2023 8:06 AM EST 11/17/2023 11:25 AM EST Wali Magallanes MD LAB BLOOD ORDERABLES Final Resul t Performing Organization Address [facility]/ZIP Co de Phone Number [facility] [address] [place] [phone] * Hepatitis C Antibody with Reflex to HCV, RNA, Quantitative, Real-Time PCR (10/28/2022 8:03 AM EST) Hepatitis C Antibody NON-REACT ALEN NON-REACT ALEN [employer] [facility] Index 0.04 <1.00 [facility] Comment: HCV antibody was non-reactive. There is no laboratory evidence of HCV infection. In most cases, no further action is required. However, if recent HCV exposure is suspected, a test for HCV RNA (test code 19617) is suggested. For additional information please refer to http://education.TinyBytes/faq/KYN83y0 (This link is being provided for informational/ educational purposes only.) Blood Venous blood specimen / Unknown 10/28/2022 8:03 AM EST 10/28/2022 8:03 AM EST Narrative [facility] - 10/28/2022 10:47 PM EST FASTING:YES FASTING: YES Wali Magallanes MD LAB BLOOD ORDERABLES Final Resul t [facility] [address] [facility], [place] [address] [employer] [place] [facility] [address] [facility], ([address]) [place] [address] * Hm Colonoscopy (10/25/2014 8:52 AM EST) Colonoscopy Normal Normal Narrative Yasmeen Christensen - 10/25/2014 8:52 AM EST Recommended 10 year follow up Historical Provider HEALTH MAINTENANCE Final Result from Last 3 Months or Most Recently Relevant to Health Maintenance Insurance [facility] Care Teams Director Communications Relationship Specialty Start Date End Date Name, MD Wali [address] [place] [phone] PCP - General Family Medicine 12/21/15
--- OUTSIDE RECORDS SUMMARY | 2024-10-29 14:01 | XMS_ITS | Encounter Summary ---
Author Organization [employer] Address [address] [facility] 7t [place] [address] Care Team Providers Care Apron Worker Name Role Phone Name, Wali PEARL Primary Care Provider [phone] Reason for Visit * Reason Onset Date Comments Nurse Triage 08/22/2023 Encounter Details Date Type Department Care Team ([facility] st Contact Info) Description 08/22/2023 Telephone [facility] [address] [place] [address] Name, MD Wali [address] [place], [place] [phone] Nurse Triage Social History Tobacco Use Types Packs/Day Years Used Date Smoking Tobacco: Never Passive Smoke Exposure: Never Smokeless Tobacco: Never Alcohol Use Standard Drinks/Week Comments Never 0 (1 standard drink = 0.6 oz pur e alcohol) Housing Stability Answer Date Recorded What is your housing situation today? I have coditarik velez 07/26/[address] you li ve. Do you have problems with any of the following? None of the above 07/26/2023 Food Insecurity Answer Date Recorded Within the past 12 months, y ou worried that your food would run out before you got money to buy more: Never True 07/26/2023 Within the past 12 months,th e food you bought just didn't last and you didn't have enough money to get more: Never True 07/2023 Transportation Answer Date Recorded In the past 12 months, has l ack of transportation kept you from medical appts, meetings, work or from getting things needed for daily living? No 07/26/2023 Utilities Answer Date Recorded In the past 12 months, has t he electric, gas, oil or water company threatened to shut off services in your home? No 07/26/2023 Depression Answer Date Recorded Patient Health Questionnaire-2 Score 0 10/14/2022 Sex and Gender Information Value Date Recorded Sex Assigned at Male 07/15/2022 10:29 AM EDT Legal Sex Male 10:29 AM EDT Gender Identity Male 07/15/2022 10:29 AM EDT Sexual Orientation Choose not to disclose 2021 10:29 AM EDT documented as of this encounter Miscellaneous Notes * Telephone Encounter - Adi Rodas RN - 08/22/2023 1:27 PM EST T/C to pt. Through [employer] id - [id number] for below message, pt. Also advised to do not take lisinopril 10 mg any more. Pt. Verbally agreed and understood. * Telephone Encounter - Shira Griffiths RN - 08/22/2023 12:19 PM EST Per chart review , pt seen by Renita Rosales on 08/20 for HTN. Pt instructed to continue with same dose and follow up with PCP. Call to Davion Dao, Last night having mild headache with elevated BP of 161/100. Pt went to [facility] and [facility] and due to long wait times did not stay. Pt took another dose of lisinopril 10mg at 7:30p and then his morning dose today at 7:30a. Pt not having any sx today. Today Bp 141/94 after takingBP meds 30 minutes prior. Pt wants to have his medications adjusted as continue to be elevated withthe current dose. Pt provided education of not to take more than prescribed dose without first consulting with a provider. Pt advised of NTTS services and customer care voice consultant provider availability. Davion Dao also given contact for [employer] for furture use as well. Pt advised can seek WIC today PRN if sx dev elop but will also send message to PCP to review and see if medication regimen for HTN to be adjusted. Per pt in past was on 2 medications. Per chart review legacy note from 01/21/2022 pt was on amlodipine 10mg daily and lisinopril 40mg daily. Sent to PCP for review and further advise team nurses of POC for HTN management. Future Appointments Date Time Provider Department Center 10/02/2023 10:30 AM Wali Magallanes MD MEDICINE [facility] Protocol Used: Blood Pressure - High (Adult) Protocol-Based Disposition: See in Office or Video Visit within 2 Weeks Override (Final) Disposition: Discuss with PCP and Callback by Nurse Today Override Reason: Already seen and questions Video visit offer not recorded Positive Triage Question: * Systolic BP >= 130 OR Diastolic >= 80, and is taking BP medications * All higher-acuity triage questions were negative Care Advice Discussed: * High Blood Pressure * High Blood Pressure - Lifestyle Modifications * Reasons To Call Back - Headache, blurred vision, difficulty talking, or difficulty walking occurs - Chest pain or difficulty breathing occurs * Telephone Encounter - Maryan Phillips - 08/22/2023 11:54 AM EST Symptom: High Blood Pressure - Caller Reports Outcome: Schedule a same-day appointment or talk to a nurse or provider today Reason: pt is requesting to take 2 lisinopril (Prinivil) 10 MG tablet Instead of 1 as directed. Salvadorean Speaker documented in this encounter Plan of Treatment Upcoming Encounters Date Type Department Care Team (Late st Contact Info) Description 11/11/2024 10:00 AM EST Office Visit [address] [address] Wali Magallanes MD [address] [place] [phone] 12/02/2024 9:15 AM EDT Office Visit [address] [address] Wali Magallanes MD [address] [place] [address] documented as of this encounter Visit Diagnoses Not on filedocumented in this encounter Care Teams Apron Worker Relationship Specialty Start Date End Date Wali Magallanes MD [address] [place] [address] PCP - General Family Medicine 12/21/15 documented as of this encounter
--- OUTSIDE RECORDS SUMMARY | 2024-10-29 14:01 | XMS_ITS | Encounter Summary ---
Author Organization [employer] [facility] Address [address] [facility] 7t [place] [address] Care Team Providers Care Monkey Breeder Name Role Phone NameWali MD Primary Care Provider [phone] Encounter Details Date Type Department Care Team (Late st Contact Info) Description 09/26/2022 Orders Only [address] [address] Olimpia Thomas LPN Social History Tobacco Use Types Packs/Day Years Used Date Smoking Tobacco: Never Assessed Sex and Gender Information Value Date Recorded Sex Assigned at Male 07/15/2022 10:29 AM EDT Legal Sex Male 10:29 AM EDT Gender Identity Male 07/15/2022 10:29 AM EDT Sexual Orientation Choose not to disclose 2021 10:29 AM EDT documented as of this encounter Plan of Treatment Upcoming Encounters Date Type Department Care Team (Late st Contact Info) Description 11/11/2024 10:00 AM EST Office Visit [address] [address] Wali Magallanes MD [address] [place] [phone] 12/02/2024 9:15 AM EDT Office Visit [address] [address] Wali Magallanes MD [address] [place] [address] documented as of this encounter Visit Diagnoses Not on filedocumented in this encounter Care Teams Monkey Breeder Relationship Specialty Start Date End Date NameWali MD [address] [place] [phone] PCP - General Family Medicine 12/21/15 documented as of this encounter
--- OUTSIDE RECORDS SUMMARY | 2024-10-29 14:01 | XMS_ITS | Encounter Summary ---
Author Organization [employer] Address [address] [facility] 7t [place] [address] Care Team Providers Care Wastewater Technician Name Role Phone Name, Wali PEARL Primary Care Provider [phone] Encounter Details Date Type Department Care Team ([facility] st Contact Info) Description 09/27/2022 Telephone [facility] [address] [place], [place] [phone] Name, MD Wali [address] [place], [place] [phone] Social History Tobacco Use Types Packs/Day Years Used Date Smoking Tobacco: Never Assessed Depression Answer Date Recorded Patient Health Questionnaire-9 [...] suspected to have Coronavirus/COVID-19? No / Unsure 02/26/2023 1:53 PM EDT documented as of this encounter Plan of Treatment Upcoming Encounters Date Type Department Care Team (Late st Contact Info) Description 11/11/2024 10:00 AM EST Office Visit [address] [address] Name, MD Wali [address] [place] [phone] 12/02/2024 9:15 AM EDT Office Visit [address] [address] Name, MD Wali [address] [place] [phone] documented as of this encounter Visit Diagnoses Not on filedocumented in this encounter Care Teams Wastewater Technician Relationship Specialty Start Date End Date Name, MD Wali [address] [place] [phone] PCP - General Family Medicine 12/21/15 documented as of this encounter
--- OUTSIDE RECORDS SUMMARY | 2024-10-29 14:01 | XMS_ITS | Clinical Summary ---
Author Organization [facility] ity Address [address] [place] [address] Care Team Providers Care Vice President Of Product Marketing Name Role Phone Unavailable Primary Care Provider Unavailabl e Medical History Medical History Date Comments Unspecified essential hypertension DX:Unspecified essential hypertension Family History Medical History Relation Name Comments Cataracts Mother Glaucoma Mother Blindness Neg Hx Macular degeneration Neg Hx Strabismus Neg Hx Relation Name Status Comments Mother Social History Tobacco Use Types Packs/Day Years Used Date Smoking Tobacco: Never Alcohol Use Standard Drinks/Week Comments Not Asked 0 (1 standard drink = 0.6 oz pur e alcohol) Sex and Gender Information Value Date Recorded Sex Assigned at Not on file Legal Sex Male 12:37 PM EST Gender Identity Not on file Sexual Orientation Not on file Obstetrics History Plan of Treatment Health Maintenance Due Date Last Done Comments DTaP,Tdap,and Td Vaccines (1 - Tdap) 1982 Pneumococcal Vaccine: 50+ Ye ars (1 of 1 - PCV) 2013 Zoster Vaccines (1 of 2) 2013 COVID-19 Vaccine ( - 2023-2 5 season) 2024 Influenza Vaccine (#1) 2024 RSV Immunization Patients 60 + Years Old (1 - 1-dose 75+ series) 2038 HIB Vaccines Aged Out No longer eligi [...] on patient's age to complete this topic MMR Vaccines Aged Out No longer eligi ble based on patient's age to complete this topic Meningococcal ACWY Vaccine Aged Out N o longer eligible based on patient's age to complete this topic Meningococcal B Vacine Aged Out No lo nger eligible based on patient's age to complete this topic Pneumococcal Vaccine: Pediat rics (0 to 5 Years) and At-Risk Patients (6 to 64 Years) Aged Out No longer eligible b ased on patient's age to complete this topic RSV Immunization Patients Un bill 20 months Aged Out No longer eligible b ased on patient's age to complete this topic Varicella Vaccines Aged Out No longer eligible based on patient's age to complete this topic
--- OUTSIDE RECORDS SUMMARY | 2024-10-29 14:01 | XMS_ITS | Encounter Summary ---
Author Organization [facility] Address [address] [facility] 7t [place] [address] Care Team Providers Care Sales Representative Supervisor Name Role Phone Name, Wali PEARL Primary Care Provider [phone] Reason for Visit * Reason Comments Med Refill Encounter Details Date Type Department Care Team ([facility] st Contact Info) Description 08/17/2024 Refill [facility] [address] [place] [address] Name, MD Wali [address] [place], [place] [phone] Social History Tobacco Use Types Packs/Day Years [...] Description 11/11/2024 10:00 AM EST Office Visit [address] [address] Wali Magallaens MD [address] [place] [address] 12/02/2024 9:15 AM EDT Office Visit [address] [address] Wali Magallanes MD [address] [place] [address] documented as of this encounter Visit Diagnoses Not on filedocumented in this encounter Additional Health Concerns Assessment Noted Time PHQ-9 Depression Total Score: 0 11/10/19 24 10:14 AM EST documented as of this encounter Care Teams Sales Representative Supervisor Relationship Specialty Start Date End Date Wali Magallanes MD [address] [place] [address] PCP - General Family Medicine 12/21/15 documented as of this encounter
--- OUTSIDE RECORDS SUMMARY | 2024-10-29 14:01 | XMS_ITS | Encounter Summary ---
Author Organization [employer] [facility] Address 75 [facility] 7t [place] [address] Care Team Providers Care .Net Developer Name Role Phone Name, Wali PEARL Primary Care Provider [phone] Reason for Referral * Consultation (Routine) - Pending Review Specialty Diagnoses / Procedures Referred By Hortensia reynoso Referred To Contact Physical Therapy Diagnoses Upper back pain Estella Jennings FNP [address] [place] [address] Phone: tel: fax: Referral ID Status Reason Start Date Expiration Date Visits Requested Visits Authorized [id number] Pending Review Consult and Treat 10/29/2024 10/29/2025 1 1 Scheduling Instructions Refer for Upper back pain - please eval Reason for Visit * Reason Comments Epistaxis (Nose Bleed) Encounter Details Date Type Department Care Team ([facility] st Contact Info) Description 10/29/2024 2:00 PM EST Office Visit [facility] [address] [place], [place] [phone] Epistaxis (Primary Dx); Upper back pain Social History Tobacco Use Types Packs/Day Years [...] AM EDT documented as of this encounter Last Filed Vital Signs Vital Sign Reading Time Taken Comments Blood Pressure 148/104 10/29/2024 1:29 PM EST Pulse 99 10/29/2024 1:29 PM EST Temperature 36.6 ??C (97.8 ??F) 10/29/2024 1:29 PM ES T Respiratory Rate 16 10/29/2024 1:29 PM EST Oxygen Saturation - - Inhaled Oxygen Concentration - - Weight 80.6 kg (177 lb 9.6 oz) 10/29/2024 1:29 P M EST Height 185.4 cm (6' 1 ) 10/29/2024 1:29 PM EST Body Mass Index 23.43 10/29/2024 1:29 PM EST documented in this encounter Plan of Treatment Upcoming Encounters Date Type Department Care Team (Late st Contact Info) Description 11/11/2024 10:00 AM EST Office Visit [facility] [address] [place] [address] Name, MD Wali [address] [place] [address] 12/02/2024 9:15 AM EDT Office Visit [facility] [address] [facility] [place] [address] Name, MD Wali [address] [place] [address] Scheduled Orders Name Type Priority Associated Diagnoses Orde r Schedule Prothrombin Time-INR Lab Routine Epistaxis Expected: 10/29/2024 (Approximate), Expires: 10/29/2025 CBC auto differential Lab Routine Epistaxis Ordered: 10/29/2024 Scheduled Referrals Name Type Priority Associated Diagnoses Orde r Schedule Referral to Physical Therapy Outpatient Referral Routine Upper back pain Expected: 10/29/2024 (Approximate), Expires: 10/29/2025 documented as of this encounter Visit Diagnoses Diagnosis Epistaxis- Primary Upper back pain Unspecified backache documented in this encounter Additional Health Concerns Assessment Noted Time PHQ-9 Depression Total Score: 0 11/10/19 24 10:14 AM EST documented as of this encounter Care Teams .Net Developer Relationship Specialty Start Date End Date Name, [place] [address] PCP - General Family Medicine 12/21/15 documented as of this encounter
--- OUTSIDE RECORDS SUMMARY | 2024-10-29 14:01 | XMS_ITS | Encounter Summary ---
Author Organization [employer] [facility] Address 75 [facility] 7t [place] [address] Care Team Providers Care Fur Feeder Name Role Phone Name, Wali PEARL Primary Care Provider [phone] Reason for Visit * Reason Comments Med Refill Encounter Details Date Type Department Care Team (Late st Contact Info) Description 02/06/2023 Refill [facility] MEDICINE [address] [place] [phone] Name, MD Wali [address] [place] [phone] Social History Tobacco Use Types Packs/Day Years [...] Description 11/11/2024 10:00 AM EST Office Visit [address] [phone] Name, MD Wali [address] [place] [phone] 12/02/2024 9:15 AM EDT Office Visit [facility] [address] [place] [address] Name, MD Wali [address] [place] [address] documented as of this encounter Visit Diagnoses Not on filedocumented in this encounter Care Teams Fur Feeder Relationship Specialty Start Date End Date Name, MD Wali [address] [place] [address] PCP - General Family Medicine 12/21/15 documented as of this encounter
--- OUTSIDE RECORDS SUMMARY | 2024-10-29 14:01 | XMS_ITS | Encounter Summary ---
Author Organization [employer] [facility] Address [address] [facility] 7t [place] [address] Care Team Providers Care Card Lacer Name Role Phone Name, Wali PEARL Primary Care Provider [phone] Reason for Visit * Reason Onset Date Comments Results 08/04/2024 Medication Question 08/04/2024 Encounter Details Date Type Department Care Team ([facility] st Contact Info) Description 08/04/2024 Telephone [facility] MEDICINE [address] [place] [address] Name, MD Wali [address] [place] [address] Results; Medication Question Social History Tobacco Use Types Packs/Day Years [...] encounter Miscellaneous Notes * Telephone Encounter - Doris Dockery - 08/04/2024 11:55 AM EST TC from pt requesting call back regarding Results. Type of results: swab Date when done: 08/03/24 Facility: [facility] walk in Pt would like to know if medication can be prescribe. documented in this encounter Plan of Treatment Upcoming Encounters Date Type Department Care Team (Late st Contact Info) Description 11/11/2024 10:00 AM EST Office Visit [address] [address] Wali Magallanes MD [address] [place] [address] 12/02/2024 9:15 AM EDT Office Visit [address] [address] Wali Magallanes MD [address] [place] [address] documented as of this encounter Visit Diagnoses Not on filedocumented in this encounter Additional Health Concerns Assessment Noted Time PHQ-9 Depression Total Score: 0 11/10/19 10:14 AM EST documented as of this encounter Care Teams Card Lacer Relationship Specialty Start Date End Date Wali Magallanes MD [address] [place] [address] PCP - General Family Medicine 12/21/15 documented as of this encounter
[2024-10-29 16:21] LABS: MANUAL DIFF FLAG NO
[2024-10-29 16:26] LABS: Basophils Absolute Auto 0.1 X10*3/uL (0.0-0.2); Basophils Percent Auto 0.9 % (0-2); Eosinophils Absolute Auto 0.2 X10*3/uL (0.0-0.4); Eosinophils Percent Auto 2.5 % (0-4); Hemoglobin 16.4 g/dl (14.0-18.0); Imm Gran Abs Auto 0.01 X10*3/uL (0.00-0.03); Imm Gran Pct Auto 0.1 % (0.0-0.4); Lymphocytes Absolute Auto 3.3 X10*3/uL (1.2-4.9); Lymphocytes Percent Auto 43.7 % (20-40); Mean Corpuscular HGB Conc 32.2 g/dl (31.0-36.0); Mean Corpuscular Hemoglobin 26.3 pg (27.0-33.0); Mean Corpuscular Volume 81.7 fL (80.0-98.0); Mean Platelet Volume 9.3 fL (9.4-12.4); Monocytes Absolute Auto 0.8 X10*3/uL (0.1-1.2); Monocytes Percent Auto 10.5 % (2-11); Neutrophils Absolute Auto 3.2 x10*3/uL (2.0-8.3); Neutrophils Percent Auto 42.3 % (45-73); Platelet Count 319 X10*3/uL (160-400); Red Blood Count 6.24 X10*6/uL (4.60-5.80); Red Cell Distribution Width 16.4 % (11.0-16.0); White Blood Count 7.7 X10*3/uL (4.8-10.8)
[2024-10-29 16:31] LABS: Prothrombin Time 11.6 SEC (10.9-12.4)
== END 2024-10-29 13:59 | disposition home or self-care (01) ==
LOC: HO.HHCL 13:58
PROVIDERS: Visit Provider Nurse Practitioner Family
DX: R04.0 Epistaxis (principal)
CPT/HCPCS: 36415; 85025; 85610

== ENCOUNTER → 2024-11-29 14:34 | Outpatient (REF) | payer OTHER, SELFPAY ==
--- NOTE | 2024-11-29 14:38 | CA_ITS ---
Transthoracic Echocardiogram Patient (Last, First, Middle): Davion Dao, Gender: Male Date of : 1965 Age: 59 Procedure Date: 11/29/2024 Procedure Type: Transthoracic Echocardiogram Location: OP Height: 182. cm Weight: 81.65 kg BSA: 2.03 m2 Heart Rate: 95 bpm BP: 125 / 80 mmHg Clerk Supervisor: MELINDA Referring MD: Wali Magallanes MD Symptoms: TIA G45.9 Study Quality: Fair ECG Rhythm: Tachycardia Conclusions: - The left ventricular systolic function is mildly decreased. The visually estimated ejection fraction is between 45-50%. - No obvious valvular pathology seen on this study. Findings Left Ventricle Normal left ventricular cavity size. There is normal left ventricular wall thickness. The left ventricular systolic function is mildly decreased. The visually estimated ejection fraction is between 45-50%. There is no evidence of regional wall motion abnormalities. Diastolic function is normal for age. Right Ventricle Normal right ventricular cavity size. There is low normal right ventricular systolic function. Atria Both atria are normal in size. Aortic Valve There is a normal trileaflet aortic valve. There is no aortic valve stenosis. There is no aortic valve regurgitation. Mitral Valve The mitral valve appears normal. There is no mitral valve regurgitation. There is no mitral valve stenosis. Pulmonic Valve The pulmonic valve is likely normal. Tricuspid Valve There is no tricuspid valve regurgitation. Tricuspid regurgitation envelope is inadequate for calculation of right ventricular systolic pressure. Great Vessels The asc aorta and aortic arch are normal in size. Venous The inferior vena cava is normal in size and collapses greater than 50% with inspiration. Pericardium/Pleural There is no evidence of pericardial effusion. Prior Study Comparison No prior study available for comparison. Recommendations, Care & Conclusions No obvious valvular pathology seen on this study. Measurements 2D Linear Measurements IVSd: 0.91 0.6-0.9/0.6-1.0 cm LVIDd: 3.89 3.9-5.3/4.2-5.9 cm LVIDd Index: 1.92 2.4-3.2/2.2-3.1 cm/m2 LVIDs: 2.61 2.0-3.6 cm LVPWd: 1.07 0.7-1.1 cm LA Diam: 2.80 2.7-3.8/3.0-4.0 cm LAIDs Index: 1.38 1.5-2.3 cm/m2 LV Mass: 149.35 67-162/88-224 g LV Mass Index: 73.57 43-95/49-115 g/m2 LVOT Diam: 2.10 3.0+(-)1.3 cm 2D Systolic Function EF 4C: 58.00 >55% EF 2C: 49.60 >55% EF BiP: 55.20 >55% Mitral Valve MV Pk E: 0.45 MV PK A: 0.62 MV Decel Time: 185.00 E/A: 0.70 E'Lateral: 8.38 E'Medial: 4.24 E/E' Med: 10.70 E/E' Lat: 5.40 PHT: 54.00 MVA PHT: 4.07 Decel [place]: 2.46 Aortic Valve AoV Pk Raúl: 1.11 AoV Mn Raúl: 0.94 AoV VTI: 0.17 AoV Pk Grad: 5.00 Aov Mn Grad: 4.00 MAY Cont.VTI: 2.86 LVOT LVOT Pk Raúl: 0.91 LVOT Mn Raúl: 0.71 LVOT VTI: 0.14 LVOT Pk Grad: 3.00 LVOT Mn Grad: 2.00 LVOT Diam: 2.10 LVOT Area: 3.46 Diastolic Function MV Pk E: 0.45 MV Pk A: 0.62 E/A: 0.70 E'Medial: 4.24 E/E' Med: 10.70 E' Laterial: 8.38 E/E' Lat: 5.40 Right Ventricle TAPSE (mm): 11.80 TVS' Raúl: 10.00 Tricuspid Valve RA Press: 3.00 Great Vessels Aorta Sinus of Valsalva: 3.10 2.0-3.5 cm Ao Asc: 3.00 2.1-3.4 cm Ao Arch: 3.10 Pulmonary Valve PV Pk Raúl: 0.81 Peak PV Grad: 3.00 Updated in Other Vendor System with Status of Final Phoenix Ron MD electronically signed on 11/29/2024 3:58:28 PM with status of Final
--- OUTSIDE RECORDS SUMMARY | 2024-11-29 17:10 | XMS_ITS | Encounter Summary ---
Author Organization [employer] Address [address] [facility] 7t [place] [address] Care Team Providers Care Embedded Software Development Engineer Name Role Phone Name, Wali PEARL Primary Care Provider [phone] Reason for Visit * Reason Onset Date Comments Medication Question 11/22/2024 Encounter Details Date Type Department Care Team ([facility] st Contact Info) Description 11/22/2024 Telephone [facility] MEDICINE [address] [place] [address] Name, MD Wali [address] [place], [place] [phone] Medication Question Social History Tobacco Use Types Packs/Day Years Used Date Smoking Tobacco: Never Passive Smoke Exposure: Never Smokeless Tobacco: Never Alcohol Use Standard Drinks/Week Comments Never 0 (1 standard drink = 0.6 oz pur e alcohol) Depression Answer Date Recorded Patient Health Questionnaire-9 Score 7 11/11/2024 Patient Health Questionnaire-9 Score 7 11/11/2024 Last PHQ-9: Questionnaire Data Not on file 0 11/11/2024 Housing Stability Answer Date Recorded What is [...] Answer Date Recorded Patient Health Questionnaire-2 Score 1 11/11/2024 Sex and Gender Information Value Date Recorded Sex Assigned at Male 07/15/2022 10:29 AM EDT Legal Sex Male 10:29 AM EDT Gender Identity Male 07/15/2022 10:29 AM EDT Sexual Orientation Choose not to disclose 2021 10:29 AM EDT documented as of this encounter Miscellaneous Notes * Telephone Encounter - Marcela Brown RN - 11/23/2024 4:33 PM EDT Tc to pt via [employer] id: [id number] to let them know per PCP I would recommend to continue on the lisinopril, I think he can stop the amlodipine Have him call you with his BP reading at home next week . No answer, lvm to return call and ask to speak to jefferson team nurses. * Telephone Encounter - Wali Magallanes MD - 11/23/2024 3:47 PM EDT I would recommend to continue on the lisinopril I think he can stop the amlodipine Have him call you with his BP reading at home next week * Telephone Encounter - Marcela Brown RN - 11/23/2024 2:49 PM EDT Tc to pt via [employer] id: [id number] in regards to concerns of low bp ( 111/74). Pt reports when they wake up first thing in the morning they check their BP and states their systolic ranges between 111-118. Pt reports asymptomatic but becomes anxious of fear their BP may become too low. Assured pt thattheir BP is within a decent range but if they notice their BP ranges around 90/60 and less than that then they should hold their medication and call our office to let us know. Pt wants clarification if they should continue taking both of their BP medications with their systolic in that range of 111-118 when they first wake up. Informed pt we'll message the PCP to let them know and call back if wedecide to do any modifications to the plan of care. Pt reports they feel more at ease and will be expecting a phone call. Message forwarded to PCP as an FYI. * Telephone Encounter - Birgit Sanz - 11/22/2024 11:01 AM EDT Tc from pt requesting a callback as he doesn't know what medication to take in regards having low bp and not symptomatic (111/74). documented in this encounter Plan of Treatment Upcoming Encounters Date Type Department Care Team (Late st Contact Info) Description 12/02/2024 9:15 AM EDT Office Visit [facility] MEDICINE [address] [place] [address] Name, MD Wali [address] [place] [address] documented as of this encounter Visit Diagnoses Not on filedocumented in this encounter Additional Health Concerns Assessment Noted Time PHQ-9 Depression Total Score: 7 11/11/19 25 11:45 AM EST documented as of this encounter Care Teams Embedded Software Development Engineer Relationship Specialty Start Date End Date Name, MD Wali [address] [place] [address] PCP - General Family Medicine 12/21/15 documented as of this encounter
--- OUTSIDE RECORDS SUMMARY | 2024-11-29 17:10 | XMS_ITS | Encounter Summary ---
Author Organization [employer] Address [address] [facility] 7t [place] [address] Care Team Providers Care Clinic Director Name Role Phone Name, Wali PEARL Primary Care Provider [phone] Reason for Visit * Reason Onset Date Comments Nurse Triage 04/22/2024 Encounter Details Date Type Department Care Team ([facility] st Contact Info) Description 04/22/2024 Telephone [facility] MEDICINE [address] [place] [address] Name, MD Wali [address] [place], [place] [phone] Nurse Triage Social History Tobacco Use Types [...] ER precautions andreasons to call back. Reviewed [facility] operating hours and that wait times vary. [...] Description 12/02/2024 9:15 AM EDT Office Visit [facility] MED[facility]INE [address] [place] [address] Name, MD Wali [address] [place] [address] documented as of this encounter Visit Diagnoses Not on filedocumented in this encounter Additional Health Concerns Assessment Noted Time PHQ-9 Depression Total Score: 0 11/10/19 24 10:14 AM EST documented as of this encounter Care Teams Clinic Director Relationship Specialty Start Date End Date Name, MD Wali [address] [place] [address] PCP - General Family Medicine 12/21/15 documented as of this encounter
--- OUTSIDE RECORDS SUMMARY | 2024-11-29 17:10 | XMS_ITS | Encounter Summary ---
Author Organization [email or web address] [facility] Address [address] [facility] 7t [place] [address] Care Team Providers Care Elder Counselor Name Role Phone Name, Wali PEARL Primary Care Provider [phone] Encounter Details Date Type Department Care Team (Late st Contact Info) Description 09/26/2022 Orders Only [facility] MEDICINE [address] [place] [address] Olimpia Thomas LPN Social History Tobacco Use [...] Description 12/02/2024 9:15 AM EDT Office Visit [facility] [address] [place] [address] Name, MD Wali [address] [place] [address] documented as of this encounter Visit Diagnoses Not on filedocumented in this encounter Care Teams Elder Counselor Relationship Specialty Start Date End Date NameWali MD [address] [place] [address] PCP - General Family Medicine 12/21/15 documented as of this encounter
--- OUTSIDE RECORDS SUMMARY | 2024-11-29 17:10 | XMS_ITS | Continuity of Care Document ---
Author Organization [facility] Address [address] [place] [address]- Care Team Providers Care Cotton Presser Name Role Phone Name Wali PEARL Primary Care Physician [phone] [place] [facility] [place](s): 10/26/24 - 11/25/24 [facility] [address] [place] [address]- Attending Physician: Samanta Leach Admitting Physician: Samanta Leach Referring Physician: Admtr ArAnamaria Encounter Type: Triage Allergies, Adverse Reactions, Alerts No Known Allergies [...] 12:25:00 PM EST, [id number], Partial fill upon patient request if the [...] Refills, Maintenance, 01/12/15 12:41:59 PM EDT, Capsule, [id number] Start Date: 01/12/15 Status: Ordered Quantity: [...] Refills, Maintenance, 01/12/15 12:41:05 PM EDT, Tablet, [id number] Start Date: 01/12/15 Stop Date: 07/11/15 Status: Ordered Quantity: 60.0 Unit: tablet Repeat number: 6 NuLYTELY [place] oral powder for reconstitution 240 mL, By Mouth, Every 10 minutes, # 1 each, 0 Refills, Maintenance, 08/22/14 10:41:03 AM EST, REC Powder, [id number] Start Date: 08/22/14 Status: Ordered Quantity: 1.0 Unit: each Repeat number: 1 Plavix 75 mg oral tablet 75 mg, By Mouth, Daily, # 21 tablet, Refills 0, Tot. Refills 0, Maintenance, 10/23/24 12:25:00 PM EST, Route to Pharmacy Electronically, [id number], Partial fill upon patient request if the [...] Active Vitamin D Deficiency Confirmed 10/05/09 Active Social History Social History Type Response Smoking Status Never smoker entered on: 12/27/13 Sex Sex Representation Male (finding) Patient Care team information Care Team Personnel Name: Concepcion Salas RN Position: [facility] RN Member Role: Primary Care Nurse Name: Wali Magallanes MD Position: [facility] Outreach Member Role: PCP Address: [address] [place] [address] Telecom: Care Team Related Persons Name: RONALDO QUINONES Name: MISHA HURTADO Name: ISABEL LEÓN Insurance Providers Guarantor name: JANN Health Plan Information #: 1 Payer: [facility] [employer]/[facility] C[facility] Member Number: NA Policy Number: NA Group Number: NA
--- OUTSIDE RECORDS SUMMARY | 2024-11-29 17:10 | XMS_ITS | Continuity of Care Document ---
Author Organization [facility] ter Address [address] [place] [address]- Care Team Providers Care Security Escort Name Role Phone Name Wali PEARL Primary Care Physician [phone] Encounter [facility] Date(s): 11/02/24 - 11/02/[address] [address]- Encounter Diagnosis Recurrent epistaxis(Final) - 11/02/24 Discharge Disposition: A-D/C Home Attending Physician: Kristan Bonilla MD Admitting Physician: Kristan Bonilla MD Referring Physician: Not on Staff, Referring MD Encounter Type: Disch ES Allergies, Adverse Reactions, Alerts No Known Allergies [...] 12:25:00 PM EST, Route to Pharmacy Electronically, [facility] #[id number], Partial fill upon patient request if the [...] Refills, Maintenance, 01/12/15 12:41:59 PM EDT, Capsule, [facility]/pharmacy #[id number] Start Date: 01/12/15 Status: Ordered [...] Refills, Maintenance, 01/12/15 12:41:05 PM EDT, Tablet, [facility]/pharmacy #[id number] Start Date: 01/12/15 Stop Date: 07/11/15 Status: Ordered Quantity: 60.0 Unit: tablet Repeat number: 6 NuLYTELY Lemon [place] oral powder for reconstitution 240 mL, By Mouth, Every 10 minutes, # 1 each, 0 Refills, Maintenance, 08/22/14 10:41:03 AM EST, REC Powder, [facility]/pharmacy #[id number] Start Date: 08/22/14 Status: Ordered Quantity: 1.0 Unit: each Repeat number: 1 Plavix 75 mg oral tablet 75 mg, By Mouth, Daily, # 21 tablet, Refills 0, Tot. Refills 0, Maintenance, 10/23/24 12:25:00 PM EST, Route to Pharmacy Electronically, [facility] #[id number], Partial fill upon patient request if the [...] Exam Date Time Procedure Performing Provider Status 11/02/24 3:24 PM Chest 2 Views Frontal and Lat Evelio Prieto; Jelly (Verified) Notes: (Chest 2 Views Frontal and Lat) Reason For Exam: Chest Pain;Other: RESULT: Chest 2 Views Frontal and Lat Chest 2 Views Frontal and Lat Hx of Present Illness: pt had recent stroke on friday, placed on thinners, discharged and has been having nose bleeds since friday, intermittantly bleeding, currently not bleeding in triage; Reason: Other:; Chest Pain; Clinical Question(s): Other: COMPARISON: Multiple priors with the most recent dated 10/23/2024 FINDINGS: LINES AND TUBES: None. LUNGS AND PLEURA: Clear lungs. Normal pulmonary vascularity. No pleural effusion. No pneumothorax. HEART, MEDIASTINUM AND DOUG: Heart is normal in size. Normal mediastinal and hilar contour. BONES AND SOFT TISSUES: No acute abnormality. IMPRESSION: No acute abnormality. No change. WSN: [id number] Ordering Physician: Adriano Delgadillo Dictated By: Trevor Chery MD, V Dictated Date/Time: 11/02/24 3:32 pm Reviewed By: Trevor Chery MD, V Signed By: Trevor Chery MD, V Signed Date/Time: 11/02/24 3:32 pm Transcribed By: ASAD Transcribed Date/Time: 11/02/24 3:31 pm Vital Signs Most recent to oldest [Reference Range]: 1 2 3 Height 181 cm (11/02/24 6:26 PM) 181 cm (11/02/24 2:37 PM) Weight 80.4 kg (11/02/24 6:26 PM) 80.4 kg (11/02/24 2:37 PM) Oxygen Saturation [94-100 %] 99 % (11/02/24 6:26 PM) 100 % (11/02/24 2:37 PM) 100 % (11/02/24 2:33 PM) Pulse Rate [55-90 bpm] 86 bpm (11/02/24 6:26 PM) 98 bpm *H* (11/02/24 2:37 PM) 106 bpm *H* (11/02/24 2:33 PM) Body Mass Index [18.5-24.99 kg/m2] 24.54 kg/m2 (11/02/24 6:26 PM) Blood Pressure [90-138/55-84 mm Hg] 147/92mm Hg *H* (11/02/24 6:26 PM) 180/109mm Hg *H* (11/02/24 2:37 PM) Respiratory Rate [16-30 br/min] 16 br/min (11/02/24 6:26 PM) 22 br/min (11/02/24 2:37 PM) 20 br/min (11/02/24 2:33 PM) Temperature [96.8-100.4 DegF] 98.2 DegF (11/02/24 6:26 PM) 97.9 DegF (11/02/24 2:37 PM) Mode of Delivery (Oxygen) Room air (11/02/24 6:26 PM) Room air (11/02/24 2:37 PM) Room air (11/02/24 2:33 PM) Temperature Route Oral (11/02/24 6:26 PM) Oral (11/02/24 2:37 PM) Dry Weight 80.4 kg (11/02/24 6:26 PM) 80.4 kg (11/02/24 2:37 PM) Weight Obtained Via Standing scale (11/02/24 2:37 PM) Dry Weight Obtained Via Standing scale (11/02/24 2:37 PM) Social History Social History Type Response Smoking Status Never smoker entered on: 12/27/13 Sex Sex Representation Male (finding) EKG study * Event Display: ECG 12-Lead Authored Date: Please click on pdf link to open report * Event Display: ECG 12-Lead Authored Date: Ventricular Rate: 92 BPM Atrial Rate: 92 BPM P-R Interval: 148 ms QRS Duration: 88 ms Q-T Interval: 340 ms QTC Calculation(Bazett): 420 ms P Minong: 41 degrees R Minong: -36 degrees T Minong: 38 degrees Normal sinus rhythm Left axis deviation Pulmonary disease pattern Minimal voltage criteria for LVH, may be normal variant ( R in aVL ) Abnormal ECG When compared with ECG of 22-Oct-2024 19:38, No significant change Confirmed by RENATA BENAVIDES MD ([id number]) on 11/02/2024 5:59:55 PM Mcintosh: RENATA BENAVIDES MD Note * Kristan Bonilla MD: PERFORM Event Display: Patient Education Leaflets Authored Date: [id number] Oxymetazoline Nasal [place] ?? [id number] Aerosol nasal de oximetazolina Nombres comercial(es): Afrin?? Aerosol Nasal, Anefrin?? Aerosol Nasal, Dristan?? Aerosol Nasal, Mucinex?? Aerosol Nasal, Nostrilla?? Aerosol Nasal, Vicks Sinex?? Aerosol Nasal, Zicam?? Aerosol Nasal;tambi??n disponibles gen??ricamente ?PARA CU? LES condiciones o enfermedades se prescribe rebeca medicamento? La oximetazolina en aerosol nasal se usa para aliviar las molestias nasales del resfriado, las alergias y la fiebre del heno. Tambi??n se usa para aliviar la congesti??n y la presi??n de los senos paranasales. La oximetazolina en aerosol nasal no debe usarse para tratar a ni??os menores de 6 a??os,a menos que un m??dico se lo recomiende. Los ni??os de 6 a 12 a??os pueden usar la oximetazolina enaerosol nasal si lo hacen con cuidado y bajo la supervisi??n de un adulto. La oximetazolina pertenece a wade clase de medicamentos llamados descongestivos nasales. Act??a haciendo m??s angostos los vasos sangu??neos de los conductos nasales. ??C??MO se debe usar rebeca medicamento? La oximetazolina viene en forma de wade soluci??n (l??quido) que se mathieu??a dentro de la nariz. La oximetazolina viene en forma de wade soluci??n (l??quido) que se mathieu??a dentro de la nariz. Siga atentamente las instrucciones en la etiqueta del empaque o en griffiths receta m??dica y pida a griffiths m??dico o farmac??utico que le explique cualquier parte que no comprenda. Use la oximetazolina en aerosol nasal benjamin bonita se lo indiquen. No use wade cantidad mayor ni brice del medicamento, ni lo use con m??s frecuencia de lo que griffiths m??dico indica en la receta o de lo que indica la etiqueta. Si usa la oximetazolina en aerosol nasal con m??s frecuencia o por m??s tiempo de lo recomendado, griffiths congesti??n puede empeorar, o mejorar temporalmente y regresar. No use la oximetazolina en aerosolnasal por m??s de 3 d??as. Si junior s??ntomas no mejoran despu??s de 3 d??as de tratamiento, deje de aplicarse la oximetazolina y llame a griffiths m??dico. La oximetazolina en aerosol nasal se usa exclusivamente en la nariz. No trague el medicamento. Para prevenir el contagio de la infecci??n, no comparta griffiths atomizador con ninguna otra persona. Enjuague la punta del atomizador con [place] o l??mpiela despu??s de cada uso. Siga las instrucciones de uso del aerosol nasal que vienen en la etiqueta del envase. Si est?? usando un producto que viene con wade bomba dosificadora, apriete varias veces el borde antes de usar griffiths primera dosis para cargar la bomba, benjamin bonita se explica en las instrucciones de la etiqueta. Cuando est?? listo para usar el aerosol, mantenga la malorie en posici??n vertical, sin inclinarla hacia loslados, e inserte la punta del atomizador en wade fosa nasal. Para aplicar el aerosol nasal, apriete el frasco con rapidez y firmeza. Si el producto viene en wade bomba dosificadora, apriete el borde con un movimiento firme y parejo mientras inhala profundamente. ??Qu?? OTRO USO se le da a rebeca medicamento? Rebeca medicamento se puede recetar para otros usos. Pida m??s informaci??n a griffiths m??dico o farmac??utico. ??Cu??les son las PRECAUCIONES ESPECIALES que serge seguir? Antes de usar oximetazolina, ??? informe a griffiths m??dico y farmac??utico si es al??rgico a la oximetazolina o a cualquier otro medicamento. ??? informe a griffiths m??dico o farmac??utico si actualmente rosalia o recibe los siguientes medicamentos o si hillman dejado de tomarlos noy las ??ltimas dos semanas: isocarboxazida (Marplan), fenelzina ([place]), selegilina (Eldepryl, Emsam, Zelapar) y tranilcipromina (Parnate). ??? informe a griffiths m??dico y farmac??utico qu?? medicamentos con y sin receta m??dica, vitaminas, suplementos nutricionales y productos a base de hierbas rosalia o planea donny mientras usa el aerosol nasal de oximetazolina.Es posible que griffiths m??dico deba cambiar la dosis de junior medicamentos o mantenerlo bajo wade cuidadosa supervisi??n en zara de que presente efectos secundarios. ??? informe a griffiths m??dico si tiene o alguna vez hillman tenido hipertensi??n arterial, diabetes, dificultad para orinar debido a un agrandamiento de la gl??ndula prost??david o enfermedad de la tiroides o del coraz??n. ??? informe a griffiths m??dico si est?? embarazada planea quedar embarazada o est?? amamantando. Lame a griffiths m??dico, si queda embarazadamientras usa el aerosol nasal de oximetazolina. ??Qu?? DIETA ESPECIAL serge seguir mientras natalie rebeca medicamento? A menos que el m??dico le indique lo contrario, contin??e con griffiths dieta normal. ??Qu?? tengo que hacer SI ME OLVIDO de donny wade dosis? En general, rebeca medicamento se usa seg??n sea necesario. Si griffiths m??dico le indic?? aplicarse la oximetazolina con regularidad y olvida wade dosis, apl??quesela en cuanto se acuerde. [place] la dosis que olvid?? vivas pronto bonita lo recuerde; sin embargo, si es hora para la siguiente, s??ltese aquella queno nayan?? y siga con la dosificaci??n regular. No duplique wade dosis para compensar la que omiti??. ??Cu??les son los EFECTOS SECUNDARIOS que podr??a provocar rebeca medicamento? Algunos efectos secundarios pueden ser graves. Si presenta alguno de estos s??ntomas, llame a griffiths m??dico inmediatamente: ??? ritmo card??aco acelerado ??? ritmo card??aco lento El aerosol nasal de oximetazolina puede causar otros efectos secundarios. Llame a griffiths m??dico si experimenta alg??n problema inusual mientras usa rebeca medicamento. Si desarrolla un efecto secundario grave, usted o griffiths doctor puede enviar un informe al programa de divulgaci??n de efectos adversos 'MedWatch' de la Administraci??n de Alimentos y Medicamentos (FDA, por griffiths sigla en ingl??s) en la p??adelina de Internet (https://www.fda.gov/Safety/MedWatch) o por tel??fono al . ??C??mo serge ALMACENAR o DISPONER de rebeca medicamento? Mantenga rebeca medicamento en griffiths empaque original, kervin cerrado y fuera del alcance de los ni??os. Gu??rdelo a temperatura ambiente y lejos del calor excesivo, la lee y la humedad (no en el ba??o). [place] el medicamento. Los medicamentos que ya no son necesarios se deben desechar de wade manera apropiada para asegurarsede que las mascotas, los ni??os y otras personas no puedan consumirlos. Sin embargo, no debe desechar estos medicamentos por el inodoro. En griffiths lugar, la mejor manera de deshacerse de junior medicamentoses a jeanie??s de un programa de devoluci??n de medicamentos. Hable con griffiths farmac??utico o p??ngase en contacto con griffiths departamento de basura/reciclaje local para conocer acerca de los programas de devoluci??n de medicamentos de griffiths comunidad. Consulte el sitio web de la Administraci??n de Medicamentos y Alimentos (FDA), (https://goo.gl/xRXbPn) para obtener m??s informaci??n de c??mo desechar de forma arriaga los medicamentos, si no tiene acceso al programa de devoluci??n de medicamentos. Es importante que mantenga todos los medicamentos fuera de la vista y el alcance de los ni??os, debido a que muchos envases (tales bonita los pastilleros de uso semanal, y aquellos que contienen gotas oft??lmicas, cremas, parches e inhaladores) no son a prueba de ni??os racheal??os, quienes pueden abrirlos f??cilmente. Con el fin de protegerlos de wade intoxicaci??n, siempre use tapaderas de seguridade inmediatamente coloque los medicamentos en un lugar seguro, abimbola que se encuentre arriba y lejos de griffiths vista y alcance. https://www.upandaway.org/es/ ??Qu?? serge hacer en zara de wade SOBREDOSIS? Si se aplica demasiada oximetazolina en aerosol nasal o alguien ingiere el medicamento, llame a griffiths centro local de control de intoxicaciones al . Si la v??ctima hillman colapsado o no est?? respirando, llame a los servicios de emergencia locales al 911 ??Qu?? OTRA INFORMACI??N de importancia deber??a saber? H??gale a griffiths farmac??utico todas las preguntas que tenga sobre la oximetazolina en aerosol nasal. Es importante que Ud. mantenga wade lista escrita de todas las medicinas que Ud. est?? tomando, incluyendo las que recibi?? con receta m??dica y las que Ud. compr?? sin receta, incluyendo vitaminas y suplementos de dieta. Ud. debe tener la lista cada vez que visita griffiths m??dico o cuando es admitido a un hospital. Tambi??n es wade informaci??n importante en casos de emergencia. Rebeca informe sobre medicamentos es solo para griffiths informaci??n, y no se considera bonita un consejo para el paciente. Debido a la naturaleza de informaci??n sobre drogas, por favor consulte griffiths medico o farmac??utico sobre el uso cl??jose espec??fico. La Sociedad Americana de Farmac??uticos Institucionales SA., afirma que la informaci??n proporcionada a continuaci??n fue formulada con razonable est??ndar de asistencia, y en conformidad con el haile profesional. La Sociedad Americana de Farmac??uticos Institucionales, SA. no provee representaciones o garant??as, expresas o implicadas, incluyendo, carson no limitado a, cualquiera garant??a de comercializaci??n y/o apropiado para wade funci??n particular, con respecto a benjamin informaci??n y niega espec??ficamente tales garant??as. Se avisa a los usuarios que las decisiones con respecto a terapia de drogas son decisiones m??dicas complejas requiriendo decisiones independientes e informadas de un profesional de gavin y que la informaci??n se da para prop??sitos de informaci??n solamente. La entera monograf??a de wade droga debe ser revisada considerando un comprensivo entendimiento de las acciones, usos, y efectos secundarios de la droga. La Sociedad Americana de Farmac??uticos Institucionales, SA. no endosa o recomienda el uso de ninguna medicina. La informaci??n no es un sustituto de asistencia m??dica. AHFS?? Patient Medication Information???. ?? Derechos reservados, 2023. Documento actualizado 15 [id number], [place] Society of [employer]-System Pharmacists?? [address] [facility], [address], [address] Todos los derechos reservados. La duplicaci??n de rebeca documento para griffiths uso comercial, deber?? ser autorizada por ASHP. AHFS?? Patient Medication Information???. ?? Copyright, 2024 ?? * Irene PEARL, Kristan Jones: PERFORM Event Display: Patient Education Leaflets Authored Date: [id number] Epistaxis (Adult) ?? [id number] Sangrado de la nariz (adultos) Com??nmente, el sangrado de la nariz se produce debido a wade herida o a que se seca y se agrieta elrecubrimiento interno de la nariz. La mayor??a de rebeca tipo de sangrados se debe al aire seco o a hurgarse la nariz. Pueden presentarse noy un resfriado com??n o noy un ataque de alergia. Tambi??n pueden presentarse un d??a de mucho calor o debido al aire seco del invierno. La mayor??a de los sangrados nasales no son graves y se producen en la parte frontal de la nariz. Los que se producen la parte de atr??s, m??s cerca de la garganta, son menos frecuentes, carson es posible que aldair m??sdif??ciles de controlar y que aldair m??s graves. En los casos en los que el sangrado no se puede controlar, se busca el lugar de la hemorragia y se puede cauterizar. [place] significa que se lo trata para que se forme un co??gulo de robert. [place] se puede hacer con wade sustancia qu??noreen, con calor o con electricidad. Si contin??a el sangrado despu??s de la cauterizaci??n, o si no se encuentra el sitio de sangrado, es posible que se le coloque wade compresa en la nariz. [place] se hace para aplicar presi??n y detener el sangrado. Joseph compresa puede estar hecha de gasa o esponja. En ocasiones, se usa wade sonda (tubo racheal??o) con un racheal??o bal??n.Es griffiths proveedor de atenci??n m??dica quien debe quitar la compresa o la sonda. Hay tambi??n algunos tipos de compresa que se disuelven solas. En ocasiones poco frecuentes, se debe realizar wade cirug??a o wade embolizaci??n (sellado de los vasos sangu??neos de la nariz mediante un cat??ter a jeanie??s de wade arteria) para detener un sangrado nasal. Si est?? tomando medicamentos anticoagulantes, es posible que le jason un an??lisis de robert y le aconsejen que deje de donny ciertos medicamentos peres te un tiempo. Cuidados en el hogar ??? Si le colocaron wade compresa en la nariz, no jale de esta ni intente quitarla usted mismo, a menos que le hayan indicado lo contrario. Le sharath??n wade leigh para quit??rsela. Tambi??n es posible que le receten antibi??ticos para evitar wade infecci??n en la cavidad nasal. De ser as??, termine todo el medicamento. ??? Wade vez que se haya detenido el sangrado, no se suene la nariz noy las 12??horas siguientes. Eso permitir?? que se forme un co??gulo resistente de robert. Luego, si tiene que sonarse la nariz, h??janelle con justice suavidad. No se hurgue la nariz. [place] puede provocar que vuelva a sangrar. ??? Evite beber alcohol y l??quidos calientes noy los 2??d??as siguientes. La presencia de estas bebidas en la boca puede dilatar los vasos sangu??neos de la nariz. A griffiths vez, esto puede provocar que se reinicie el sangrado. ??? No tome ibuprofeno, naproxeno ni medicamentos que contengan aspirina. Estos diluyen la robert y pueden estimular el sangrado de la nariz. Puede donny paracetamol para el dolor, a menos que le hayan recetado otro calmante (analg??sico). Si sufre de alguna enfermedad hep??david cr??franklin, hable con el proveedor de atenci??n m??dica antes de donny paracetamol. ??? Si el sangrado vuelve a comenzar, si??ntese e incl??nese hacia adelante para evitar tragar la robert. Apri??tese la nariz con firmeza de los dos lados, bonita se muestra m??s arriba noy 10??a 15??minutos. T??mese el tiempo. No deje de hacer presi??n sobre la nariz hasta que hayan pasado los 10??minutos. Si el sangrado no se detiene, siga apret??ndose la nariz y llame al proveedor de atenci??n m??dica si le sale poca robert. Si el sangrado es intenso, llame al 911 o vuelva a rebeca centro de atenci??n. ??? Si tiene un resfriado, alergia o las membranas nasales est??n secas, lubrique las fosas nasales. Aplique con suavidad wade cantidad racheal??a de vaselina dentro de lanariz con un hisopo de algod??n dos veces al d??a (a la ma??mauricio y a la noche). ??? Evite calentar de masiado el ambiente en griffiths casa. [place] puede secar el aire y empeorar griffiths afecci??n. ??? Coloque un humidificador en la habitaci??n donde duerme. Le sharath?? humedad al aire. Limpie el humidificador seg??nlo recomendado por el fabricante. ??? Use un aerosol nasal salino para mantener h??medas las fosas nasales. ??? No se hurgue la nariz. Mantenga las u??as cortas para reducir el riesgo de sangrado. ??? No fume. ?? Atenci??n de seguimiento Programe wade leigh de seguimiento con el proveedor de atenci??n m??dica, o seg??n le hayan indicado.La compresa nasal se debe revisar o quitar 2??o 3??d??as despu??s de fly sido colocada. ?? Cu??ndo debe buscar atenci??n m??dica Llame al proveedor de atenci??n m??dica de inmediato ante cualquiera de las siguientes situaciones. ??? Tiene sangrados en racheal??a cantidad de forma intermitente y que se repiten y puede controlarlos por un rato ??? Fiebre de 100.4?F (38?C) o superior, o seg??n le indique el proveedor de atenci??n m??dica ??? Dolor de malorie ??? Dolor en la cavidad nasal o en la lena Cu??ndo llamar al?? 911 Llame al 911 o busque atenci??n m??dica de inmediato ante cualquiera de los siguientes s??ntomas: ??? Mareos, debilidad o desmayo ??? Falta de aire o dificultad para respirar ??? Sangrado de la narizque no puede controlar o que es muy intenso ??? Cansancio o confusi??n anormales ?? Last Reviewed Date: 2022 ?? [id number] [employer]. Todos los derechos reservados. Esta informaci??n no pretende sustituir la atenci??n m??dica profesional. S??lo griffiths m??dico puede diagnosticar y tratar un problema de gavin. ?? Patient Care team information Care Team Personnel Name: Concepcion Salas RN Position: [facility] RN Member Role: Primary Care Nurse Name: Wali Magallanes MD Position: [facility] Outreach Member Role: PCP Address: [address] [place] [address] Telecom: Care Team Related Persons Name: RONALDO QUINONES Name: HURTADO, MISHA Name: ISABEL LEÓN Insurance Providers Guarantor name: JANN Health Plan Information #: 1 Payer[facility] Member Number: [id number] Policy Number: NA Group Number: [facility] Health Plan Information #: 2 Payer: [facility] Member Number: [id number] Policy Number: NA Group Number: [id number]
--- OUTSIDE RECORDS SUMMARY | 2024-11-29 17:10 | XMS_ITS | Encounter Summary ---
Author Organization [employer] Address [address] [place] [address] Care Team Providers Care Junior Recruiter Name Role Phone Name, Wali PEARL Primary Care Provider [phone] Reason for Visit * Reason Onset Date Comments Nurse Triage 10/05/2024 Encounter Details Date Type Department Care Team ([facility] st Contact Info) Description 10/05/2024 Telephone [facility] [address] [place] [address] Name, MD Wali [address] [place], [place] [id number] Nurse Triage Social History Tobacco Use Types [...] his interpret for him not one of [facility] staff. Ptstates that he has been having [...] accepted this outcome. Contact pt Spouse at [phone] documented in this encounter Plan of Treatment Upcoming Encounters Date Type Department Care Team (Late st Contact Info) Description 12/02/2024 9:15 AM EDT Office Visit [facility] [address] [facility] [place] [address] Name, MD Wali [address] [place] [address] documented as of this encounter Visit Diagnoses Not on filedocumented in this encounter Additional Health Concerns Assessment Noted Time PHQ-9 Depression Total Score: 0 11/10/19 24 10:14 AM EST documented as of this encounter Care Teams Junior Recruiter Relationship Specialty Start Date End Date Name, [place] [address] PCP - General Family Medicine 12/21/15 documented as of this encounter
--- OUTSIDE RECORDS SUMMARY | 2024-11-29 17:10 | XMS_ITS | Encounter Summary ---
Author Organization [employer] Address 75 [facility] 7t [place] [address] Care Team Providers Care Visual Merchandising Associate Name Role Phone Name, Wali PEARL Primary Care Provider [phone] Reason for Visit * Reason Comments Med Refill Encounter Details Date Type Department Care Team ([facility] st Contact Info) Description 08/17/2024 Refill [facility] MEDICINE [address] [place] [address] Name, MD Wali [address] [place], [place] [phone] Social History Tobacco Use Types Packs/Day Years [...] Description 12/02/2024 9:15 AM EDT Office Visit [facility] MEDICINE [address] [place] [address] Name, MD Wali [address] [place] [address] documented as of this encounter Visit Diagnoses Not on filedocumented in this encounter Additional Health Concerns Assessment Noted Time PHQ-9 Depression Total Score: 0 11/10/19 24 10:14 AM EST documented as of this encounter Care Teams Visual Merchandising Associate Relationship Specialty Start Date End Date Name, MD Wali [address] [place] [address] PCP - General Family Medicine 12/21/15 documented as of this encounter
--- OUTSIDE RECORDS SUMMARY | 2024-11-29 17:10 | XMS_ITS | Encounter Summary ---
Author Organization [employer] Address 75 [facility] 7t [place] [address] Care Team Providers Care Reference Investigator Name Role Phone Name, Wali PEARL Primary Care Provider [phone] Reason for Visit * Reason Comments Pre-visit Planning SDOH Screening unabl e to complete - Tobacco screening negative Encounter Details Date Type Department Care Team ([facility] st Contact Info) Description 11/24/2024 Patient Outreach [facility] MEDICINE [address] [place] [address] Name, MD Wali [address] [place] [address] Pre-visit Planning (SDOH Screening unable to complete - Tobacco screening negative) Social History Tobacco Use Types Packs/Day Years [...] AM EDT documented as of this encounter Progress Notes * Lashay Perez - 11/24/2024 11:07 AM EDT CC Lashay Jacome placed successful outbound call to patient for pre-visit planning. Patient name and confirmed. Patient confirms appt date and time, and CC was unable to complete screening, patient stated this questions were done last week, CC explained to patient there no documentation but will put a note. PVP screening will need to be complete in office. documented in this encounter Plan of Treatment Upcoming Encounters Date Type Department Care Team (Late st Contact Info) Description 12/02/2024 9:15 AM EDT Office Visit [facility] MEDICINE [address] [place] [address] Name, MD Wali [address] [place] [address] documented as of this encounter Visit Diagnoses Not on filedocumented in this encounter Additional Health Concerns Assessment Noted Time PHQ-9 Depression Total Score: 7 11/11/19 25 11:45 AM EST documented as of this encounter Care Teams Reference Investigator Relationship Specialty Start Date End Date Wali Magallanes MD [address] [place] [address] PCP - General Family Medicine 12/21/15 documented as of this encounter
--- OUTSIDE RECORDS SUMMARY | 2024-11-29 17:10 | XMS_ITS | Encounter Summary ---
Author Organization [employer] Address 75 [facility] 7t [place] [address] Care Team Providers Care Drapery Head Former Name Role Phone Name, Wali PEARL Primary Care Provider [phone] Encounter Details Date Type Department Care Team (Latest Contact Info) Description 11/11/2024 Travel Social History Tobacco Use Types Packs/Day Years [...] Description 12/02/2024 9:15 AM EDT Office Visit [facility] MEDICINE [address] [place] [phone] Name, MD Wali [address] [place] [address] documented as of this encounter Visit Diagnoses Not on filedocumented in this encounter Additional Health Concerns Assessment Noted Time PHQ-9 Depression Total Score: 7 11/11/19 25 11:45 AM EST documented as of this encounter Care Teams Drapery Head Former Relationship Specialty Start Date End Date Name, MD Wali [address] [place] [address] PCP - General Family Medicine 12/21/15 documented as of this encounter
--- OUTSIDE RECORDS SUMMARY | 2024-11-29 17:10 | XMS_ITS | Encounter Summary ---
Author Organization [employer] Address 75 [facility] 7t [place] [address] Care Team Providers Care Auto Transmission Specialist Name Role Phone Name, Wali PEARL Primary Care Provider [phone] Reason for Visit * Reason Onset Date Comments Referral 11/03/2024 Encounter Details Date Type Department Care Team ([facility] st Contact Info) Description 11/03/2024 Telephone [facility] MEDICINE [address] [place] [address] Name, MD Wali [address] [place] [address] Referral Social History Tobacco Use Types Packs/Day Years [...] encounter Miscellaneous Notes * Telephone Encounter - Marcie Nguyen RN - 11/03/2024 10:24 AM EST TC to pt, pt requesting referral to neurology, states will discuss with pcp at next week's appt. * Telephone Encounter - Ashwin Boyce - 11/03/2024 8:21 AM EST Tc from pt Spouse requesting a referral for Neurology. Due to pt getting Side Affects from some medication that he is taking. Also they were told by a doctor at the ER to get the referral. Contact pt Spouse at [phone] documented in this encounter Plan of Treatment Upcoming Encounters Date Type Department Care Team (Late st Contact Info) Description 12/02/2024 9:15 AM EDT Office Visit [facility] MEDICINE [address] [place] [address] Name, MD Wali [address] [place] [address] documented as of this encounter Visit Diagnoses Not on filedocumented in this encounter Additional Health Concerns Assessment Noted Time PHQ-9 Depression Total Score: 0 11/10/19 10:14 AM EST documented as of this encounter Care Teams Auto Transmission Specialist Relationship Specialty Start Date End Date Name, MD Wali [address] [place] [address] PCP - General Family Medicine 12/21/15 documented as of this encounter
--- OUTSIDE RECORDS SUMMARY | 2024-11-29 17:10 | XMS_ITS | Encounter Summary ---
Author Organization [employer] Address 75 [facility] 7t [place] [address] Care Team Providers Care Masonry Inspector Name Role Phone Name, Wali PEARL Primary Care Provider [phone] Reason for Visit * Reason Onset Date Comments Results 08/04/2024 Medication Question 08/04/2024 Encounter Details Date Type Department Care Team ([facility] st Contact Info) Description 08/04/[address] [facility] MEDICINE [address] [place] [address] Name, MD Wali [address] [place] [address] Results; Medication Question Social History Tobacco Use [...] results: swab Date when done: 08/03/24 Facility: [facility] walk in Pt would like to know if medication can be prescribe. documented in this encounter Plan of Treatment Upcoming Encounters Date Type Department Care Team (Late st Contact Info) Description 12/02/2024 9:15 AM EDT Office Visit [facility] MEDICINE [address] [place] [address] Name, MD Wali [address] [place] [address] documented as of this encounter Visit Diagnoses Not on filedocumented in this encounter Additional Health Concerns Assessment Noted Time PHQ-9 Depression Total Score: 0 11/10/19 10:14 AM EST documented as of this encounter Care Teams Masonry Inspector Relationship Specialty Start Date End Date Name, MD Wali [address] [place] [address] PCP - General Family Medicine 12/21/15 documented as of this encounter
--- OUTSIDE RECORDS SUMMARY | 2024-11-29 17:10 | XMS_ITS | Encounter Summary ---
Author Organization [facility] Address 75 [facility] 7t [place] [address] Care Team Providers Care Layout Inspector Name Role Phone NameWali MD Primary Care Provider [phone] Reason for Referral * Imaging (Routine) - Authorized Specialty Diagnoses / Procedures Referred By Contac t Referred To Contact Cardiology Diagnoses TIA (transient ischemic attack) Procedures Transthoracic Echo (TTE) Complete Wali Magallanes MD [address] [place] [address] Phone: tel: fax: [address] Phone: tel: fax: Referral ID Status Reason Start Date Expiration Date Visits Requested Visits Authorized [id number] Authorized Perform Procedure 11/11/2024 11/11/2025 1 1 Reason for Visit * Reason Comments HDF Encounter Details Date Type Department Care Team (Late st Contact Info) Description 11/11/2024 10:00 AM EST Office Visit [facility] MEDICINE [address] [place] [address] Wali Magallanes MD [address] [place] [address] [phone] Syncope and collapse (Primary Dx); TIA (transient ischemic attack); Hypertension, unspecified type; Depression with anxiety; Low back pain at multiple sites Social History Tobacco Use Types Packs/Day Years [...] Sign Reading Time Taken Comments Blood Pressure 130/87 11/11/2024 10:15 AM EST Pulse 112 11/11/2024 10:15 AM EST Temperature 36.7 ??C (98 ??F) 11/11/2024 10:15 AM EST Respiratory Rate 21 11/11/2024 10:15 AM EST Oxygen Saturation 98% 11/11/2024 10:15 AM EST Inhaled Oxygen Concentration - - Weight 82.2 kg (181 lb 3.2 oz) 11/11/2024 10:15 AM EST Height 182.9 cm (6') 11/11/2024 10:15 AM EST Body Mass Index 24.58 11/11/2024 10:15 AM EST documented in this encounter Progress Notes * Wali Magallanes, - 11/11/2024 10:00 AM EST Subjective Patient ID: Davion Dao is a 59 y.o. male who presents for HDF. Patient comes for a posthospitalization visit. He was admitted in first week of the month at [facility] after syncopal episode. It was thought that he could have had a TIA. MRI of the brain was negative foracute pathology. He was discharged on 3 weeks of aspirin and Plavix. The patient has 2 days left ofthe Plavix. His amlodipine was discontinued because of the possibility that he could have orthostatic hypotension. By the time of his visit today he has 2 days left of the Plavix. No syncope and no neurological deficit. He had to be restarted on the amlodipine because of significant hypertension athome. His BP has improved and has been in the normal range for the past week with the use of lisinopril 20 mg and 2.5 mg of amlodipine. The patient has been extremely anxious. He is tearful during his visit. He suffers with chronic depression and anxiety that has been much worse since his recent hospitalization. He is interested in starting medication and referral to behavioral health. He is not suicidal. Summary of the recent hospitalization is written below: [facility] (10/22/24-10/23/24) Patient presented for evaluation of speech disturbances and LOC. Reported developing dizziness and synopsized. MRI brain negative. Neurology recommended aspirin daily and clopidogrel for 3 weeks. Neurology to arrange outpatient follow up. Recommended echocardiogram as outpatient with PCP. Amlodipine held due to possible orthostatic hypotension. Orthostatics negative. BP well controlled and amlodipine discontinued on discharge. Medication changes that occurred during hospitalization include: ?? Added ?? Clopidogrel 75 mg once daily x 21 days ?? Aspirin 81 mg once daily ?? Changed: none ?? Discontinued: amlodipine Review of Systems Constitutional: Negative for chills, fatigue and fever. HENT: Negative for sore throat. Respiratory: Negative for cough, chest tightness and shortness of breath. Cardiovascular: Negative for chest pain, palpitations and leg swelling. Gastrointestinal: Negative for abdominal pain and blood in stool. Musculoskeletal: Positive for back pain and neck pain. Neurological: Negative for speech difficulty and weakness. Psychiatric/Behavioral: Positive for self-injury. The patient is nervous/anxious. Visit Vitals BP 130/87 (BP Location: Left arm, Patient Position: Sitting, BP Cuff Size: Adult) Pulse (!) 112 Temp 98 ??F (36.7 ??C) (Temporal) Resp 21 Ht 6' (1.829 m) Wt 181 lb 3.2 oz (82.2 kg) SpO2 98% BMI 24.58 kg/m?? Smoking Status Never BSA 2.04 m?? Objective Physical Exam Constitutional: Appearance: Normal appearance. Cardiovascular: Rate and Rhythm: Normal rate and regular rhythm. Heart sounds: No murmur heard. Pulmonary: Effort: Pulmonary effort is normal. No respiratory distress. Breath sounds: No wheezing, rhonchi or rales. Abdominal: Palpations: Abdomen is soft. Tenderness: There is no abdominal tenderness. Musculoskeletal: Cervical back: Spasms and tenderness present. Lumbar back: Spasms and tenderness present. Right lower leg: No edema. Left lower leg: No edema. Comments: The patient describes right buttock pain because of trauma since his syncope in the beginning of the month. He comes using a cane. He has been doing physical therapy. Neurological: Mental Status: He is alert. Assessment/Plan Diagnoses and all orders for this visit: Syncope and collapse Comments: Continue current medications for hypertension. BP has been well-controlled since he restarted 2.5 mg of amlodipine with 20 mg of lisinopril Continue checking blood pressure at home. Referral to echocardiogram as recommended on discharge from the hospital. Keep upcoming appointment with [facility] neurology. He will discontinue the Plavix 2 days from now. Continue baby aspirin We will discuss starting a statin on his next visit. He has appointment for next month. TIA (transient ischemic attack) - Transthoracic Echo (TTE) Complete; Future Hypertension, unspecified type Depression with anxiety Comments: I will call behavioral health to meet with the patient today. I started the patient on sertraline. Follow-up next month. Low back pain at multiple sites Comments: Continue physical therapy. I prescribed the patient a course of Flexeril. Consider restarting as needed NSAIDs after he is done with the Plavix. Orders: - cyclobenzaprine (Flexeril) 10 MG tablet; Take 1 tablet (10 mg) by mouth if needed in the morning,at noon, and at bedtime for muscle spasms (for back pain) for up to [address] with medicaion Other orders - sertraline (Zoloft) 25 MG tablet; Take 1 tablet (25 mg) by mouth Once per day for 7 days, THEN 2 tablets (50 mg) Once per day. documented in this encounter Plan of Treatment Upcoming Encounters Date Type Department Care Team (Late st Contact Info) Description 12/02/2024 9:15 AM EDT Office Visit [facility] MEDICINE [address] [place] [address] Name, MD Wali [address] [place] [address] Scheduled Orders Name Type Priority Associated Diagnoses Order Schedule Transthoracic Echo (TTE) Complete Echocardiography Routine TIA (transient ischemic attack) Expected: 11/11/2024 (Approximate), Expires: 11/11/2026 documented as of this encounter Visit Diagnoses Diagnosis Syncope and collapse- Primary TIA (transient ischemic attack) Unspecified transient cerebral ischemia Hypertension, unspecified type Depression with anxiety Dysthymic disorder Low back pain at multiple sites documented in this encounter Additional Health Concerns Assessment Noted Time PHQ-9 Depression Total Score: 7 11/11/19 25 11:45 AM EST documented as of this encounter Care Teams Layout Inspector Relationship Specialty Start Date End Date Name, MD Wali [address] [place] [phone] PCP - General Family Medicine 12/21/15 documented as of this encounter
--- OUTSIDE RECORDS SUMMARY | 2024-11-29 17:10 | XMS_ITS | Encounter Summary ---
Author Organization [employer] Address 75 [facility] 7t [place] [address] Care Team Providers Care Mill Feeder Name Role Phone Name, Wali PEARL Primary Care Provider [phone] Reason for Visit * Reason Onset Date Comments chartprep 11/09/2024 Encounter Details Date Type Department Care Team ([facility] st Contact Info) Description 11/09/2024 Telephone [facility] MED & PEDS [address] [place], [place] [phone] Name, MD Wali [address] [place] [address] chartprep Social History Tobacco Use Types Packs/Day Years [...] encounter Miscellaneous Notes * Telephone Encounter - Danna Weston MA - 11/09/2024 9:26 AM EST Chart Prep Labs: done Images: not applicable Vaccines due: yes Covid, pcv20, and zoster. Referrals: Currently being seen at [facility] for lower back, now having upper back pain, please schedule there for upper back pain. [facility] fax: [phone] Screenings: colonoscopy , HIV Overdue care gaps: Sbirt, SDOH, PHQ-9, GLENDA-7 documented in this encounter Plan of Treatment Upcoming Encounters Date Type Department Care Team (Late st Contact Info) Description 12/02/2024 9:15 AM EDT Office Visit [facility] MEDICINE [address] [place] [address] Name, MD Wali [address] [place] [address] documented as of this encounter Visit Diagnoses Not on filedocumented in this encounter Additional Health Concerns Assessment Noted Time PHQ-9 Depression Total Score: 0 11/10/19 24 10:14 AM EST documented as of this encounter Care Teams Mill Feeder Relationship Specialty Start Date End Date NameWali MD [address] [place] [address] PCP - General Family Medicine 12/21/15 documented as of this encounter
--- OUTSIDE RECORDS SUMMARY | 2024-11-29 17:10 | XMS_ITS | Encounter Summary ---
Author Organization [employer] Address 75 [facility] 7t [place] [address] Care Team Providers Care Candy Dipper Hand Name Role Phone Name, Wali PEARL Primary Care Provider [phone] Reason for Visit * Reason Onset Date Comments Nurse Triage 08/22/2023 Encounter Details Date Type Department Care Team ([facility] st Contact Info) Description 08/22/2023 Telephone [facility] MEDICINE [address] [place] [address] Name, MD Wali [address] [place], [place] [phone] Nurse Triage Social History Tobacco Use Types [...] 1:27 PM EST T/C to pt. Through [employer] id - [id number] for below message, pt. Also advised to [...] elevated BP of 161/100. Pt went to [facility] and [facility] and due to long wait times did [...] provider. Pt advised of NTTS services and traffic controller cable provider availability. Davion Dao also given contact [...] review and further advise team nurses of [facility] for HTN management. Future Appointments Date Time Provider Department Center 10/02/2023 10:30 AM Wali Magallanes MD MEDICINE [facility] Protocol Used: Blood Pressure - High [...] MG tablet Instead of 1 as directed. Mohawk Speaker documented in this encounter Plan of Treatment Upcoming Encounters Date Type Department Care Team (Late st Contact Info) Description 12/02/2024 9:15 AM EDT Office Visit [facility] MEDICINE [address] [place] [address] Name, MD Wali [address] [place] [address] documented as of this encounter Visit Diagnoses Not on filedocumented in this encounter Care Teams Candy Dipper Hand Relationship Specialty Start Date End Date Wali Magallanes MD [address] [place] [address] PCP - General Family Medicine 12/21/15 documented as of this encounter
--- OUTSIDE RECORDS SUMMARY | 2024-11-29 17:10 | XMS_ITS | Clinical Summary ---
Author Organization [employer] Address 75 [facility] 7t [place] [address] Care Team Providers Care Kitchen Aide Name Role Phone Name, Wali PEARL Primary Care Provider [phone] Allergies No known active allergies Medications * This document contains information received from the source organization and may not represent a complete record from that organization. Blood Pressure Monitoring (Omron 3 Series BP [...] areas 100 g 2 10/02/19 24 Active albuterol 108 (90 Base) MCG/ACT [...] TIMES DAILY 90 tablet 07/28/20 24 Active lisinopril 20 MG tablet Take 1 tablet (20 mg) by mouth Once per day. TAKE 1 TABLET(20 MG) BY MOUTH IN THE MORNING 30 tablet 11 08/20/20 24 025 Active amLODIPine (Norvasc) 2.5 MG tablet Take 2 tablets (5 mg) by mouth Once per day. 60 tablet 11 10/29/19 25 026 Active aspirin 81 MG chewable tablet Chew 81 mg Once per day. 10/23/19 25 Active cyclobenzaprine (Flexeril) 10 MG tabletIndicatio ns:Low back pain at multiple sites Take 1 tablet (10 mg) by mouth if needed in the morning, at noon, and at bedtime for muscle spasms (for back pain) for up to [address] with medicaion 20 tablet 11/11/19 25 Active sertraline (Zoloft) 25 MG tablet Take 1 tablet (25 mg) by mouth Once per day for 7 days, THEN 2 tablets (50 mg) Once per day. 127 tablet 2 11/11/19 25 025 Active cyclobenzaprine (Flexeril) 10 MG tabletIndicatio ns:Left-sided low back pain without sciatica, unspecified chronicity Take 1 tablet (10 mg) by mouth if needed in the morning, at noon, and at bedtime for muscle spasms (for back pain) for up to [address]. [address] with medicaion 20 tablet 01/29/20 24 025 Discontinued(Me d list cleanup (will not trigger notification to Pharmacy)) ibuprofen 200 MG tablet Take 2 tablets (400 mg) by mouth every 12 (twelve) hours if needed for mild pain or moderate pain. 20 tablet 08/04/20 24 025 Discontinued(Me d list cleanup (will not trigger notification to Pharmacy)) Plavix 75 MG tablet Take 1 tablet by mouth Once per day. 10/23/19 25 025 Active Problems Problem Noted Date Diagnosed Date Anxiety disorder, unspecified 11/11/2024 TIA (transient ischemic attack) 11/11/2024 Mild depression 11/11/2024 Slow urinary stream 02/03/2024 Assessment & Plan [...] of colonoscopy 10/14/2022 Overview (10/14/2022): [place] [facility] [place]. He was recommended to repeat in 10 years Shoulder pain 08/18/2017 Joint pain 12/21/2015 Chronic pain 04/27/2015 Overview (10/14/2022): Also [place] [facility] [place] HTN (hypertension) 04/27/2015 Assessment [...] Urinary tract infection symptoms 02/03/2024 02/03/2024 Encounters * This document contains information received from the source organization and may not represent a complete record from that organization. Date Type Department Care Team Description 11/24/2024 Patient Outreach [facility] MED[facility] [address] [place] [phone] Wali Magallanes MD Pre-visit Planning (SDOH Screening unable to complete - Tobacco screening negative) 11/22/2024 Telephone [facility] MED[facility] [address] [place] [address] Wali Magallanes MD Medication Question 11/11/2024 10:00 AM EST Office Visit [facility] [address] [place] [phone] Wali Magallanes MD Syncope and collapse (Primary Dx); TIA (transient ischemic attack); Hypertension, unspecified type; Depression with anxiety; Low back pain at multiple sites 11/11/2024 Travel 11/09/2024 Telephone [facility] MED & PEDS [address] [place], [place] [phone] Wali Magallanes MD chartprep 11/03/2024 Telephone [facility] [address] [place] [phone] Wali Magallanes MD Referral 10/29/2024 2:00 PM EST Office Visit [facility] [address] [place] [phone] Estella Jennings FNP Epistaxis (Primary Dx); Upper back pain; Hypertension, unspecified type 10/29/[address] [phone] Wali Magallanes MD Nurse Triage 10/25/2024 Telephone [facility] [address] [place] [address] Wali Magallanes MD ER Follow-up 10/05/[address] [phone] Wali Magallanes MD Nurse Triage 09/17/[address] [phone] Mireille aLrry MA fe recalls from Last 3 Months Immunizations Name Administration [...] Mass Index 24.58 11/11/2024 10:15 AM EST Plan of Treatment Upcoming Encounters Date Type Department Care Team (Late st Contact Info) Description 12/02/2024 9:15 AM EDT Office Visit [facility] [address] [place] [phone] Name, MD Wali [address] [place] [phone] Health Maintenance Due Date Last Done Comments CT Colonography 1963 FIT DNA/Cologuard 1963 FIT 1963 FOBT 1963 HIV Screening 1963 Sigmoidoscopy 1963 Alcohol/Substance Use Screening 1975 Pneumococcal Vaccine: 50+ Years (1 of 1 - PCV) 2013 Zoster Vaccines (1 of 2) 2013 RSV Patients and Patients Aged 60 years or older (1 - Risk 60-74 years 1-dose series) 2023 COVID-19 Vaccine ( season) 2024 01/25/2021, 12/26/2020 Colonoscopy 10/25/2024 10/25/2014 Colorectal Cancer Screening 10/25/2024 SDOH Screening 10/29/2024 10/29/2023 Depression Screening 11/11/2025 11/11/2024, 11/11/19 Tobacco Screening 11/11/2025 11/11/2024 DTaP/Tdap/Td Vaccines (2 - Td or Tdap) 06/10/2028 06/10/2018, 03/29/2013 Lipid Panel 11/16/2028 11/17/2023, 09/17, 11/02/2021, Additional history exists Hepatitis C Screening Completed 10/28/2022 Influenza Vaccine [...] Procedure Name Priority Date/Time Associated Diagnosis Comments AMB REFERRAL TO PHYSICAL MEDICINE REHAB/PHYSIATRY Urgent 11/17/2024 Left-sided low back pain without sciatica, unspecified chronicity PROTHROMBIN TIME-INR Routine 10/29/2024 2:00 PM EST Epistaxis CBC WITH AUTO DIFFERENTIAL Routine 10/29/2024 2:00 PM EST Epistaxis LIPID PANEL, STANDARD Routine 11/17/2023 8:06 AM EST Screening for cholesterol level HEPATITIS C AB W/REFL TO HCV RNA, QN, PCR Routine 10/28/2022 8:03 AM EST Hyperkalemia Transaminitis HM COLONOSCOPY Routine 10/25/2014 8:52 AM EST from Last 3 Months or Most Recently Relevant to Health Maintenance Results * Referral to Physiatry (11/17/2024) Liu Stevens MD OUTPATIENT REFERRAL ORDERABLES F inal Result * (ABNORMAL) CBC auto differential (10/29/2024 2:00 PM EST) White Blood Count 7.7 4.8 - 10.8 X10*3/uL [facility] Red Blood Count 6.24(H) 4.60 - 5.80 X10*6/uL [facility] Hemoglobin 16.4 14.0 - 18.0 g/dl [facility] Hematocrit 51.0 42.0 - 52.0 % [facility] Mean Corpuscular Volume 81.7 80.0 - 98.0 fL [facility] Mean Corpuscular Hemoglobin 26.3(L) 27.0 - 33.0 pg [facility] Mean Corpuscular HGB Conc 32.2 31.0 - 36.0 g/dl [facility] Red Cell Distribution Width 16.4(H) 11.0 - 16.0 % [facility] Platelet Count 319 160 - 400 X10*3/uL [facility] Mean Platelet Volume 9.3(L) 9.4 - 12.4 fL [facility] Neutrophils Percent Auto 42.3(L) 45 - 73 % [facility] Imm Gran Pct Auto 0.1 0.0 - 0.4 % [facility] Lymphocytes Percent Auto 43.7(H) 20 - 40 % [facility] Monocytes Percent Auto 10.5 2 - 11 % [facility] Eosinophils Percent Auto 2.5 0 - 4 % [facility] Basophils Percent Auto 0.9 0 - 2 % [facility] NRBC Pct Auto 0.0 0.0 - 0.2 /100WBC [facility] Neutrophils Absolute Auto 3.2 2.0 - 8.3 x10*3/uL [facility] Imm Gran Abs Auto 0.01 0.00 - 0.03 X10*3/uL [facility] Lymphocytes Absolute Auto 3.3 1.2 - 4.9 X10*3/uL [facility] Monocytes Absolute Auto 0.8 0.1 - 1.2 X10*3/uL [facility] Eosinophils Absolute Auto 0.2 0.0 - 0.4 X10*3/uL [facility] Basophils Absolute Auto 0.1 0.0 - 0.2 X10*3/uL [facility] NRBC Abs Auto 0.000 0.0 - 0.012 X10*3/uL [facility] Blood Venous blood specimen / Unknown 10/29/2024 2:00 PM EST 10/29/2024 4:12 PM EST Estella Jennings [facility] LAB BLOOD ORDERABLES Final Resu lt [facility] [address] [place] [phone] * Prothrombin Time-INR (10/29/2024 2:00 PM EST) Prothrombin Time 11.6 10.9 - 12.4 SEC [facility] INTERNATIONAL NORM RATIO 1.0 0.9 - 1.1 [facility] Comment:INTERNATIONAL NORMAL IZED RATIO (INR) REFERENCE RANGES Reference RangeFor patients not on anticoagulant therapy: 0.9 - 1.1INR ranges for oral anticoagulanttherapy:For prevention and treatment of venous thrombosis and pulmonary embolism: 2.0 - 3.0For acute myocardial infarction with aspirin therapy: 2.0 - 3.0For acute myocardial infarction without aspirin therapy: 3.0 - 4.0For patients with mechanical prosthetic heart valves: 2.5 - 3.5 Blood Venous blood specimen / Unknown 10/29/2024 2:00 PM EST 10/29/2024 4:12 PM EST Estella Jennings DIRECT MARKETING ANALYST LAB BLOOD ORDERABLES Final Resu lt Performing Organization Address City/[facility]/ZIP Co de Phone Number [facility] [address] [place] [phone] * (ABNORMAL) Lipid Panel, Standard (11/17/2023 8:06 AM EST) Triglycerides 64 <150 mg/dL [facility] Comment:Desirable Triglyceri de: less than 150 mg/dLBorderline High Triglyceride 150-199 mg/dLHigh Triglyceride: 200-499 mg/dLVery High Triglyceride: greater than or equal to 5OO mg/dL Cholesterol 174 <200 mg/dL [facility] Comment:Desirable Cholestero l: less than 200 mg/dLBorderline High Cholesterol: 200-239 mg/dLHigh Cholesterol: greater than 239 mg/dL LDL Cholesterol Calculated 103(H) <100 mg/dL [facility] Comment:Desirable LDL: less than 100 mg/dLNear Optimal/Above Optimal LDL: 110- 129 mg/dLBorderline High LDL: 130-159 mg/dLHigh LDL: 160-189 mg/dLVery High LDL: greater than or equal to 190 mg/dL HDL Cholesterol 59 >40 mg/dL [facility] Comment:Desirable HDL: great er than 40 mg/dL Note: This HDL assay may give artificially low results in patients with liver disease. Blood Venous blood specimen / Unknown 11/17/2023 8:06 AM EST 11/17/2023 11:25 AM EST Wali Magallanes MD LAB BLOOD ORDERABLES Final Resul t Performing Organization Address City/[facility]/ZIP Co de Phone Number [facility] [address] [place] [address] [phone] * Hepatitis C Antibody with Reflex to HCV, RNA, Quantitative, Real-Time PCR (10/28/2022 8:03 AM EST) Hepatitis C Antibody NON-REACT ALEN NON-REACT ALEN [employer] [place] [facility] Index 0.04 <1.00 [facility] Comment: HCV antibody was non-reactive. There is no laboratory evidence of HCV infection. In most cases, no further action is required. However, if recent HCV exposure is suspected, a test for HCV RNA (test code 07264) is suggested. For additional information please refer to http://education.Pipedrive/faq/AUY10u8 (This link is being provided for informational/ educational purposes only.) Blood Venous blood specimen / Unknown 10/28/2022 8:03 AM EST 10/28/2022 8:03 AM EST Narrative [facility] - 10/28/2022 10:47 PM EST FASTING:YES FASTING: YES Wali Magallanes MD LAB BLOOD ORDERABLES Final Resul t [facility] [address], [place] [address] [employer] [place] [facility] [address] [facility], ([address]) [place] [address] * Hm Colonoscopy (10/25/2014 8:52 AM EST) Colonoscopy Normal Normal Narrative Yasmeen Christensen - 10/25/2014 8:52 AM EST Recommended 10 year follow up Historical Provider HEALTH MAINTENANCE Final Result from Last 3 Months or Most Recently Relevant to Health Maintenance [place] [place] [address] - [employer] Care Teams Kitchen Aide Relationship Specialty Start Date End Date Name, MD Wali [address] [place] [phone] PCP - General Family Medicine 12/21/15
--- OUTSIDE RECORDS SUMMARY | 2024-11-29 17:10 | XMS_ITS | Clinical Summary ---
Author Organization [facility] ity Address [address] [place] [address] Care Team Providers Care Bus Matron Name Role Phone Unavailable Primary Care Provider [...]
--- OUTSIDE RECORDS SUMMARY | 2024-11-29 17:11 | XMS_ITS | Encounter Summary ---
Author Organization [facility] Address [address] [facility] 7t [place] [address] Care Team Providers Care Automotive Engineering Technician Name Role Phone Name, Wali PEARL Primary Care Provider [phone] Encounter Details Date Type Department Care Team (Late st Contact Info) Description 02/17/[address] [phone] Name, MD Wali [address] [place] [address] [phone] Social History Tobacco Use Types Packs/Day Years [...] Description 12/02/2024 9:15 AM EDT Office Visit [address] [address] Name, MD Wali [address] [place] [address] [phone] documented as of this encounter Procedures Procedure Name Priority Date/Time Associated Diagnosis Comments COLONOSCOPY Routine 10/25/2014 8:52 AM EST documented in this encounter Results * Colonoscopy (10/25/2014 8:52 AM EST) Colonoscopy Normal Normal Narrative Yasmeen Christensen - 10/25/2014 8:52 AM EST Recommended 10 year follow up us Historical Provider HEALTH MAINTENANCE Final Result documented in this encounter Visit Diagnoses Not on filedocumented in this encounter Care Teams Automotive Engineering Technician Relationship Specialty Start Date End Date Name, MD Wali [address] [place] [address] PCP - General Family Medicine 12/21/15 documented as of this encounter
--- OUTSIDE RECORDS SUMMARY | 2024-11-29 17:11 | XMS_ITS | Encounter Summary ---
Author Organization [facility] Address [address] [facility] 7t [place] [address] Care Team Providers Care Engineer Geophysical Laboratory Name Role Phone Name, Wali PEARL Primary Care Provider [phone] Reason for Visit * Reason Comments Med Refill Encounter Details Date Type Department Care Team (Late st Contact Info) Description 02/06/2023 Refill [facility] [address] [place] [address] [phone] Name, MD Wali [address] [place] [address] [phone] Social History Tobacco Use Types Packs/Day Years [...] Description 12/02/2024 9:15 AM EDT Office Visit [facility] [address] [place] [address] Name, MD Wali [address] [place] [address] documented as of this encounter Visit Diagnoses Not on filedocumented in this encounter Care Teams Engineer Geophysical Laboratory Relationship Specialty Start Date End Date Name, MD Wali [address] [place] [address] PCP - General Family Medicine 12/21/15 documented as of this encounter
== END ==
LOC: HO.CARD 14:34
PROVIDERS: PCP Internal Medicine Geriatric Medicine; Visit Provider Internal Medicine Geriatric Medicine
DX: G45.9 Transient cerebral ischemic attack, unspecified (principal)
CPT/HCPCS: 93306

== ENCOUNTER → 2024-11-29 14:38 | Outpatient (BNV) | payer OTHER, SELFPAY | PROVIDERS: PCP Internal Medicine Geriatric Medicine; Visit Provider Internal Medicine | DX: G45.9 Transient cerebral ischemic attack, unspecified (principal) | CPT/HCPCS: 93306 ==

== ENCOUNTER 2025-03-22 09:45 | Outpatient (AMB) | payer OTHER, SELFPAY ==
--- NOTE | 2025-03-22 09:51 | A.OFFVIS_ITS ---
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/ Name/ cardiomyopathy Intake Note: New patient with ekg Dr Name dx cardiomyopathy patient has no symptoms Alignment Mechanic Required: Yes Alignment Mechanic Services: Alignment Mechanic Offered & Declined Alignment Mechanic Name: spouse Firer Helper: Firer Helper Present Accompanied by: Spouse Allergies No Known Allergies Allergy (Verified 03/22/25 10:00) Medication List - Last Reconciled 03/22/25 by Roldan Charles MD amlodipine 2.5 mg PO DAILY lisinopril 10 mg PO DAILY HPI Comments Details: Thank you for referring Wai in cardiology consultation today for recently noted mild cardiomyopathy on echocardiogram. Echocardiogram was ordered for syncopal episode. Patient says in wintertime in September while he was at a [employer] he suddenly felt lightheaded and felt like he is going to blackout and then try to get up to sees son and then fell backward in his lost consciousness. Since then he has not had any recurrent episode. He said that day he had not hydrated himself well and symptoms appear to be orthostatic in nature. He had no palpitation, chest pain, shortness of breath. He has longstanding hypertension which is as per him well controlled on current dual therapy with lisinopril and amlodipine. He had an echocardiogram performed in November for that episode and which showed mildly reduced LV ejection fraction 45- 50% and he was referred here for further evaluation. Since then he denies any symptoms of exertional chest pain, shortness of breath, orthopnea, PND, leg edema. He remains active however his back pain limits him from being fully functional. He has had no recurrent syncopal episodes. Denies any alcohol use or smoking or any other drug use. [facility] Surgical History History of back surgery Family History Father No problems noted. Mother HTN (hypertension) Social History Patient Tobacco Use Status: Never used Tobacco Review of Systems Const Denies chills, Denies daytime sleepiness, Denies fatigue, Denies fever(s), Denies frequent falls, Denies poor appetite, Denies snoring, Denies stops breathing during sleep, Denies weakness, Denies weight gain and Denies weight loss Eyes Denies loss of vision ENT Denies dizziness and Denies hearing loss Card Denies chest pain, Denies claudication, Denies leg edema, Denies lightheaded ness, Denies palpitations, Denies dyspnea, Denies dyspnea on exertion and Denies orthopnea Resp Denies cough, Denies excessive phlegm production, Denies dyspnea, Denies dyspnea on exertion, Denies snoring and Denies wheezing GI Denies abdominal pain, Denies hematochezia, Denies change in bowel habits, Denies nausea and Denies vomiting Denies dysuria and Denies urinary frequency Musc Denies arthralgias, Denies muscle weakness, Denies numbness and Denies other (frequent falls) Skin/Breast Denies nail changes and Denies rash Neuro Denies Abnormal speech present, Denies dizziness, Denies frequent falls, Denies loss of vision, Denies memory loss, Denies numbness and Denies weakness Psych Denies depression and Denies memory loss Endo Denies fatigue and Denies palpitations Nikolas/Lymph Reports easy bruising and Reports other (anemia) Aller/Immun Denies wheezing Physical Exam Vital Signs: Last Vital Signs Pulse 72 03/22/25 09:52 BP 128/80 03/22/25 09:52 BMI result Body Mass Index 18.9 Const General: cooperative, comfortable, no acute distress, alert and awake Nutritional Appearance: average body habitus Orientation/consciousness: patient oriented x3 Limitations: ambulation with cane HEENT Head: Yes normocephalic and Yes atraumatic Neck Neck: Yes trachea midline, Yes supple and Yes no JVD Resp Effort & Inspection: normal respiratory effort Auscultation: clear to auscultation bilaterally Cardio Jugular venous distension: no JVD Palpation: normal PMI Rate: regular rate Rhythm: regular rhythm Heart sounds: S1 normal heart sound present, S2 normal heart sound present, no click, no gallops and no murmurs GI Auscultation: normal bowel sounds Skin General skin exam: no rashes or lesions noted Neuro General: patient oriented x3 and no focal motor deficits Speech: No Abnormal speech present Extrem General: Yes no clubbing, cyanosis or edema Psych Appearance: grossly normal Office Procedures EKG Details: EKG shows normal sinus rhythm normal EKG 60953-[id number], Complete Assessment & Plan Assessment & Plan (1) Cardiomyopathy: Code(s): I42.9 - Cardiomyopathy, unspecified Category: Medical Plan: Mild cardiomyopathy in this middle-aged gentleman without any obvious other etiology. Most likely hypertensive in nature. Ischemic etiology needs to be ruled out. Will order vasodilating myocardial perfusion imaging due to his limited exercise capacity. Meanwhile continue lisinopril therapy for neurohormonal modulation and will switch his amlodipine to metoprolol therapy for neurohormonal modulation. Benefits of neurohormonal modulation was discussed with him. Signs and symptoms of heart failure were discussed. Management was discussed in details with the help of his significant other who helped with interpretation. (2) HTN (hypertension): Code(s): I10 - Essential (primary) hypertension Category: Medical Plan: Hypertension which is currently well optimized on dual therapy although will switch his amlodipine to metoprolol therapy for neurohormonal modulation. Advised to monitor blood pressure at home maintain a log. Goal blood pressure less than 130/84. Low-salt diet was advised. He had a syncopal episode which appears to be likely orthostatic in nature although cardiac arrhythmias can not be entirely ruled out. Will suggest a Holter monitor for the same. Will follow up in the clinic in 6 weeks time, sooner p.r.n.. Thank you for allowing me to partake in his care Orders: Orders CA lexiscan stress w angie Today I42.9 - Cardiomyopathy, unspecified Medications: New metoprolol succinate ER (Toprol XL) 50 mg PO DAILY 30 tabs 3RF I42.9 - Cardiomyopathy, unspecified Coding Level of Care Code New Pt Level 4 (85314) Complex EM visit Add On G2211 Diagnoses Cardiomyopathy I42.9 HTN (hypertension) I10 CPT Codes EKG - CPT: 38139-[id number], Complete ([id number])
[2025-03-22 09:52] VITALS: BP 128/80; PULSE 72; BMI 18.9
--- OUTSIDE RECORDS SUMMARY | 2025-03-22 10:21 | XMS_ITS | Encounter Summary ---
Author Organization [employer] Address [address] [facility] [address] [place] [address] Care Team Providers Care Tray Casting Machine Operator Name Role Phone Name, Wali PEARL Primary Care Provider [phone] Reason for Visit * Reason Onset Date Comments Nurse Triage 04/22/2024 Encounter Details Date Type Department Care Team ([facility] st Contact Info) Description 04/22/2024 Telephone [facility] [address] [place], [place] [phone] Name, MD Wali [address] [place] [address] Nurse Triage Social History Tobacco Use Types [...] ER precautions andreasons to call back. Reviewed [facility] operating hours and that wait times [...] documented in this encounter Plan of Treatment Not on file documented as of this encounter Visit Diagnoses Not on filedocumented in this encounter Additional Health Concerns Assessment Noted Time PHQ-9 Depression Total Score: 0 11/10/19 24 10:14 AM EST documented as of this encounter Care Teams Tray Casting Machine Operator Relationship Specialty Start Date End Date Name, MD Wali [address] [place] [address] PCP - General Family Medicine 12/21/15 documented as of this encounter
--- OUTSIDE RECORDS SUMMARY | 2025-03-22 10:21 | XMS_ITS | Clinical Summary ---
Author Organization [facility] ity Address [address] [place] [address] Care Team Providers Care Economist Research Assistant Name Role Phone Unavailable Primary Care Provider [...] 2023-2 5 season) 2024 Influenza Vaccine (#1) 2025 RSV Immunization Adult Patie nts (1 - 1-dose 75+ series) 2038 HIB [...] age to complete this topic Meningococcal B Vaccine Aged Out No l onger eligible based on patient's age to complete this topic RSV Immunization Patients Un bill 20 months Aged Out No longer eligible b ased on patient's age to complete this topic Varicella Vaccines Aged Out No longer eligible based on patient's age to complete this topic
== END 2025-03-22 10:35 | disposition home or self-care (01) ==
LOC: HO.HCS 09:46
PROVIDERS: PCP Internal Medicine Geriatric Medicine; Visit Provider Internal Medicine Cardiovascular Disease
DX: I42.9 Cardiomyopathy, unspecified (principal); I10 Essential (primary) hypertension
CPT/HCPCS: 93010; 99204; G2211

== ENCOUNTER → 2025-03-22 09:45 | Outpatient (BNVA) | payer OTHER, SELFPAY | PROVIDERS: PCP Internal Medicine Geriatric Medicine; Visit Provider Internal Medicine Cardiovascular Disease | DX: I42.9 Cardiomyopathy, unspecified (principal); I10 Essential (primary) hypertension | CPT/HCPCS: 93005; 99202 ==

== ENCOUNTER → 2025-07-06 09:28 | Outpatient (REF) | payer OTHER, SELFPAY ==
--- NOTE | ~2025-07-06 | NM_ITS ---
Lexiscan Myocardial perfusion study Indication: Cardiomyopathy to evaluate for myocardial ischemia Technique: The patient was brought in for a Lexiscan perfusion study on 07/06/2025 and was injected 0.4 mg of Lexiscan intravenously. Within a minute of this injection 25 mCi of sestamibi was given intravenously. Images were obtained using the SPECT gamma camera interlaced with the gating device. Images were obtained in supine position. Resting perfusion study was performed on 07/07/2025. Patient was administered 25 mCi of sestamibi intravenously at rest. Images were then obtained in supine position. Images obtained without without CT attenuation. Total DLP 80 mGy-cm. Images were processed with the software and compared side to side in short axis, horizontal long axis and vertical long axis views. Findings: The stress perfusion study showed nonattenuated images show mildly reduced uptake in the mid to basal inferior and inferolateral wall of the LV myocardium. Remainder of the LV myocardium is normally perfused. Attenuated corrected images show normal uptake ordered images in all segments of the LV myocardium.. The gated study shows normal LV systolic function with calculated LVEF of 63%. LV cavity is mildly dilated in size. The gated study shows normal systolic wall thickening and contraction of segments. Resting study shows both nonattenuated attenuated corrected images show normal uptake ordered images in all segments of the myocardium. Gating at rest reveals normal systolic wall motion with ejection fraction at 55%. The findings are consistent with no clear reversible defect noted on attenuated corrected images. Likely normal myocardial perfusion. NM/NM angie perf SPECT rest & str Impression: 1. Myocardial perfusion imaging study shows likely normal myocardial perfusion 2. Gated LVEF is 63% 3. Transient ischemic dilatation not present Nondiagnostic changes on EKG. Electronically signed by: Roldan Charles MD 07/08/2025 02:44 PM EDT
--- NOTE | 2025-07-06 09:32 | CA_ITS ---
Acquisition Time: 2025-07-06 09:52:34 Total Exercise Time: 00:02:00 Test Indications: Syncope/CARDIOMYOPATHY Medications: AMLODIPINE LISINOPRIL METOPROLOL Protocol: LEXISCAN Max HR: 133 BPM 84% of Pred: 158 BPM Max BP: 128/84 mmHG Max Work Load: 1.0 METS Pharmacological stress test with Lexiscan while pt marches in chair, with reports of SOB and fatigue, without any arrythmias, with normotensive response to injection. Nondiagnostic EKG for ischemia. In recovery, pt treated with IVP Aminophylline 75 mg to reverse Lexiscan after which pt slowly feeling back to baseline. Nuclear images pending. Test reviewed with Dr. Charles. Referred By: Roldan Charles Electronically Signed By: Vladislav Hua
--- NOTE | 2025-07-06 09:33 | HM_ITS ---
* Total monitoring time 3 days. * Underlying rhythm is sinus with an average rate of 68/Min. * Rare supraventricular ectopy. * Rare ventricular ectopy. * No significant pauses or high-grade AV blocks. * No patient markers or diary events. MTDD
--- OUTSIDE RECORDS SUMMARY | 2025-07-06 10:47 | XMS_ITS | Encounter Summary ---
Author Organization [employer] Address [address] [facility] 7t [place] [address] Care Team Providers Care Supervisor Harvesting Name Role Phone Name, Wali PEARL Primary Care Provider Reason for Visit * Reason Onset Date Comments Nurse Triage 10/05/2024 Encounter Details Date Type Department Care Team ([facility] st Contact Info) Description 10/05/2024 Telephone [facility] MEDICINE [address] [place], [place] [phone] Name, MD Wali [address] [place] [address] Nurse Triage Social History Tobacco Use Types [...] his interpret for him not one of [facility] staff. Ptstates that he has been [...] accepted this outcome. Contact pt Spouse at [phone] documented in this encounter Plan of Treatment Not on file documented as of this encounter Visit Diagnoses Not on filedocumented in this encounter Additional Health Concerns Assessment Noted Time PHQ-9 Depression Total Score: 0 02/26/20 24 10:14 AM EST documented as of this encounter Care Teams Supervisor Harvesting Relationship Specialty Start Date End Date Name, MD Wali [address] [place] [address] PCP - General Family Medicine 12/21/15 documented as of this encounter
--- OUTSIDE RECORDS SUMMARY | 2025-07-06 10:47 | XMS_ITS | Encounter Summary ---
Author Organization [employer] Address 75 [facility] 7t [place] [address] Care Team Providers Care Metal Temperer Name Role Phone Name, Wali PEARL Primary Care Provider [phone] Reason for Visit * Reason Onset Date Comments Results 08/04/2024 Medication Question 08/04/2024 Encounter Details Date Type Department Care Team ([facility] st Contact Info) Description 08/04/2024 Telephone [facility] MEDICINE [address] [place] [address] Name, MD Wali [address] [place] [address] Results; Medication Question Social History Tobacco Use [...] results: swab Date when done: 08/03/24 Facility: [facility] walk in Pt would like to know if medication can be prescribe. documented in this encounter Plan of Treatment Not on file documented as of this encounter Visit Diagnoses Not on filedocumented in this encounter Additional Health Concerns Assessment Noted Time PHQ-9 Depression Total Score: 0 11/10/19 10:14 AM EST documented as of this encounter Care Teams Metal Temperer Relationship Specialty Start Date End Date Name, MD Wali [address] [place] [address] PCP - General Family Medicine 12/21/15 documented as of this encounter
--- OUTSIDE RECORDS SUMMARY | 2025-07-06 10:47 | XMS_ITS | Encounter Summary ---
Author Organization [employer] Address [address] [facility] 7t [place] [address] Care Team Providers Care Assembly Worker Name Role Phone Name, Wali PEARL Primary Care Provider [phone] Reason for Visit * Reason Onset Date Comments Nurse Triage 04/22/2024 Encounter Details Date Type Department Care Team ([facility] st Contact Info) Description 04/22/2024 Telephone [facility] MEDICINE [address] [place], [place] [phone] Name, MD Wali [address] [place] [address] Nurse Triage Social History Tobacco Use Types [...] ER precautions andreasons to call back. Reviewed [facility] operating hours and that wait times [...] documented as of this encounter Care Teams Assembly Worker Relationship Specialty Start Date End Date Name, MD Wali [address] [place] [address] PCP - General Family Medicine 12/21/15 documented as of this encounter
--- OUTSIDE RECORDS SUMMARY | 2025-07-06 10:47 | XMS_ITS | Clinical Summary ---
Author Organization [facility] Address [address] [place] [address] Care Team Providers Care Aoc Director Intelligence Officer Name Role Phone Unavailable Primary Care Provider [...] 2013 Zoster Vaccines (1 of 2) 2013 Depression Screening 09/15/2024 COVID-19 Vaccine (1 - 2023-2 5 season) 2025 Influenza Vaccine (#1) 2025 RSV Immunization Adult [...]
--- OUTSIDE RECORDS SUMMARY | 2025-07-06 10:47 | XMS_ITS | Encounter Summary ---
Author Organization [employer] Address [address] [facility] 7t [place] [address] Care Team Providers Care Horse Identifier Name Role Phone Name, Wali PEARL Primary Care Provider [phone] Reason for Visit * Reason Comments Med Refill Encounter Details Date Type Department Care Team ([facility] st Contact Info) Description 08/17/2024 Refill [facility] MEDICINE [address] [place] [address] Name, MD Wali [address] [place], [place] [phone] Social History Tobacco Use Types Packs/Day Years [...] as of this encounter Plan of Treatment Not on file documented as of this encounter Visit Diagnoses Not on filedocumented in this encounter Additional Health Concerns Assessment Noted Time PHQ-9 Depression Total Score: 0 11/10/19 24 10:14 AM EST documented as of this encounter Care Teams Horse Identifier Relationship Specialty Start Date End Date Name, MD Wali [address] [place] [address] PCP - General Family Medicine 12/21/15 documented as of this encounter
--- OUTSIDE RECORDS SUMMARY | 2025-07-06 10:47 | XMS_ITS | Encounter Summary ---
Author Organization [employer] Address [address] [facility] 7t [place] [address] Care Team Providers Care Dry Goods Clerk Name Role Phone Name, Wali PEARL Primary Care Provider [phone] Encounter Details Date Type Department Care Team (Late st Contact Info) Description 09/26/2022 Orders Only [facility] MEDICINE [address] [place] [address] Olimpia Thomas LPN Social History Tobacco Use [...] on filedocumented in this encounter Care Teams Dry Goods Clerk Relationship Specialty Start Date End Date Name, MD Wali [address] [place] [address] PCP - General Family Medicine 12/21/15 documented as of this encounter
--- OUTSIDE RECORDS SUMMARY | 2025-07-06 10:48 | XMS_ITS | Clinical Summary ---
Author Organization [employer] Address [address] [facility] 7t [place] [address] Care Team Providers Care Cdl Program Coordinator Name Role Phone Name, Wali PEARL Primary Care Provider [phone] Allergies No known active allergies Medications * [...] knee 50 g 1 01/28/20 23 Active albuterol 108 (90 Base) MCG/ACT inhalerIndicati ons:Viral upper respiratory infection Inhale 2 puffs every 6 (six) hours if needed for wheezing. 18 g 11 06/30/20 24 Active Spacer/Aero-Hol d Chamber Mask miscIndications :Viral upper respiratory infection Use as directed with inhaler 1 each 06/30/20 24 Active lisinopril 20 MG tablet Take [...] mg Once per day. 10/23/19 25 Active sertraline (Zoloft) 25 MG tablet Take 1 tablet (25 mg) by mouth Once per day for 7 days, THEN 2 tablets (50 mg) Once per day. 127 tablet 2 11/11/19 25 Active ibuprofen 800 MG tablet TAKE 1 TABLET(800 MG) BY MOUTH THREE TIMES DAILY 90 tablet 06/23/20 25 Active cyclobenzaprine (Flexeril) 10 MG tabletIndicatio ns:Low back pain at multiple sites TAKE 1 TABLET BY MOUTH THREE TIMES DAILY NEEDED FOR MUSCLE SPASMS FOR 7 DAYS 20 tablet 06/29/20 25 Active Diclofenac Sodium 1 % gel APPLY TOPICALLY TO THE AFFECTED AREA TWICE DAILY 100 g 2 06/29/20 25 Active cetirizine (ZyrTEC) 10 MG tabletIndicatio ns:Viral upper respiratory infection Take 1 tablet (10 mg) by mouth Once per day. 30 tablet 5 06/29/20 25 026 Active Diclofenac Sodium 1 % gel Apply twice a day on the affected areas 100 g 2 10/02/19 24 025 Discontinued cetirizine (ZyrTEC) 10 MG tabletIndicatio ns:Viral upper respiratory infection Take 1 tablet (10 mg) by mouth Once per day. 30 tablet 5 06/30/20 24 025 Discontinued(Re order (will not trigger notification to Pharmacy)) cyclobenzaprine (Flexeril) 10 MG tabletIndicatio ns:Low back pain at multiple sites Take 1 tablet (10 mg) by mouth if needed in the morning, at noon, and at bedtime for muscle spasms (for back pain) for up to [address] with medicaion 20 tablet 11/11/19 25 025 Discontinued ibuprofen 800 MG tablet TAKE 1 TABLET(800 MG) BY MOUTH THREE TIMES DAILY 90 tablet 02/29/20 25 025 Discontinued(Re order (will not trigger notification to Pharmacy)) Active Problems Problem Noted Date Diagnosed Date Cardiomyopathy 12/02/2024 Overview (12/02/2024): ECHO 11/29/2024: Conclusions: - The left ventricular systolic function is mildly decreased. The visually estimated ejection fraction is between 45-50%. - No obvious valvular pathology seen on this study. Anxiety disorder, unspecified 11/11/2024 TIA (transient ischemic [...] of colonoscopy 10/14/2022 Overview (10/14/2022): [place] [facility] [place]. He was recommended to repeat in 10 years Shoulder pain 08/18/2017 Joint pain 12/21/2015 Chronic pain 04/27/2015 Overview (10/14/2022): Also goes [place] [facility] [place] HTN (hypertension) 04/27/2015 Assessment & Plan (08/21/2023 9:30 PM EST): Initial and repeat BP elevated in office, however readings overall controlled at home Asymptomatic, no red flag symptoms Upon further discuss w/ pt, he has been checking BP readings BEFORE taking medication for hypertension. Recommended that he check reading 1 hour AFTER taking BP medication. Reviewed proper technique for checking BP at home. Plan: continue lisinopril 10mg daily, return precautions and ED precautions reviewed Encouraged to continue with lifestyle interventions including [...] Encounters Date Type Department Care Team Description 06/29/2025 Refill [facility] MEDICINE [address] [place] [address] [place], [place], [facility] Viral upper respiratory infection 06/29/2025 Refill [facility] MEDICINE [address] [place] [address] Wali Magallanes MD Low back pain at multiple sites; Viral upper respiratory infection 06/22/2025 Refill [facility] MEDICINE [address] [place] [address] Wali Magallanes MD from Last 3 Months Immunizations Immunization Administration Dates Next Due Influenza injectable quadriv [...] 112 11/11/2024 10:15 AM EST Temperature 36.7 C (98 F) 11/11/2024 10:15 AM EST Respiratory Rate 21 11/11/2024 10:15 AM EST Oxygen Saturation 98% 11/11/2024 10:15 AM EST Inhaled Oxygen Concentration - - Weight 82.2 kg (181 lb 3.2 oz) 11/11/2024 10:15 AM EST Height 182.9 cm (6') 11/11/2024 10:15 AM EST Body Mass Index 24.58 11/11/2024 10:15 AM EST Plan of Treatment Health Maintenance Due Date Last Done Comments CT Colonography 1963 FIT DNA/Cologuard 1963 FIT 1963 FOBT 1963 HIV Screening 1963 Sigmoidoscopy 1963 Disability Screening 1963 Alcohol/Substance Use Screening 1975 Pneumococcal Vaccine: 50+ Years (1 of 1 - PCV) 2013 Zoster Vaccines (1 of 2) 2013 RSV Patients and Patients Aged 60 years or older (1 - Risk 60-74 years 1-dose series) 2023 Colonoscopy 10/25/2024 10/25/2014 Colorectal Cancer Screening 10/25/2024 SDOH Screening 10/29/2024 10/29/2023 COVID-19 Vaccine (2024- season) 2025 01/25/2021, 12/26/2020 Influenza Vaccine (#1) 2025 , 08/08/2021, 06/30/2020, Additional history exists Depression Screening 11/11/2025 11/11/2024, 11/11/19 25 Tobacco Screening 11/11/2025 11/11/2024 DTaP/Tdap/Td Vaccines (2 - Td or Tdap) 06/10/2028 06/10/2018, 03/29/2013 Lipid Panel 11/16/2028 11/17/2023, 09/17, 11/02/2021, Additional history exists Hepatitis C Screening Completed 10/28/2022 HIB Vaccines Aged Out No longer eligi [...] Procedure Name Priority Date/Time Associated Diagnosis Comments LIPID PANEL, STANDARD Routine 11/17/2023 8:06 AM EST Screening for cholesterol level HEPATITIS C AB W/REFL TO HCV RNA, QN, PCR Routine 10/28/2022 8:03 AM EST Hyperkalemia Transaminitis HM COLONOSCOPY Routine 10/25/2014 8:52 AM EST from Last 3 Months or Most Recently Relevant to Health Maintenance Results * (ABNORMAL) Lipid Panel, Standard (11/17/2023 8:06 AM EST) Triglycerides 64 <150 mg/dL [facility] Comment:Desirable Triglyceri de: less than 150 mg/dLBorderline High Triglyceride 150-199 mg/dLHigh Triglyceride: 200-499 mg/dLVery High Triglyceride: greater than or equal to 5OO mg/dL Cholesterol 174 <200 mg/dL [facility] Comment:Desirable Cholestero l: less than 200 mg/dLBorderline High Cholesterol: 200-239 mg/dLHigh Cholesterol: greater than 239 mg/dL LDL Cholesterol Calculated 103(H) <100 mg/dL [facility] Comment:Desirable LDL: less than 100 mg/dLNear Optimal/Above Optimal LDL: 110- 129 mg/dLBorderline High LDL: 130-159 mg/dLHigh LDL: 160-189 mg/dLVery High LDL: greater than or equal to 190 mg/dL HDL Cholesterol 59 >40 mg/dL [facility] Comment:Desirable HDL: great er than 40 mg/dL Note: This HDL assay may give artificially low results in patients with liver disease. Blood Venous blood specimen / Unknown 11/17/2023 8:06 AM EST 11/17/2023 11:25 AM EST us Wali Magallanes MD LAB BLOOD ORDERABLES Final Resul t [facility] [address] [place] [address] [phone] * Hepatitis C Antibody with Reflex to HCV, RNA, Quantitative, Real-Time PCR (10/28/2022 8:03 AM EST) Hepatitis C Antibody NON-REACT ALEN NON-REACT ALEN [facility] Index 0.04 <1.00 [facility] Comment: HCV antibody was non-reactive. There is no laboratory evidence of HCV infection. In most cases, no further action is required. However, if recent HCV exposure is suspected, a test for HCV RNA (test code 43339) is suggested. For additional information please refer to http://education.DermLink/faq/LGH70v7 (This link is being provided for informational/ educational purposes only.) Blood Venous blood specimen / Unknown 10/28/2022 8:03 AM EST 10/28/2022 8:03 AM EST Narrative [facility] - 10/28/2022 10:47 PM EST FASTING:YES FASTING: YES Wali Name LAB BLOOD ORDERABLES Final Resul t [facility] [address], [place] [address] [facility] [address] [facility], ([address]) [place] [address] * Hm Colonoscopy (10/25/2014 8:52 AM EST) Pathologist [facility] Colonoscopy Normal Normal Narrative Yasmeen Christensen - 10/25/2014 8:52 AM EST Recommended 10 year follow up Historical Provider HEALTH MAINTENANCE Final Result from Last 3 Months or Most Recently Relevant to Health Maintenance Insurance [facility] < 65 Care Teams Cdl Program Coordinator Relationship Specialty Start Date End Date Name, MD Wali [address] [place] [phone] PCP - General Family Medicine 12/21/15
--- OUTSIDE RECORDS SUMMARY | 2025-07-06 10:48 | XMS_ITS | Encounter Summary ---
Author Organization [employer] Address 75 [facility] 7t [place] [address] Care Team Providers Care Hog Man Name Role Phone Name, Wali PEARL Primary Care Provider [phone] Reason for Visit * Reason Onset Date Comments Nurse Triage 08/22/2023 Encounter Details Date Type Department Care Team ([facility] st Contact Info) Description 08/22/2023 Telephone [facility] MEDICINE [address] [place], [place] [phone] Name, MD Wali [address] [place] [address] Nurse Triage Social History Tobacco Use Types [...] 1:27 PM EST T/C to pt. Through Ad[employer] id - [id number] for below message, pt. Also advised to [...] elevated BP of 161/100. Pt went to [facility] and [facility] and due to long wait [...] provider. Pt advised of NTTS services and resource paraprofessional provider availability. Davion Dao also given contact [...] review and further advise team nurses of [facility] for HTN management. Future Appointments Date Time Provider Department Center 10/02/2023 10:30 AM Wali Magallanes MD MEDICINE [facility] Protocol Used: Blood Pressure - High [...] MG tablet Instead of 1 as directed. Tajik Speaker documented in this encounter Plan of Treatment Not on file documented as of this encounter Visit Diagnoses Not on filedocumented in this encounter Care Teams Hog Man Relationship Specialty Start Date End Date Name, MD Wali [address] [place] [id number] PCP - General Family Medicine 12/21/15 documented as of this encounter
--- OUTSIDE RECORDS SUMMARY | 2025-07-06 10:48 | XMS_ITS | Encounter Summary ---
Author Organization [employer] Address [address] [facility] 7t [place] [address] Care Team Providers Care Tip Cementer Name Role Phone Name, Wali PEARL Primary Care Provider Reason for Visit * Reason Comments Med Refill Encounter Details Date Type Department Care Team (Late st Contact Info) Description 02/06/2023 Refill [facility] MEDICINE [address] [place] [address] Name, MD Wali [address] [place] [address] Social History Tobacco Use Types Packs/Day Years [...] on filedocumented in this encounter Care Teams Tip Cementer Relationship Specialty Start Date End Date Name, MD Wali [address] [place] [address] PCP - General Family Medicine 12/21/15 documented as of this encounter
--- OUTSIDE RECORDS SUMMARY | 2025-07-06 10:48 | XMS_ITS | Encounter Summary ---
Author Organization [email or web address] Address [address] [facility] 7t [place] [address] Care Team Providers Care Director Security Management Name Role Phone Name, Wali PEARL Primary Care Provider [phone] Encounter Details Date Type Department Care Team (Late st Contact Info) Description 02/17/2023 Abstract [facility] MEDICINE [address] [place], [place] [phone] Name, MD Wali [address] [place] [address] Social History Tobacco Use Types Packs/Day Years [...] on file documented as of this encounter Procedures Procedure [...] on filedocumented in this encounter Care Teams Director Security Management Relationship Specialty Start Date End Date Name, MD Wali [address] [place] [address] PCP - General Family Medicine 12/21/15 documented as of this encounter
== END ==
LOC: HO.CARD 09:28
PROVIDERS: PCP Internal Medicine Geriatric Medicine; Visit Provider Internal Medicine Cardiovascular Disease
DX: I42.9 Cardiomyopathy, unspecified (principal); R55 Syncope and collapse; Z79.899 Other long term (current) drug therapy
CPT/HCPCS: 78452; 93017; 93242; A9500; J0280; J2785

== ENCOUNTER → 2025-07-06 09:32 | Outpatient (BNV) | payer OTHER, SELFPAY | PROVIDERS: PCP Internal Medicine Geriatric Medicine | DX: I42.8 Other cardiomyopathies (principal) | CPT/HCPCS: 78452; 93016; 93018 ==

== ENCOUNTER 2025-07-20 12:43 | Outpatient (AMB) | payer OTHER, SELFPAY ==
--- NOTE | 2025-07-20 13:36 | A.OFFVIS_ITS ---
Vital Signs 07/20/25 13:37 Height 6 ft 1 in Weight 186 lb 1.122 oz BMI 24.5 BP 124/78 Blood Pressure Location Lt brachial Position Sitting Pulse 69 Pulse Source Pulse Oximeter Intake Visit Reasons: 6-8 wk s/p nuc NS Maintenance Director Required: Yes Maintenance Director Services: Maintenance Director Offered & Declined Accompanied by: son Allergies No Known Allergies Allergy (Verified 07/20/25 13:39) Medication List - Last Reconciled 07/20/25 by Vladislav Hua NP lisinopril 20 mg PO DAILY metoprolol succinate ER (Toprol XL) 50 mg PO DAILY naproxen 800 mg PO DAILY PRN HPI Comments Details: This is a 60-year-old male patient coming in for a follow-up visit accompanied by his son who helped with interpretation throughout the visit. Patient was previously seen in the office for mild cardiomyopathy that was done for concerns of lightheadedness back in September of 2024 where patient had a syncopal episode. Patient has undergone a stress test and a Holter study and is here to review the results with the his. Patient is reporting compliance with all his medications and is denying any concerns of chest pain, shortness breath, palpitations, dizziness, orthopnea, PND, leg edema, presyncope, or syncope. COUNTS INCLUDE 234 BEDS AT THE [facility] Surgical History History of back surgery Family History Father No problems noted. Mother HTN (hypertension) Social History Patient Tobacco Use Status: Never used Tobacco Review of Systems Const Denies daytime sleepiness, Denies difficulty sleeping, Denies snoring, Denies stops breathing during sleep and Denies weakness Card Denies chest pain, Denies rapid heart rate, Denies irregular heart rhythm, Denies claudication, Denies leg edema, Denies lightheadedness, Denies palpitations, Denies dyspnea, Denies dyspnea on exertion, Denies orthopnea, Denies paroxysmal nocturnal dyspnea and Denies slow heart rate Resp Denies cough, Denies dyspnea, Denies dyspnea on exertion and Denies snoring GI Reports no additional complaints, Denies hematochezia, Denies change in stool character and Denies dyspepsia Musc Denies abnormal gait, Denies muscle weakness and Denies numbness Neuro Denies abnormal gait, Denies numbness and Denies weakness Endo Denies palpitations Physical Exam Vital Signs: Last Vital Signs Pulse 69 07/20/25 13:37 BP 124/78 07/20/25 13:37 BMI result Body Mass Index 24.5 Const General: cooperative, healthy appearing, comfortable and no acute distress Orientation/consciousness: patient oriented x3 HEENT Head: Yes normal to inspection Neck Neck: Yes normal visual inspection, Yes trachea midline and Yes supple Chest Chest palpation & inspection: normal inspection of the chest Resp Effort & Inspection: normal respiratory effort Auscultation: clear to auscultation bilaterally, no crackles, no rales, no rhonchi and no wheezes Cardio Jugular venous distension: no JVD Palpation: normal PMI Rate: regular rate Rhythm: regular rhythm Heart sounds: S1 normal heart sound present, S2 normal heart sound present, no click, no gallops, no murmurs and no rubs Peripheral pulses: Peripheral pulses 2+ throughout GI Inspection: Yes normal to inspection Palpation (GI): Soft to palpation Auscultation: normal bowel sounds Skin General skin exam: no rashes or lesions noted Neuro General: patient oriented x3 Extrem General: Yes normal to inspection, No no pedal edema and No calf tenderness Psych Appearance: grossly normal Mental Status: mental status grossly normal Speech and movement: Normal speech and movement present Assessment & Plan Assessment & Plan (1) Cardiomyopathy: Code(s): I42.9 - Cardiomyopathy, unspecified Category: Medical Plan: 11/29/2024-echo study had showed mildly decreased LV systolic function with the ejection fraction between 45-50%. 07/06/2025-patient underwent a Holter study that showed baseline sinus rhythm with rare PVCs and PACs. 07/06/2025-myocardial perfusion study showed likely normal myocardial perfusion. Clinically euvolemic and stable. Continue lisinopril and metoprolol therapy. Discussed in detail about benefits of neurohormonal guided medical therapy. Patient would like to repeat an echo before adding any new medications. We will get this time before his next visit. Advised on heart healthy diet, low sodium diet, daily weight monitoring, and compression socks as needed. Discussed signs and symptoms to watch for with heart failure. Discussed about NSAIDs and its effect on heart failure patient's. Advised using topical NSAIDs or Tylenol for pain management. Patient verbalizes understanding. (2) HTN (hypertension): Code(s): I10 - Essential (primary) hypertension Category: Medical Plan: Blood pressure today is well-controlled. Continue current regimen with a blood pressure goal less than 130/80. Advised monitoring blood pressures at home and maintaining a log. Advised heart healthy diet, regular exercise, med compliance, and management of vascular risk factors. Follow up in 3 months. In the interim, patient will call the office with any concerns or change in symptoms. This note was generated using voice recognition software. While every effort has been made to ensure accuracy and proper balance bridge assembler, there may be occasional errors that could affect the content or meaning of the described symptoms. Orders: Orders CA echo transthoracic complete Today I42.9 - Cardiomyopathy, unspecified Coding Level of Care Code Est Pt Level 4 (55072) Complex EM visit Add On G2211 Diagnoses Cardiomyopathy I42.9 HTN (hypertension) I10 Time Spent (min) 32 Comment Time spent in reviewing the chart, test results, assessment, counseling and documentation.
[2025-07-20 13:37] VITALS: BP 124/78; PULSE 69; BMI 24.5
--- OUTSIDE RECORDS SUMMARY | 2025-07-20 15:20 | XMS_ITS | Encounter Summary ---
Author Organization [employer] Address [address] [facility] [address] [place] [address] Care Team Providers Care Echocardiography Radiology Technologist Name Role Phone Name, Wali PEARL Primary Care Provider [phone] Reason for Visit * Reason Comments Med Refill Encounter Details Date Type Department Care Team ([facility] st Contact Info) Description 08/17/2024 Refill [facility] MEDICINE [address] [place] [address] Name, MD Wali [address] [place], [place] [phone] Social History Tobacco Use Types Packs/Day Years [...] documented as of this encounter Care Teams Echocardiography Radiology Technologist Relationship Specialty Start Date End Date Name, MD Wali [address] [place] [address] PCP - General Family Medicine 12/21/15 documented as of this encounter
--- OUTSIDE RECORDS SUMMARY | 2025-07-20 15:20 | XMS_ITS | Encounter Summary ---
Author Organization [employer] Address [address] [facility] [address] [place] [address] Care Team Providers Care Emergency Medcl Emt Name Role Phone Name, Wali PEARL Primary Care Provider [phone] Reason for Visit * Reason Onset Date Comments Nurse Triage 04/22/2024 Encounter Details Date Type Department Care Team ([facility] st Contact Info) Description 04/22/2024 Telephone [facility] MEDICINE [address] [place], [place] [phone] Name, MD Wali [address] [place] [address] Nurse Triage Social History Tobacco Use Types [...] ER precautions andreasons to call back. Reviewed [facility] operating hours and that wait times [...] documented as of this encounter Care Teams Emergency Medcl Emt Relationship Specialty Start Date End Date Name, MD Wali [address] [place] [address] PCP - General Family Medicine 12/21/15 documented as of this encounter
--- OUTSIDE RECORDS SUMMARY | 2025-07-20 15:20 | XMS_ITS | Encounter Summary ---
Author Organization [employer] Address [address] [facility] [address] [place] [address] Care Team Providers Care Discharge Coordinator Name Role Phone Name, Wali PEARL Primary Care Provider [phone] Encounter Details Date Type Department Care Team (Late st Contact Info) Description 09/26/2022 Orders Only [facility] MEDICINE [address] [place] [address] Olimpia Thomas LPN Social History Tobacco Use [...] on filedocumented in this encounter Care Teams Discharge Coordinator Relationship Specialty Start Date End Date Name, MD Wali [address] [place] [address] PCP - General Family Medicine 12/21/15 documented as of this encounter
--- OUTSIDE RECORDS SUMMARY | 2025-07-20 15:20 | XMS_ITS | Encounter Summary ---
Author Organization [employer] Address [address] [facility] [address] [place] [address] Care Team Providers Care Pan Shaker Name Role Phone Name, Wali PEARL Primary Care Provider [phone] Reason for Visit * Reason Onset Date Comments Nurse Triage 10/05/2024 Encounter Details Date Type Department Care Team ([facility] st Contact Info) Description 10/05/2024 Telephone [facility] MEDICINE [address] [place], [place] [phone] Name, MD Wali [address] [place] [address] Nurse Triage Social History Tobacco Use Types [...] his interpret for him not one of [facility] staff. Ptstates that he has been [...] accepted this outcome. Contact pt Spouse at [phone] documented in this encounter Plan of Treatment Not on file documented as of this encounter Visit Diagnoses Not on filedocumented in this encounter Additional Health Concerns Assessment Noted Time PHQ-9 Depression Total Score: 0 02/26/20 24 10:14 AM EST documented as of this encounter Care Teams Pan Shaker Relationship Specialty Start Date End Date Name, MD Wali [address] [place] [address] PCP - General Family Medicine 12/21/15 documented as of this encounter
--- OUTSIDE RECORDS SUMMARY | 2025-07-20 15:20 | XMS_ITS | Encounter Summary ---
Author Organization [employer] Address [address] [facility] [address] [place] [address] Care Team Providers Care Oil Well Engineer Name Role Phone Name, Wali PEARL Primary Care Provider [phone] Reason for Visit * Reason Onset Date Comments Results 08/04/2024 Medication Question 08/04/2024 Encounter Details Date Type Department Care Team ([facility] st Contact Info) Description 08/04/2024 Telephone [facility] MEDICINE [address] [place] [address] Name, MD Wali [address] [place] [address] Results; Medication Question Social History Tobacco Use [...] results: swab Date when done: 08/03/24 Facility: [facility] walk in Pt would like to know if medication can be prescribe. documented in this encounter Plan of Treatment Not on file documented as of this encounter Visit Diagnoses Not on filedocumented in this encounter Additional Health Concerns Assessment Noted Time PHQ-9 Depression Total Score: 0 11/10/19 10:14 AM EST documented as of this encounter Care Teams Oil Well Engineer Relationship Specialty Start Date End Date Name, MD Wali [address] [place] [address] PCP - General Family Medicine 12/21/15 documented as of this encounter
--- OUTSIDE RECORDS SUMMARY | 2025-07-20 15:21 | XMS_ITS | Encounter Summary ---
Author Organization [employer] Address [address] [facility] [address] [place] [address] Care Team Providers Care Instrumentation Controls Engineer Name Role Phone Name, Wali PEARL Primary Care Provider [phone] Reason for Visit * Reason Comments Med Refill Encounter Details Date Type Department Care Team (Late st Contact Info) Description 02/06/2023 Refill [facility] MEDICINE [address] [place] [address] Name, MD Wali [address] [place] [address] Social History Tobacco Use Types Packs/Day Years [...] on filedocumented in this encounter Care Teams Instrumentation Controls Engineer Relationship Specialty Start Date End Date Name, MD Wali [address] [place] [address] PCP - General Family Medicine 12/21/15 documented as of this encounter
--- OUTSIDE RECORDS SUMMARY | 2025-07-20 15:21 | XMS_ITS | Encounter Summary ---
Author Organization [employer] Address [address] [facility] [address] [place] [address] Care Team Providers Care Automotive Worker Foreman Name Role Phone Name, Wali PEARL Primary Care Provider [phone] Encounter Details Date Type Department Care Team (Late st Contact Info) Description 02/17/2023 Abstract [facility] MEDICINE [address] [place], [place] [phone] Name, MD Wali [address] [place] [address] Social History Tobacco Use Types Packs/Day Years [...] filedocumented in this encounter Care Teams Automotive Worker Foreman Relationship Specialty Start Date End Date Name, MD Wali [address] [place] [address] PCP - General Family Medicine 12/21/15 documented as of this encounter
--- OUTSIDE RECORDS SUMMARY | 2025-07-20 15:21 | XMS_ITS | Clinical Summary ---
Author Organization [employer] Address [address] [facility] [address] [place] [address] Care Team Providers Care Water Resources Program Director Name Role Phone Name, Wali PEARL Primary Care Provider [phone] Allergies No known active allergies Medications * [...] of colonoscopy 10/14/2022 Overview (10/14/2022): Normal at [facility] 10/2014. He was recommended to repeat in 10 years Shoulder pain 08/18/2017 Joint pain 12/21/2015 Chronic pain 04/27/2015 Overview (10/14/2022): Also goes to [facility] pain management clinic HTN (hypertension) 04/27/2015 Assessment [...] Encounters Date Type Department Care Team Description 07/06/2025 Orders Only [facility] External Provider, [facility] 06/29/2025 Refill [facility] MEDICINE [address] [place] [address] [place], [place], [facility] Viral upper respiratory infection 06/29/2025 Refill [facility] MEDICINE [address] [place] [address] Wali Magallanes MD Low back pain at multiple sites; Viral upper respiratory infection 06/22/2025 Refill [facility] MEDICINE [address] [place] [address] Wali Magallanes MD from Last 3 Months [...] 10/25/2024 SDOH Screening 10/29/2024 10/29/2023 COVID-19 Vaccine (3 - 2024- season) 2025 01/25/2021, 12/26/2020 Influenza Vaccine (#1) [...] Procedure Name Priority Date/Time Associated Diagnosis Comments NM HEART PERFUSION SPECT STRESS AND REST Routine 07/06/2025 10:38 AM EDT LIPID PANEL, STANDARD Routine 11/17/2023 8:06 AM EST Screening for cholesterol level HEPATITIS C AB W/REFL TO HCV RNA, QN, PCR Routine 10/28/2022 8:03 AM EST Hyperkalemia Transaminitis HM COLONOSCOPY Routine 10/25/2014 8:52 AM EST from Last 3 Months or Most Recently Relevant to Health Maintenance Results * NM heart perfusion SPECT stress and rest (07/06/2025 10:38 AM EDT) Anatomical Region Laterality Modality Body Nuclear Medicine 07/06/2025 10:3 8 AM EDT Narrative 07/08/2025 2:47 PM EDT [place] [address] Nuclear Medicine Report Signed Patient: Davion Dao MR#: [id number] 0 : 1965 Acct:[id number] Age/Sex: 60 / M ADM Date: 07/06/25 Loc: [facility] Attending Dr: Roldan Charles MD Ordering Physician: Roldan Charles MD Date of Service: 07/06/25 Procedure(s): NM angie perf SPECT rest str Accession Number(s): [id number] cc: Wali Magallanes MD; Roldan Charles MD Reason for Exam: CARDIOMYOPATHY LEXISCAN Lexiscan Myocardial perfusion study Indication: Cardiomyopathy to evaluate for myocardial ischemia Technique: The patient was brought in for a Lexiscan perfusion study on 07/06/2025 and was injected 0.4 mg of Lexiscan intravenously. Within a minute of this injection 25 mCi of sestamibi was given intravenously. Images were obtained using the SPECT gamma camera interlaced with the gating device. Images were obtained in supine position. Resting perfusion study was performed on 07/07/2025. Patient was administered 25 mCi of sestamibi intravenously at rest. Images were then obtained in supine position. Images obtained without without CT attenuation. Total DLP 80 mGy-cm. Images were processed with the software and compared side to side in short axis, horizontal long axis and vertical long axis views. Findings: The stress perfusion study showed nonattenuated images show mildly reduced uptake in the mid to basal inferior and inferolateral wall of the LV myocardium. Remainder of the LV myocardium is normally perfused. Attenuated corrected images show normal uptake ordered images in all segments of the LV myocardium.. The gated study shows normal LV systolic function with calculated LVEF of 63%. LV cavity is mildly dilated in size. The gated study shows normal systolic wall thickening and contraction of segments. Resting study shows both nonattenuated attenuated corrected images show normal uptake ordered images in all segments of the myocardium. Gating at rest reveals normal systolic wall motion with ejection fraction at 55%. The findings are consistent with no clear reversible defect noted on attenuated corrected images. Likely normal myocardial perfusion. NM/NM anige perf SPECT rest str Impression: 1. Myocardial perfusion imaging study shows likely normal myocardial perfusion 2. Gated LVEF is 63% 3. Transient ischemic dilatation not present Nondiagnostic changes on EKG. Electronically signed by: Roldan Charles MD 07/08/2025 02:44 PM EDT Dictated By: Roldan Charles MD Signed By: <Electronically signed by Roldan Charles MD in OV> 07/08/25 1444 DD/ 1038 TD/TT: 07/07/25 1345 Jigsaw Operator: Procedure Note Donotuseinterpreter, Image - 07/08/[address] [address] Nuclear Medicine Report Signed Patient: Davion DaoMR#: [id number] 0 : 1965Acct:[id number] Age/Sex: 60 / MADM Date: 07/06/25 Loc: [facility] Attending Dr: Roldan Charles MD Ordering Physician: oRldan Charles MD Date of Service: 07/06/25 Procedure(s): NM angie perf SPECT rest str Accession Number(s): [id number] cc: Name,Wali PEARL; Roldan Charles MD Reason for Exam: CARDIOMYOPATHY LEXISCAN Lexiscan Myocardial perfusion study Indication: Cardiomyopathy to evaluate for myocardial ischemia Technique: The patient was brought in for a Lexiscan perfusion study on 07/06/2025 and was injected 0.4 mg of Lexiscan intravenously. Within a minute of this injection 25 mCi of sestamibi was given intravenously. Images were obtained using the SPECT gamma camera interlaced with the gating device. Images were obtained in supine position. Resting perfusion study was performed on 07/07/2025. Patient was administered 25 mCi of sestamibi intravenously at rest. Images were then obtained in supine position. Images obtained without without CT attenuation. Total DLP 80 mGy-cm. Images were processed with the software and compared side to side in short axis, horizontal long axis and vertical long axis views. Findings: The stress perfusion study showed nonattenuated images show mildly reduced uptake in the mid to basal inferior and inferolateral wall of the LV myocardium. Remainder of the LV myocardium is normally perfused. Attenuated corrected images show normal uptake ordered images in all segments of the LV myocardium.. The gated study shows normal LV systolic function with calculated LVEF of 63%. LV cavity is mildly dilated in size. The gated study shows normal systolic wall thickening and contraction of segments. Resting study shows both nonattenuated attenuated corrected images show normal uptake ordered images in all segments of the myocardium. Gating at rest reveals normal systolic wall motion with ejection fraction at 55%. The findings are consistent with no clear reversible defect noted on attenuated corrected images. Likely normal myocardial perfusion. NM/NM angie perf SPECT rest str Impression: 1. Myocardial perfusion imaging study shows likely normal myocardial perfusion 2. Gated LVEF is 63% 3. Transient ischemic dilatation not present Nondiagnostic changes on EKG. Electronically signed by: Roldan Charles MD 07/08/2025 02:44 PM EDT Dictated By: Roldan Charles MD Signed By: <Electronically signed by Roldan Charles MD in OV> 07/08/25 1444 DD/ 1038 TD/TT: 07/07/25 1345 Jigsaw Operator: [facility] External Provider IMG NM PROCEDURES Final Result * (ABNORMAL) Lipid Panel, Standard (11/17/2023 8:06 AM EST) Triglycerides 64 <150 mg/dL [facility] Comment:Desirable Triglyceri de: less than 150 mg/dLBorderline High Triglyceride 150-199 mg/dLHigh Triglyceride: 200-499 mg/dLVery High Triglyceride: greater than or equal to 5OO mg/dL Cholesterol 174 <200 mg/dL [facility] Comment:Desirable Cholestero l: less than 200 mg/dLBorderline High Cholesterol: 200-239 mg/dLHigh Cholesterol: greater than 239 mg/dL LDL Cholesterol Calculated 103(H) <100 mg/dL [facility] Comment:Desirable LDL: less than 100 mg/dLNear Optimal/Above Optimal LDL: 110- 129 mg/dLBorderline High LDL: 130-159 mg/dLHigh LDL: 160-189 mg/dLVery High LDL: greater than or equal to 190 mg/dL HDL Cholesterol 59 >40 mg/dL [facility] Comment:Desirable HDL: great er than 40 mg/dL Note: This HDL assay may give artificially low results in patients with liver disease. Blood Venous blood specimen / Unknown 11/17/2023 8:06 AM EST 11/17/2023 11:25 AM EST Wali Magallanes MD LAB BLOOD ORDERABLES Final Resul t [facility] [address] [place] [phone] * Hepatitis C Antibody with Reflex to HCV, RNA, Quantitative, Real-Time PCR (10/28/2022 8:03 AM EST) Hepatitis C Antibody NON-REACT ALEN NON-REACT ALEN [facility] [place] [facility] Index 0.04 <1.00 [facility] [place] [facility] Comment: HCV antibody was non-reactive. There is no laboratory evidence of HCV infection. In most cases, no further action is required. However, if recent HCV exposure is suspected, a test for HCV RNA (test code 94434) is suggested. For additional information please refer to http://education.Discoverly/faq/GWZ85t5 (This link is being provided for informational/ educational purposes only.) Blood Venous blood specimen / Unknown 10/28/2022 8:03 AM EST 10/28/2022 8:03 AM EST Narrative [facility] - 10/28/2022 10:47 PM EST FASTING:YES FASTING: YES Wali Name LAB BLOOD ORDERABLES Final Resul t [facility] [address] [facility], [place] [address] [facility] [address], ([address]) [place] [address] * Hm Colonoscopy (10/25/2014 8:52 AM EST) Colonoscopy Normal Normal Narrative Yasmeen Christensen - 10/25/2014 8:52 AM EST Recommended 10 year follow up Historical Provider HEALTH MAINTENANCE Final Result from Last 3 Months or Most Recently Relevant to Health Maintenance Insurance [id number] CARE < 63 [place] [id number] Care Teams Water Resources Program Director Relationship Specialty Start Date End Date Name, MD Wali [address] [place] [address] PCP - General Family Medicine 12/21/15
--- OUTSIDE RECORDS SUMMARY | 2025-07-20 15:21 | XMS_ITS | Encounter Summary ---
Author Organization [employer] Address [address] [facility] 7t [place] [address] Care Team Providers Care Yarn Comber Name Role Phone Name, Wali PEARL Primary Care Provider [phone] Reason for Visit * Reason Onset Date Comments Nurse Triage 08/22/2023 Encounter Details Date Type Department Care Team ([facility] st Contact Info) Description 08/22/2023 Telephone [facility] MEDICINE [address] [place], [place] [phone] Name, MD Wali [address] [place] [address] Nurse Triage Social History Tobacco Use Types [...] 1:27 PM EST T/C to pt. Through [employer] id - [id number] for below message, pt. Also advised to [...] elevated BP of 161/100. Pt went to [facility] and [facility] and due to long wait times [...] provider. Pt advised of NTTS services and regional loss prevention manager provider availability. Davion Dao also given contact [...] review and further advise team nurses of [facility] for HTN management. Future Appointments Date Time Provider Department Center 10/02/2023 10:30 AM Wali Magallanes MD MEDICINE [facility] Protocol Used: Blood Pressure - [...] MG tablet Instead of 1 as directed. Icelandic Speaker documented in this encounter Plan of Treatment Not on file documented as of this encounter Visit Diagnoses Not on filedocumented in this encounter Care Teams Yarn Comber Relationship Specialty Start Date End Date Name, MD Wali [address] [place] [id number] PCP - General Family Medicine 12/21/15 documented as of this encounter
== END 2025-07-20 14:14 | disposition home or self-care (01) ==
LOC: HO.HCS 12:44
PROVIDERS: PCP Internal Medicine Geriatric Medicine
DX: I42.9 Cardiomyopathy, unspecified (principal); I10 Essential (primary) hypertension
CPT/HCPCS: 99214; G2211

== ENCOUNTER → 2025-07-20 12:43 | Outpatient (BNVA) | payer OTHER, SELFPAY | PROVIDERS: PCP Internal Medicine Geriatric Medicine | DX: I10 Essential (primary) hypertension (principal); I42.9 Cardiomyopathy, unspecified | CPT/HCPCS: 99212 ==

== ENCOUNTER → 2025-08-18 12:24 | Outpatient (REF) | payer OTHER, SELFPAY ==
--- NOTE | 2025-08-18 12:27 | CA_ITS ---
Transthoracic Echocardiogram Patient (Last, First, Middle): Davion Dao, Gender: Male Date of : 1965 Age: 60 Procedure Date: 08/18/2025 Procedure Type: Transthoracic Echocardiogram Location: OP Height: 185.42 cm Weight: 84.37 kg BSA: 2.09 m2 Heart Rate: bpm BP: 140 / 88 mmHg Metal Finisher: TO Referring MD: Vladislav Hua NP Symptoms: I42.9 - Cardiomyopathy, unspecified Study Quality: Adequate ECG Rhythm: Sinus Conclusions: - The left ventricular systolic function is low normal. The visually estimated ejection fraction is between 50-55%. - No obvious valvular pathology seen on this study. Findings Left Ventricle Normal left ventricular cavity size. There is normal left ventricular wall thickness. The left ventricular systolic function is low normal. The visually estimated ejection fraction is between 50-55%. There is no evidence of regional wall motion abnormalities. Diastolic function is normal for age. Peak GLS -17.4% (borderline decreased). Right Ventricle Normal right ventricular cavity size and systolic function. Atria Both atria are normal in size. Aortic Valve There is a normal trileaflet aortic valve. There is no aortic valve stenosis. There is no aortic valve regurgitation. Mitral Valve The mitral valve appears normal. There is no mitral valve regurgitation. There is no mitral valve stenosis. Pulmonic Valve The pulmonic valve is likely normal. Tricuspid Valve There is trace tricuspid valve regurgitation. There is no evidence of pulmonary hypertension. Great Vessels The asc aorta and aortic arch are normal in size. Venous The inferior vena cava is normal in size and collapses greater than 50% with inspiration. Pericardium/Pleural There is no evidence of pericardial effusion. Prior Study Comparison Changes noted compared to prior study dated: 11/29/2024. Slightly improved LVEF. Recommendations, Care & Conclusions No obvious valvular pathology seen on this study. Measurements 2D Linear Measurements IVSd: 0.88 0.6-0.9/0.6-1.0 cm LVIDd: 4.59 3.9-5.3/4.2-5.9 cm LVIDd Index: 2.20 2.4-3.2/2.2-3.1 cm/m2 LVIDs: 3.38 2.0-3.6 cm LVPWd: 0.73 0.7-1.1 cm LA Diam: 3.30 2.7-3.8/3.0-4.0 cm LAIDs Index: 1.58 1.5-2.3 cm/m2 LV Mass: 146.81 67-162/88-224 g LV Mass Index: 70.24 43-95/49-115 g/m2 LVOT Diam: 2.30 3.0+(-)1.3 cm 2D Systolic Function EF 4C: 54.40 >55% EF 2C: 54.70 >55% EF BiP: 54.50 >55% Mitral Valve MV Pk E: 0.46 MV PK A: 0.60 MV Decel Time: 289.00 E/A: 0.80 E'Lateral: 9.36 E'Medial: 5.87 E/E' Med: 7.90 E/E' Lat: 4.90 PHT: 85.00 MVA PHT: 2.59 Decel Bartholomew: 1.60 Aortic Valve AoV Pk Raúl: 1.35 AoV Mn Raúl: 1.00 AoV VTI: 0.27 AoV Pk Grad: 7.00 Aov Mn Grad: 4.00 MAY Cont.VTI: 2.49 LVOT LVOT Pk Raúl: 0.79 LVOT Mn Raúl: 0.57 LVOT VTI: 0.16 LVOT Pk Grad: 2.00 LVOT Mn Grad: 1.00 LVOT Diam: 2.30 LVOT Area: 4.15 Diastolic Function MV Pk E: 0.46 MV Pk A: 0.60 E/A: 0.80 E'Medial: 5.87 E/E' Med: 7.90 E' Laterial: 9.36 E/E' Lat: 4.90 Right Ventricle TAPSE (mm): 26.00 TVS' Raúl: 12.10 Tricuspid Valve TR Pk Raúl: 2.24 TR Pk Grad: 20.00 RA Press: 3.00 RVSP: 23.00 Great Vessels Aorta Sinus of Valsalva: 3.13 2.0-3.5 cm Ao Asc: 3.30 2.1-3.4 cm Ao Arch: 3.00 Updated in Other Vendor System with Status of Final [place] Ron MD electronically signed on 08/19/2025 4:27:45 PM with status of Final
== END ==
LOC: HO.CARD 12:24
PROVIDERS: PCP Internal Medicine Geriatric Medicine
DX: I42.9 Cardiomyopathy, unspecified (principal)
CPT/HCPCS: 93306

== ENCOUNTER → 2025-08-18 12:27 | Outpatient (BNV) | payer OTHER, SELFPAY | PROVIDERS: PCP Internal Medicine Geriatric Medicine; Visit Provider Internal Medicine | DX: I42.9 Cardiomyopathy, unspecified (principal) | CPT/HCPCS: 93306; 93356 ==

== ENCOUNTER 2025-09-02 08:04 | Outpatient (REF) | payer OTHER, SELFPAY ==
--- OUTSIDE RECORDS SUMMARY | 2025-08-31 14:45 | XMS_ITS | Encounter Summary ---
Author Organization [employer] Address [address] [facility] 7t [place] [address] Care Team Providers Care Water Quality Control Engineer Name Role Phone Name, Wali PEARL Primary Care Provider [phone] Reason for Visit * Reason Comments Annual Exam Encounter Details Date Type Department Care Team ([facility] st Contact Info) Description 08/31/2025 2:45 PM EST Office Visit [facility] MEDICINE [address] [place], [place] [phone] Name, MD Wali [address] [place] [address] Hypertension, unspecified type (Primary Dx); Cardiomyopathy, unspecified type (CMS/HCC) (HCC); Screening for diabetes mellitus; Screening for cholesterol level; Encounter for immunization; Depression with anxiety; Jock itch Social History Tobacco Use Types Packs/Day Years Used Date Smoking Tobacco: Never Passive Smoke Exposure: Never Smokeless Tobacco: Never Alcohol Use Standard Drinks/Week Comments Never 0 (1 standard drink = 0.6 oz pur e alcohol) Alcohol Answer Date Recorded How often do you have a drink containing alcohol ? 0 08/31/2025 How many drinks containing a lcohol do you have on a typical day when you are drinking? 0 08/31/2025 How often do you have six or more drinks on one occasion? 0 08/31/2025 Depression Answer Date Recorded Patient Health Questionnaire-9 Score 7 11/11/2024 Patient Health Questionnaire-9 Score 7 11/11/2024 Last PHQ-9: Questionnaire Data Not on file 0 11/11/2024 Housing Stability Answer Date Recorded What is your housing situation today? I have codi velez 08/31/[address] you li ve. Do you have problems with any of the following? None of the above 08/31/2025 Food Insecurity Answer Date Recorded Within the past 12 months, y ou worried that your food would run out before you got money to buy more: Never True 08/31/2025 Within the past 12 months,th e food you bought just didn't last and you didn't have enough money to get more: Never True Transportation Answer Date Recorded In the past 12 months, has l ack of transportation kept you from medical appts, meetings, work or from getting things needed for daily living? No 08/31/2025 Utilities Answer Date Recorded In the past 12 months, has t he electric, gas, oil or water company threatened to shut off services in your home? No 08/31/2025 Depression Answer Date Recorded Patient Health Questionnaire-2 Score 1 11/11/2024 Internet Access Answer Date Recorded Internet Access Q1 Yes 08/31/2025 Internet Access Q2 Not on file 08/31/2025 Sex and Gender Information Value Date Recorded Sex Assigned at Male 07/15/2022 10:29 AM EDT Legal Sex Male 10:29 AM EDT Gender Identity Male 07/15/2022 10:29 AM EDT Sexual Orientation Choose not to disclose 2021 10:29 AM EDT documented as of this encounter Last Filed Vital Signs Vital Sign Reading Time Taken Comments Blood Pressure 133/90 08/31/2025 2:59 PM EST Pulse 68 08/31/2025 2:59 PM EST Temperature 36.7 C (98 F) 08/31/2025 2:59 PM EST Respiratory Rate 16 08/31/2025 2:59 PM EST Oxygen Saturation 98% 08/31/2025 2:59 PM EST Inhaled Oxygen Concentration - - Weight 82.6 kg (182 lb 3.2 oz) 08/31/2025 2:59 P M EST Height 185.4 cm (6' 1 ) 08/31/2025 2:59 PM EST Body Mass Index 24.04 08/31/2025 2:59 PM EST documented in this encounter Progress Notes * Wali Magallanes MD - 08/31/2025 2:45 PM EST Subjective Patient ID: Davion Dao is a 60 y.o. male who presents for Annual Exam. Patient comes for follow-up visit. He is doing well. Diastolic blood pressure was slightly elevated today but has been normal at home. He continues on lisinopril for hypertension. Cardiology recently switched him from amlodipine to metoprolol. He is tolerating the metoprolol without any side effects. Recent evaluation at [facility] cardiology included unremarkable Holter and nuclear stress test with normal ejection fraction. He had a repeat echocardiogram last week for evaluation of cardiomyopathy with mildly decreased EF but the results are pending at the time of this dictation. He has noted significant improvement of depression and anxiety with the use of sertraline that I will continue. He requested flu vaccination today. He is not interested in the COVID vaccination. Review of Systems Constitutional: Negative for chills, fatigue and fever. HENT: Negative for sore throat. Respiratory: Negative for cough, chest tightness and shortness of breath. Cardiovascular: Negative for chest pain, palpitations and leg swelling. Gastrointestinal: Negative for abdominal pain and blood in stool. Musculoskeletal: Frequent low back pain. Chronic problem for the patient. Has a personal history of DJD of the lumbar spine and previous extensive lumbar spine surgery afterwork-related incident back in 2000. Objective Vitals: 08/31/25 1459 BP: (!) 133/90 BP Location: Left arm Patient Position: Sitting BP Cuff Size: Adult Pulse: 68 Resp: 16 Temp: 98 ??F (36.7 ??C) TempSrc: Oral SpO2: 98% Weight: 182 lb 3.2 oz (82.6 kg) Height: 6' 1 (1.854 m) Physical Exam Constitutional: Appearance: Normal appearance. Cardiovascular: Rate and Rhythm: Normal rate and regular rhythm. Heart sounds: No murmur heard. Pulmonary: Effort: Pulmonary effort is normal. No respiratory distress. Breath sounds: No wheezing, rhonchi or rales. Abdominal: Palpations: Abdomen is soft. Tenderness: There is no abdominal tenderness. Musculoskeletal: Right lower leg: No edema. Left lower leg: No edema. Neurological: Mental Status: He is alert. Assessment/Plan Diagnoses and all orders for this visit: Hypertension, unspecified type Comments: Continue current medications. Cardiomyopathy, unspecified type (CMS/HCC) (HCC) Comments: Patient is doing well. Continue current medications and follow-up with cardiology. It seem EF is normal now. Screening for diabetes mellitus Comments: I recommended evaluation with fasting blood work listed below Orders: - Comprehensive Metabolic Panel; Future Screening for cholesterol level Comments: See above Orders: - Lipid Panel, Standard; Future Encounter for immunization - FLU VACCINE TRIVALENT [id number] (Fluarix) 19 yrs + Depression with anxiety Comments: Well-controlled on current dose of sertraline. Jock itch Comments: At the end of the visit he complained of several weeks of bilateral pruritus on the groin areas. I recommended treatment with clotrimazole/betamethasone cream for possible jock itch. He is encouragedto call if the symptoms persist. Other orders - clotrimazole-betamethasone (Lotrisone) cream; Apply topically 2 times daily for 28 days. - sertraline (Zoloft) 50 MG tablet; Take 1 tablet (50 mg) by mouth Once per day. documented in this encounter Plan of Treatment Scheduled Orders Name Type Priority Associated Diagnoses Orde r Schedule Comprehensive Metabolic Panel Lab Routine Screening for diabetes mellitus Expected: 08/31/2025 (Approximate), Expires: 08/31/2026 Lipid Panel, Standard Lab Routine Screening for cholesterol level Expected: 08/31/2025 (Approximate), Expires: 08/31/2026 documented as of this encounter Visit Diagnoses Diagnosis Hypertension, unspecified type- Primary Cardiomyopathy, unspecified type (CMS/HCC) (HCC) Screening for diabetes mellitus Screening for cholesterol level Encounter for immunization Depression with anxiety Dysthymic disorder Jock itch Dermatophytosis of groin and perianal area documented in this encounter Additional Health Concerns Assessment Noted Time PHQ-9 Depression Total Score: 7 11/11/19 25 11:45 AM EST documented as of this encounter Care Teams Water Quality Control Engineer Relationship Specialty Start Date End Date Name, MD Wali [address] [place] [address] PCP - General Family Medicine 12/21/15 documented as of this encounter
--- OUTSIDE RECORDS SUMMARY | 2025-09-02 08:08 | XMS_ITS | Encounter Summary ---
Author Organization [employer] Address [address] [facility] 7t [place] [address] Care Team Providers Care Hammersmith Helper Name Role Phone Name, Wali PEARL Primary Care Provider Reason for Visit * Reason Onset Date Comments Nurse Triage 08/22/2023 Encounter Details Date Type Department Care Team ([facility] st Contact Info) Description 08/22/2023 Telephone [facility] MEDICINE [address] [place], [place] [phone] Name, MD Wali [address] [place] [address] Nurse Triage Social History Tobacco Use Types [...] 1:27 PM EST T/C to pt. Through [employer] id - [id number] for below message, pt. Also advised to [...] elevated BP of 161/100. Pt went to [facility] and [facility] and due to long wait times [...] provider. Pt advised of NTTS services and environmental field professional provider availability. Davion Dao also given contact [...] review and further advise team nurses of [facility] for HTN management. Future Appointments Date Time Provider Department Center 10/02/2023 10:30 AM Wali Magallanes MD MEDICINE [facility] Protocol Used: Blood Pressure - High [...] MG tablet Instead of 1 as directed. Serbian Speaker documented in this encounter Plan of Treatment Not on file documented as of this encounter Visit Diagnoses Not on filedocumented in this encounter Care Teams Hammersmith Helper Relationship Specialty Start Date End Date Name, MD Wali [address] [place] [id number] PCP - General Family Medicine 12/21/15 documented as of this encounter
--- OUTSIDE RECORDS SUMMARY | 2025-09-02 08:08 | XMS_ITS | Encounter Summary ---
Author Organization [employer] Address [address] [facility] 7t [place] [address] Care Team Providers Care Certified Art Therapist Name Role Phone Name, Wali PEARL Primary Care Provider [phone] Reason for Visit * Reason Onset Date Comments Nurse Triage 10/05/2024 Encounter Details Date Type Department Care Team ([facility] st Contact Info) Description 10/05/2024 Telephone [facility] MEDICINE [address] [place], [place] [phone] Name, MD Wali [address] [place] [address] Nurse Triage Social History Tobacco Use Types [...] your housing situation today? I have codi vleez 10/29/[address] you li [...] his interpret for him not one of [facility] staff. Ptstates that he has been [...] accepted this outcome. Contact pt Spouse at [phone] documented in this encounter Plan of Treatment Not on file documented as of this encounter Visit Diagnoses Not on filedocumented in this encounter Additional Health Concerns Assessment Noted Time PHQ-9 Depression Total Score: 0 02/26/20 24 10:14 AM EST documented as of this encounter Care Teams Certified Art Therapist Relationship Specialty Start Date End Date Name, MD Wali [address] [place] [address] PCP - General Family Medicine 12/21/15 documented as of this encounter
--- OUTSIDE RECORDS SUMMARY | 2025-09-02 08:08 | XMS_ITS | Encounter Summary ---
Author Organization [employer] Address [address] [facility] 7t [place] [address] Care Team Providers Care Resolute Professional Name Role Phone Name, Wali PEARL Primary Care Provider [phone] Reason for Visit * Reason Onset Date Comments Nurse Triage 04/22/2024 Encounter Details Date Type Department Care Team ([facility] st Contact Info) Description 04/22/2024 Telephone [facility] MEDICINE [address] [place], [place] [phone] Name, MD Wali [address] [place] [address] Nurse Triage Social History Tobacco Use Types [...] ER precautions andreasons to call back. Reviewed [facility] operating hours and that wait times vary. [...] documented as of this encounter Care Teams Resolute Professional Relationship Specialty Start Date End Date Name, MD aWli [address] [place] [address] PCP - General Family Medicine 12/21/15 documented as of this encounter
--- OUTSIDE RECORDS SUMMARY | 2025-09-02 08:08 | XMS_ITS | Encounter Summary ---
Author Organization [employer] Address [address] [facility] 7t [place] [address] Care Team Providers Care Keysmith Name Role Phone Name, Wali PEARL Primary Care Provider [phone] Reason for Visit * Reason Onset Date Comments Results 08/04/2024 Medication Question 08/04/2024 Encounter Details Date Type Department Care Team ([facility] st Contact Info) Description 08/04/[address] [facility] MEDICINE [address] [place] [address] Name, MD Wali [address] [place] [address] Results; Medication Question Social History Tobacco Use [...] results: swab Date when done: 08/03/24 Facility: [facility] walk in Pt would like to know if medication can be prescribe. documented in this encounter Plan of Treatment Not on file documented as of this encounter Visit Diagnoses Not on filedocumented in this encounter Additional Health Concerns Assessment Noted Time PHQ-9 Depression Total Score: 0 11/10/19 10:14 AM EST documented as of this encounter Care Teams Keysmith Relationship Specialty Start Date End Date Name, MD Wail [address] [place] [address] PCP - General Family Medicine 12/21/15 documented as of this encounter
--- OUTSIDE RECORDS SUMMARY | 2025-09-02 08:08 | XMS_ITS | Encounter Summary ---
Author Organization [employer] Address [address] [facility] 7t [place] [address] Care Team Providers Care Turkish Rubber Name Role Phone Name, Wali PEARL Primary Care Provider [phone] Reason for Visit * Reason Comments Med Refill Encounter Details Date Type Department Care Team ([facility] st Contact Info) Description 08/17/2024 Refill [facility] MEDICINE [address] [place] [address] Name, MD Wali [address] [place], [place] [phone] Social History Tobacco Use Types Packs/Day Years [...] documented as of this encounter Care Teams Turkish Rubber Relationship Specialty Start Date End Date Name, MD Wali [address] [place] [address] PCP - General Family Medicine 12/21/15 documented as of this encounter
--- OUTSIDE RECORDS SUMMARY | 2025-09-02 08:08 | XMS_ITS | Encounter Summary ---
Author Organization [employer] Address [address] [facility] 7t [place] [address] Care Team Providers Care Behavioral Instructor Name Role Phone Name, Wali PEARL Primary Care Provider [phone] Encounter Details Date Type Department Care Team (Late st Contact Info) Description 09/26/2022 Orders Only [facility] MEDICINE [address] [place] [address] Olimpia Thomas LPN Social History Tobacco Use [...] on filedocumented in this encounter Care Teams Behavioral Instructor Relationship Specialty Start Date End Date Name, MD Wali [address] [place] [address] PCP - General Family Medicine 12/21/15 documented as of this encounter
--- OUTSIDE RECORDS SUMMARY | 2025-09-02 08:08 | XMS_ITS | Clinical Summary ---
Author Organization [facility] Address [address] [place] [address] Care Team Providers Care Pipe Layer Helper Name Role Phone Unavailable Primary Care Provider [...] on file Sexual Orientation Not on file Plan of Treatment Health Maintenance Due Date Last Done Comments DTaP,Tdap,and Td Vaccines (1 - Tdap) 1982 Pneumococcal Vaccine: 50+ Ye ars (1 of 1 - PCV) 2013 Zoster Vaccines (1 of 2) 2013 Depression Screening 09/15/2024 COVID-19 Vaccine (1 - 2024-2 6 season) 2025 Influenza Vaccine (#1) 2025 RSV [...]
--- OUTSIDE RECORDS SUMMARY | 2025-09-02 08:09 | XMS_ITS | Clinical Summary ---
Author Organization [employer] Address [address] [facility] 7[address] [place] [address] Care Team Providers Care Rfid Analyst Name Role Phone Name, Wali PEARL Primary Care Provider [phone] Allergies No known active allergies Medications * This document contains information received from the source organization and may not represent a complete record from that organization. Blood Pressure Monitoring (Omron 3 Series BP Monitor) device USE TO CHECK BLOOD PRESSURE TWICE DAILY 2 Active gabapentin (Neurontin) 300 MG capsule Take 1 capsule by mouth 3 times daily. 5 Active lidocaine (Xylocaine) 5 % ointment Apply topically 2 times daily. In left knee 50 g 1 3 Active albuterol 108 (90 Base) MCG/ACT inhalerIndicati ons:Viral upper respiratory infection Inhale 2 puffs every 6 (six) hours if needed for wheezing. 18 g 11 4 Active Spacer/Aero-Hol d Chamber Mask miscIndications :Viral upper respiratory infection Use as directed with inhaler 1 each 4 Active lisinopril 20 MG tablet Take 1 tablet (20 mg) by mouth Once per day. TAKE 1 TABLET(20 MG) BY MOUTH IN THE MORNING 30 tablet 11 4 Active aspirin 81 MG chewable tablet Chew 81 mg Once per day. 5 Active ibuprofen 800 MG tablet TAKE 1 TABLET(800 MG) BY MOUTH THREE TIMES DAILY 90 tablet 5 Active cyclobenzaprine (Flexeril) 10 MG tabletIndicatio ns:Low back pain at multiple sites TAKE 1 TABLET BY MOUTH THREE TIMES DAILY NEEDED FOR MUSCLE SPASMS FOR 7 DAYS 20 tablet 5 Active Diclofenac Sodium 1 % gel APPLY TOPICALLY TO THE AFFECTED AREA TWICE DAILY 100 g 2 5 Active cetirizine (ZyrTEC) 10 MG tabletIndicatio ns:Viral upper respiratory infection Take 1 tablet (10 mg) by mouth Once per day. 30 tablet 5 5 12/27/19 26 Active metoprolol succinate XL (Toprol-XL) 50 MG 24 hr tablet Take 1 tablet by mouth Once per day. Active clotrimazole-be tamethasone (Lotrisone) cream Apply topically 2 times daily for 28 days. 45 g 2 5 09/28/19 26 Active sertraline (Zoloft) 50 MG tablet Take 1 tablet (50 mg) by mouth Once per day. 30 tablet 11 5 08/31/20 26 Active amLODIPine (Norvasc) 2.5 MG tablet Take 2 tablets (5 mg) by mouth Once per day. 60 tablet 11 5 08/31/20 25 Discontinu ed(Therapy completed) sertraline (Zoloft) 25 MG tablet Take 1 tablet (25 mg) by mouth Once per day for 7 days, THEN 2 tablets (50 mg) Once per day. 127 tablet 2 5 08/31/20 25 Discontinu ed(Dose adjustment ) Active Problems Problem Noted Date Diagnosed Date [...] of colonoscopy 10/14/2022 Overview (10/14/2022): [place] [facility] He was recommended to repeat in 10 years Shoulder pain 08/18/2017 Joint pain 12/21/2015 Chronic pain 04/27/2015 Overview (10/14/2022): Also [place] [facility] [place] HTN (hypertension) 04/27/2015 Assessment [...] Encounters Date Type Department Care Team Description 08/31/2025 2:45 PM EST Office Visit [facility] [address] [place] [address] Wali Magallanes MD Hypertension, unspecified type (Primary Dx); Cardiomyopathy, unspecified type (CMS/HCC) (HCC); Screening for diabetes mellitus; Screening for cholesterol level; Encounter for immunization; Depression with anxiety; Jock itch 08/31/2025 Travel 08/30/2025 Telephone [facility] [address] [place] [address] Wali Magallanes MD Chart Prep 08/23/2025 Patient Outreach [facility] [address] [place] [id number] Wali Magallanes MD Pre-visit Planning (Pre-visit planning - LVM ) 07/06/2025 Orders Only [facility] External Provider, [facility] 06/29/2025 Refill [facility] [address] [place] [address] Vashon Emma, [facility] Viral upper respiratory infection 06/29/2025 Refill [facility] [address] [place] [address] Wali Magallanes MD Low back pain at multiple sites; Viral upper respiratory infection 06/22/2025 Refill [facility] [address] [place] [address] Wali Magallanes MD from Last 3 Months Immunizations Immunization Administration Dates Next Due Influenza injectable quadriv alent preservative free 08/08/2021,06/30/2020,10/18/2019 Influenza, IIV3, injectable 07/14/2014 Influenza, Injectable, MDCK, preservative free 08/15/2024 Influenza, seasonal, injecta ble, preservative free 08/31/2025 Td (adult), unspecified 03/29/2013 Tdap 06/10/2018 Family History Medical History Relation Name Comments No Known Problems Father Hypertension Mother No Known Problems Sister No Known Problems Son Relation Name Status Comments Father Mother Sister Son Social History Tobacco Use Types Packs/Day Years [...] Mass Index 24.04 08/31/2025 2:59 PM EST Plan of Treatment Health Maintenance Due Date Last Done Comments CT Colonography 1963 FIT DNA/Cologuard 1965 FIT 1965 FOBT 1965 HIV Screening 1965 Sigmoidoscopy 1965 Pneumococcal Vaccine: 50+ Years (1 of 1 - PCV) 2013 Zoster Vaccines (1 of 2) 2013 Colonoscopy 10/25/2024 10/25/2014 Colorectal Cancer Screening 10/25/2024 COVID-19 Vaccine ( season) 2025 01/25/2021, 12/26/2020 Depression Screening 11/11/2025 11/11/2024, 11/11/19 Alcohol/Substance Use Screening 08/31/2026 08/31/2025 Disability Screening 08/31/2026 08/31/2025 SDOH Screening 08/31/2026 08/31/2025 Tobacco Screening 08/31/2026 08/31/2025 DTaP/Tdap/Td Vaccines (2 - Td or Tdap) 06/10/2028 06/10/2018, 03/29/2013 Lipid Panel 11/16/2028 11/17/2023, 09/17, 11/02/2021, Additional history exists RSV Patients and Patients Aged 60 years or older (1 - 1-dose 75+ series) 2038 Hepatitis C Screening Completed 10/28/2022 Influenza Vaccine Completed 08/31/2025, , 08/08/2021, Additional history exists HIB Vaccines Aged Out [...] AM EDT Narrative 07/08/2025 2:47 PM EDT [address] [place] [address] Nuclear Medicine Report Signed Patient: Davion Dao MR#: [id number] 0 : 1965 Acct:[id number] Age/Sex: 60 / M ADM Date: 07/06/25 Loc: .CARD Attending Dr: Roldan Charles MD Ordering Physician: Roldan Charles MD Date of Service: 07/06/25 Procedure(s): NM angie perf SPECT rest str Accession Number(s): [id number] cc: Name,Wali PEARL; Roldan Charles MD Reason [...] Roldan Charles MD 07/08/2025 02:44 PM EDT RP Dictated By: Roldan Charles MD Signed By: <Electronically signed by Roldan Charles MD in OV> 07/08/25 1444 DD/ 1038 TD/TT: 07/07/25 1345 [address]: Procedure Note Donotuseinterpreter, Image - 07/08/[address] [address] Nuclear Medicine Report Signed Patient: Omar Dao#: [id number] 0 : 1965Acct:[id number] Age/Sex: 60 / MADM Date: 07/06/25 Loc: [facility] Attending Dr: Roldan Charles MD Ordering Physician: Roldan Charles MD Date of Service: 07/06/25 Procedure(s): NM angie perf SPECT rest str Accession Number(s): [id number] cc: Name,Wali PEARL; Roldan Charles MD Reason [...] Roldan Charles MD 07/08/2025 02:44 PM EDT RP Dictated By: Roldan Charles MD Signed By: <Electronically signed by Roldan Charles MD in OV> 07/08/25 1444 DD/ 1038 TD/TT: 07/07/25 1345 [address]: [facility] External Provider IMG NM PROCEDURES Final Result * (ABNORMAL) Lipid Panel, Standard (11/17/2023 8:06 AM EST) Triglycerides 64 <150 mg/dL [facility] Comment:Desirable Triglyceri de: less than 150 mg/dLBorderline High Triglyceride 150-199 mg/dLHigh Triglyceride: 200-499 mg/dLVery High Triglyceride: greater than or equal to 5OO mg/dL Cholesterol 174 <200 mg/dL [facility] Comment:Desirable Cholestero l: less than 200 mg/dLBorderline High Cholesterol: 200-239 mg/dLHigh Cholesterol: greater than 239 mg/dL LDL Cholesterol Calculated 103(H) <100 mg/dL [facility] Comment:Desirable LDL: less than 100 mg/dLNear Optimal/Above Optimal LDL: 110- 129 mg/dLBorderline High LDL: 130-159 mg/dLHigh LDL: 160-189 mg/dLVery High LDL: greater than or equal to 190 mg/dL HDL Cholesterol 59 >40 mg/dL [facility] Comment:Desirable HDL: great er than 40 mg/dL Note: This HDL assay may give artificially low results in patients with liver disease. Blood Venous blood specimen / Unknown 11/17/2023 8:06 AM EST 11/17/2023 11:25 AM EST Wali Magallanes MD LAB BLOOD ORDERABLES Final Resul t Performing Organization Address City/[facility]/ZIP Co de Phone Number [facility] [address] [place] [phone] * Hepatitis C Antibody with Reflex to HCV, RNA, Quantitative, Real-Time PCR (10/28/2022 8:03 AM EST) Hepatitis C Antibody NON-REACT ALEN NON-REACT ALEN Clink Index 0.04 <1.00 Clink Comment: HCV antibody was non-reactive. There is no laboratory evidence of HCV infection. In most cases, no further action is required. However, if recent HCV exposure is suspected, a test for HCV RNA (test code 93279) is suggested. For additional information please refer to http://education.[employer]/faq/YMG17v6 (This link is being provided for informational/ educational purposes only.) Blood Venous blood specimen / Unknown 10/28/2022 8:03 AM EST 10/28/2022 8:03 AM EST Narrative [facility] - 10/28/2022 10:47 PM EST FASTING:YES FASTING: YES Wali Magallanes MD LAB BLOOD ORDERABLES Final Resul t [facility] [address] [facility] [place] [address] [employer] [address] [facility], ([address]) [place] [address] * Hm Colonoscopy (10/25/2014 8:52 AM EST) Colonoscopy Normal Normal Narrative Yasmeen Christensen - 10/25/2014 8:52 AM EST Recommended [address] [facility] Provider HEALTH MAINTENANCE Final Result from Last 3 Months or Most Recently Relevant to Health Maintenance Insurance [id number] ONE CARE < 65 [place] [id number] Care Teams Rfid Analyst Relationship Specialty Start Date End Date Name, MD Wali [address] [place] [phone] PCP - General Family Medicine 12/21/15
--- OUTSIDE RECORDS SUMMARY | 2025-09-02 08:09 | XMS_ITS | Encounter Summary ---
Author Organization [employer] Address [address] [facility] 7[address] [place] [address] Care Team Providers Care Community Development Worker Name Role Phone Name, Wali PEARL Primary Care Provider [phone] Reason for Visit * Reason Onset Date Comments Chart Prep 08/30/2025 Encounter Details Date Type Department Care Team ([facility] st Contact Info) Description 08/30/2025 Telephone [facility] [address] [place], [place] [phone] Name, MD Wali [address] [place] [address] Chart Prep Social History Tobacco Use Types Packs/Day Years [...] encounter Miscellaneous Notes * Telephone Encounter - Jeannette Allen [place] - 08/30/2025 5:27 PM EST Chart Prep Labs: done Images: done Referrals: complete Vaccines due: Covid, Flu, PCV20, and Zoster Screenings: colonoscopyAlcohol/Substance Use Screening Overdue care gaps: SBIRT, SDOH, Disability screen, and Tobacco documented in this encounter Plan of Treatment Not on file documented as of this encounter Visit Diagnoses Not on filedocumented in this encounter Additional Health Concerns Assessment Noted Time PHQ-9 Depression Total Score: 7 11/11/19 25 11:45 AM EST documented as of this encounter Care Teams Community Development Worker Relationship Specialty Start Date End Date Name, MD Wali [address] [place] [address] PCP - General Family Medicine 12/21/15 documented as of this encounter
--- OUTSIDE RECORDS SUMMARY | 2025-09-02 08:09 | XMS_ITS | Encounter Summary ---
Author Organization [employer] Address [address] [facility] [address] [place] [address] Care Team Providers Care Acls Specialist Name Role Phone Name, Wali PEARL Primary Care Provider [phone] Reason for Visit * Reason Comments Med Refill Encounter Details Date Type Department Care Team (Late st Contact Info) Description 02/06/2023 Refill [facility] [address] [place] [address] Name, MD Wali [address] [place] [address] Social History Tobacco Use Types Packs/Day Years [...] on filedocumented in this encounter Care Teams Acls Specialist Relationship Specialty Start Date End Date Name, MD Wali [address] [place] [address] PCP - General Family Medicine 12/21/15 documented as of this encounter
--- OUTSIDE RECORDS SUMMARY | 2025-09-02 08:09 | XMS_ITS | Encounter Summary ---
Author Organization [employer] Address [address] [facility] [address] [place] [address] Care Team Providers Care Harbor Pilot Name Role Phone Name, Wali PEARL Primary Care Provider [phone] Encounter Details Date Type Department Care Team (Latest Contact Info) Description 08/31/2025 Travel Social History Tobacco Use Types Packs/Day [...] documented as of this encounter Care Teams Harbor Pilot Relationship Specialty Start Date End Date Name, MD Wali [address] [place] [phone] PCP - General Family Medicine 12/21/15 documented as of this encounter
--- OUTSIDE RECORDS SUMMARY | 2025-09-02 08:09 | XMS_ITS | Encounter Summary ---
Author Organization [employer] Address [address] [facility] [address] [place] [address] Care Team Providers Care Non Linear Editor Name Role Phone Name, Wali PEARL Primary Care Provider [phone] Encounter Details Date Type Department Care Team (Late st Contact Info) Description 02/17/2023 Abstract [facility] [address] [place], [place] [phone] Name, MD Wali [address] [place] [address] Social History Tobacco Use Types Packs/Day Years [...] on filedocumented in this encounter Care Teams Non Linear Editor Relationship Specialty Start Date End Date Name, MD Wali [address] [place] [address] PCP - General Family Medicine 12/21/15 documented as of this encounter
[2025-09-02 13:40] LABS: Alanine Aminotransferase 57 U/L (0-40); Albumin Level 4.1 g/dL (3.5-5.0); Alkaline Phosphatase 57 U/L (39-117); Anion Gap 9 (12-20); Aspartate Amino Transferase 33 U/L (5-37); Blood Urea Nitrogen 13 mg/dL (9-16); Calcium 9.3 mg/dL (8.4-10.2); Carbon Dioxide 31 mmol/L (22-29); Chloride 105 mmol/L (96-108); Cholesterol 127 mg/dL (<200); Estimated Glomerular Filt Rate > 60; HDL Cholesterol 39 mg/dL (>40); Potassium 4.0 mmol/L (3.3-5.1); Sodium 141 mmol/L (135-145); Total Protein 6.8 g/dL (6.5-8.0); Triglycerides 75 mg/dL (<150)
== END 2025-09-02 08:05 | disposition home or self-care (01) ==
LOC: HO.HHCL 08:04
PROVIDERS: PCP Internal Medicine Geriatric Medicine; Visit Provider Internal Medicine Geriatric Medicine
DX: Z13.1 Encounter for screening for diabetes mellitus (principal); Z13.220 Encounter for screening for lipoid disorders; Z13.6 Encounter for screening for cardiovascular disorders
CPT/HCPCS: 36415; 80053; 80061